=== PATIENT | male | born 1940 | race Caucasian/White ===

== ENCOUNTER 2020-03-17 18:17 | Inpatient (IN) | payer MEDICARE, MEDICAID ==
[~2020-03-17] VITALS: Ht 175.3 cm; Wt 86.2 kg
[2020-03-17 19:09] VITALS: BP 110/56
[2020-03-17 20:04] VITALS: BP 126/62
[2020-03-17 20:14] LABS: APPEARANCE,URINE SLIGHTLY CLOUDY; BILIRUBIN, URINE NEGATIVE (NEGATIVE); GLUCOSE, URINE (UA) NEGATIVE (NEGATIVE); KETONES,URINE 1+ (NEGATIVE); LEUKOCYTE ESTERASE ,URINE 2+ (NEGATIVE); NITRITE,URINE POSITIVE (NEGATIVE); PH,URINE 5 (4.5-8.0); PROTEIN,URINE 3+ (NEGATIVE); UROBILINOGEN,URINE NORMAL MG/DL (0.0-1.0)
[2020-03-17 20:15] LABS: COLOR,URINE YELLOW
[2020-03-17 20:15] LABS: BASOPHILS % (AUTO) 0.7 % (0.0-2.0); EOSINOPHILS % (AUTO) 0.1 % (0.0-3.0); HEMATOCRIT 45.5 % (42.0-52.0); HEMOGLOBIN 15.7 G/DL (14.2-18.0); LYMPHOCYTES % (AUTO) 17.8 % (20.0-45.0); MEAN CORPUSCULAR VOLUME 88 FL (80-99); MONOCYTES % (AUTO) 12.7 % (1.0-10.0); NEUTROPHILS % (AUTO) 68.8 % (45.0-75.0); PLATELET COUNT 111 K/UL (150-450); RED BLOOD COUNT 5.14 M/UL (4.70-6.10); RED CELL DISTRIBUTION WIDTH 14.4 % (11.6-14.8); WHITE BLOOD COUNT 7.8 K/UL (4.8-10.8)
[2020-03-17 20:27] LABS: CALCIUM 9.1 MG/DL (8.5-10.1); CREATININE 2.1 MG/DL (0.55-1.30); POTASSIUM 4.2 MMOL/L (3.5-5.1)
[2020-03-17] MEDS ORDERED: Nitroglycerin Subl 0.4mg tab SL PRN (20:45)
[2020-03-17] MEDS ORDERED: Milk of Magnesia 30ml Ud ORAL PRN (20:45)
[2020-03-17 20:52] VITALS: BP 140/87
[2020-03-17 20:59] LABS: ALBUMIN 3.3 G/DL (3.4-5.0); ALBUMIN/GLOBULIN RATIO 0.8 (1.0-2.7); BILIRUBIN,TOTAL 0.4 MG/DL (0.2-1.0); CKMB 1.9 NG/ML (0.0-3.6)
[2020-03-17] MEDS ORDERED: Heparin 5000 units/ml inj SUBQ SCH (21:00)
[2020-03-17 22:10] VITALS: BP 251/203
[2020-03-17 22:32] VITALS: BP 151/96
--- NOTE | 2020-03-17 22:59 | Emergency Room Report ---
History of Present Illness General Chief Complaint: Vomiting Source: Medical Record, EMS Present Illness HPI 79-year-old male presents to ED for evaluation. In by EMS from nursing home facility. Reported fever, cough, shortness of breath x1 day. Febrile at facility. Patient is a poor historian. Denies chest pain or shortness of breath. No other aggravating relieving factors. 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 COVID-19 Screening: Negative COVID-19 COVID-19 Testing Source: 03/04 Patient History Past Medical History: HTN Past Surgical History: none Pertinent Family History: none Social History: Denies: smoking, alcohol use, drug use Immunizations: UTD Reviewed Nursing Documentation: PMH: Agreed; PSxH: Agreed Nursing Documentation-PMH Past Medical History: No History, Except For Hx Cardiac Problems: Yes - atherosclerotic heart disease, hyperlipidemia, Hx Hypertension: Yes Review of Systems All Other Systems: limited Physical Exam Vital Signs Date Time Temp Pulse Resp B/P (MAP) Pulse Ox O2 Delivery O2 Flow Rate FiO2 03/17/20 18:22 99.3 82 22 110/56 (74) 94 Room Air 03/17/20 20:20 4.0 Sp02 EP Interpretation: reviewed, normal General Appearance: no apparent distress, alert, GCS 15, non-toxic Head: normocephalic, atraumatic Eyes: bilateral eye normal inspection, bilateral eye PERRL ENT: hearing grossly normal, normal pharynx, no angioedema, normal voice Neck: full range of motion, supple/symm/no masses Respiratory: chest non-tender, crackles, speaking full sentences Cardiovascular #1: regular rate, rhythm, no edema Cardiovascular #2: 2+ carotid (R), 2+ carotid (L), 2+ radial (R), 2+ radial ( L), 2+ dorsalis pedis (R), 2+ dorsalis pedis (L) Gastrointestinal: normal bowel sounds, non tender, soft, non-distended, no guarding, no rebound Rectal: deferred Genitourinary: normal inspection, no CVA tenderness Musculoskeletal: back normal, normal range of motion, gait/station normal, non-tender Neurologic: alert, motor strength/tone normal, oriented x3, sensory intact, responsive, speech normal Psychiatric: judgement/insight normal, memory normal, mood/affect normal, no suicidal/homicidal ideation Reflexes: 3+ bicep (R), 3+ bicep (L), 3+ tricep (R), 3+ tricep (L), 3+ knee (R), 3+ knee (L) Skin: other - see nursing notes Lymphatic: no adenopathy Procedures Critical Care Time Critical Care Time i. I feel this is a highly complex case requiring extensive working including EKG/Rhythm strip, Xray/CT/US, Blood/urine lab work, repeat exams while in ED, and administration of strong opiates/narcotics for pain control, admission to hospital or close patient follow up. Total time: 60 min bedside evaluation and treatment excludes procedures (EKG). Reason for critical care: Respiratory distress, hypoxia, fever Possible complications: hypotension, hypertension, WA, shock, arrhythmias, metabolic acidosis, end organ damage, respiratory failure. Interventions: Labs, EKG, chest x-ray, suctioning by respiratory, nonrebreather, rapid Covid, broad-spectrum antibiotics, dexamethasone, Lovenox Course: Patient presenting with fever, cough, shortness of breath from nursing home facility. Patient very congested and suctioning provided by respiratory. Placed on nonrebreather with O2 sats improved. Covid positive. Has UTI. Troponin elevated. Antibiotics given. Lovenox given. Dexamethasone given. BP elevated. Given hydralazine with BP improved Consultations: nursing staff, EMS, family Performed by: Dr Estrella Tolerated well condition =serious j. because of unstable vital signs this patient had a condition that could potentially threaten life or limb. I feel this is a critical patient who required my full attention while patient was considered critical. Total Critical Care Time excluding procedures was greater than 60 minutes Medical Decision Making Diagnostic Impression: Primary Impression: COVID-19 Additional Impressions: UTI (urinary tract infection) Qualified Codes: N39.0 - Urinary tract infection, site not specified Elevated troponin Hypertension Qualified Codes: I10 - Essential (primary) hypertension Renal insufficiency ER Course Hospital Course 79 yo M presents with fevre, cough, SOB Differential diagnoses include: Pneumonia, CHF exacerbation, pneumothorax, fluid overload Clinical course Patient placed on stretcher. in isolation. i wore full PPE. 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 After initial history and physical, I ordered labs, IV fluids, EKG, chest x-ray, blood cultures, UA. Vigorous suctioning and placed on nonrebreather with O2 sats and respiratory status improved Labs -no leukocytosis, hemoglobin/hematocrit stable, BUN/Cr elevated, lactate elevated, troponins elevated CXR -no acute consolidation EKG - NSR, no acute ishcemic changes interpreted by me Covid positive. Antibiotics given. Lovenox given. Dexamethasone given. BP treated with hydralazine and labetalol. Case discussed with Dr. Alexander and he agreed to the patient to his service for further care and support I feel this is a highly complex case requiring extensive working including EKG/Rhythm strip, Xray/CT/US, Blood/urine lab work, repeat exams while in ED, and administration of strong opiates/narcotics for pain control, admission to hospital or close patient follow up. Diagnosis - COVID19, UTI, elevated trop, hypertension, renal insufficiency Patient admitted to telemetry in serious condition Laboratory Tests Test 03/17/20 19:20 03/17/20 19:55 03/17/20 20:50 White Blood Count 7.8 K/UL (4.8-10.8) Red Blood Count 5.14 M/UL (4.70-6.10) Hemoglobin 15.7 G/DL (14.2-18.0) Hematocrit 45.5 % (42.0-52.0) Mean Corpuscular Volume 88 FL (80-99) Mean Corpuscular Hemoglobin 30.6 PG (27.0-31.0) Mean Corpuscular Hemoglobin Concent 34.5 G/DL (32.0-36.0) Red Cell Distribution Width 14.4 % (11.6-14.8) Platelet Count 111 K/UL (150-450) L Mean Platelet Volume 6.4 FL (6.5-10.1) L Neutrophils (%) (Auto) 68.8 % (45.0-75.0) Lymphocytes (%) (Auto) 17.8 % (20.0-45.0) L Monocytes (%) (Auto) 12.7 % (1.0-10.0) H Eosinophils (%) (Auto) 0.1 % (0.0-3.0) Basophils (%) (Auto) 0.7 % (0.0-2.0) Prothrombin Time 11.5 SEC (9.30-11.50) Prothromb Time International Ratio 1.0 (0.9-1.1) Activated Partial Thromboplast Time 32 SEC (23-33) D-Dimer 2.50 mg/L FEU (0.00-0.49) H Sodium Level 142 MMOL/L (136-145) Potassium Level 4.2 MMOL/L (3.5-5.1) Chloride Level 106 MMOL/L (98-107) Carbon Dioxide Level 23 MMOL/L (21-32) Anion Gap 13 mmol/L (5-15) Blood Urea Nitrogen 42 mg/dL (7-18) H Creatinine 2.1 MG/DL (0.55-1.30) H Estimat Glomerular Filtration Rate 30.5 mL/min (>60) Glucose Level 91 MG/DL (74-106) Lactic Acid Level 2.90 mmol/L (0.4-2.0) H 2.20 mmol/L (0.66-2.22) Calcium Level 9.1 MG/DL (8.5-10.1) Ferritin 347 NG/ML (8-388) Total Bilirubin 0.4 MG/DL (0.2-1.0) Aspartate Amino Transf (AST/SGOT) 33 U/L (15-37) Alanine Aminotransferase (ALT/SGPT) 29 U/L (12-78) Alkaline Phosphatase 84 U/L (46-116) Lactate Dehydrogenase 160 U/L (81-234) Total Creatine Kinase 129 U/L (26-308) Creatine Kinase MB 1.9 NG/ML (0.0-3.6) Creatine Kinase MB Relative Index 1.4 Troponin I 0.474 ng/mL (0.000-0.056) C-Reactive Protein, Quantitative 13.6 mg/dL (0.00-0.90) H Pro-B-Type Natriuretic Peptide 3933 pg/mL (0-125) H Total Protein 7.7 G/DL (6.4-8.2) Albumin 3.3 G/DL (3.4-5.0) L Globulin 4.4 g/dL Albumin/Globulin Ratio 0.8 (1.0-2.7) L Lipase 156 U/L (73-393) Urine Color Yellow Urine Appearance Slightly cloudy Urine pH 5 (4.5-8.0) Urine Specific [place] 1.020 (1.005-1.035) Urine Protein 3+ (NEGATIVE) H Urine Glucose (UA) Negative (NEGATIVE) Urine Ketones 1+ (NEGATIVE) H Urine Blood 3+ (NEGATIVE) H Urine Nitrite Positive (NEGATIVE) H Urine Bilirubin Negative (NEGATIVE) Urine Urobilinogen Normal MG/DL (0.0-1.0) Urine Leukocyte Esterase 2+ (NEGATIVE) H Urine RBC 5-10 /HPF (0 - 0) H Urine WBC 20-30 /HPF (0 - 0) H Urine Squamous Epithelial Cells Occasional /LPF Urine Bacteria Many /HPF (NONE) H EKG Diagnostic Results Troponin ordered: Yes Rate: normal Rhythm: NSR ST Segments: no acute changes ASA given to the pt in ED: Yes Rhythm Strip Diag. Results EP Interpretation: yes Rhythm: NSR, no PVC's, no ectopy Chest X-Ray Diagnostic Results Chest X-Ray Diagnostic Results : Chest X-Ray Ordered: Yes # of Views/Limited/Complete: 1 View Indication: Shortness of Breath EP Interpretation: Yes Interpretation: no consolidation, no effusion, no pneumothorax, no acute cardiopulmonary disease Impression: No acute disease Electronically Signed by: Electronically signed by Gerson Estrella MD Last Vital Signs Date Time Temp Pulse Resp B/P (MAP) Pulse Ox O2 Delivery O2 Flow Rate FiO2 03/17/20 22:32 151/96 03/17/20 22:10 111 24 98 Non-Rebreather 15.0 03/17/20 20:52 99.3 Status: improved Disposition: ADMITTED INPATIENT Condition: Serious Referrals: Mike Alexander MD (PCP) Gerson Estrella MD Mar 17, 2020 22:59
[2020-03-17] MEDS ORDERED: Enoxaparin 40mg Inj SUBQ ONE (23:00)
[2020-03-17] MEDS ORDERED: Labetalol 5mg/ml 20ml vial IV ONE (23:00)
[2020-03-17] MEDS ORDERED: dexAMETHasone 10mg/ml Inj IV ONE (23:00)
[2020-03-18] MEDS ORDERED: Albuterol ud Inhalation HHN ONE
[2020-03-18] MEDS ORDERED: GABAPENTIN100 MG ORAL (03:15)
[2020-03-18] MEDS ORDERED: RIVASTIGMINE1.5 MG PO (03:15)
[2020-03-18] MEDS ORDERED: AMLODIPINE BES2.5 MG ORAL (03:15)
[2020-03-18] MEDS ORDERED: MIRALAX17 G2 ORAL (03:15)
[2020-03-18] MEDS ORDERED: ATORVASTATIN CA20 MG ORAL (03:15)
[2020-03-18] MEDS ORDERED: COREG6.25 MG ORAL (03:15)
[2020-03-18] MEDS ORDERED: ASPIRIN81 MG ORAL (03:15)
[2020-03-18] MEDS ORDERED: SERTRALINE HCL25 MG ORAL (03:20)
[2020-03-18] MEDS ORDERED: ACETAMINOPHEN325 M1 ORAL ×2 (03:20)
[2020-03-18] MEDS ORDERED: TRAZODONE HCL50 MG ORAL (03:20)
[2020-03-18] MEDS ORDERED: PLAVIX75 MG ORAL (03:20)
[2020-03-18 04:00] VITALS: BP 121/70
--- NOTE | 2020-03-18 04:14 | Consultation ---
DATE OF CONSULTATION: 03/17/2020 CARDIOLOGY CONSULTATION CONSULTING PHYSICIAN: Joel Rowe M.D. REQUESTING PHYSICIAN: Mike Alexander M.D. REASON FOR CONSULTATION: Elevated troponin level. HISTORY OF PRESENT ILLNESS: This 79-year-old male, residing at a long term facility was febrile with shortness of breath and cough. He was brought to the emergency room for evaluation where a rapid COVID-19 swab was confirmatory as positive. The patient did not have any chest pain, although had some shortness of breath according to staff members. His laboratory values in the emergency room were notable for an elevated troponin level of 0.41. I have been asked to address cardiovascular care and management. PAST MEDICAL HISTORY: Hypertension, hyperlipidemia, ____, and dementia. MEDICATIONS: Reviewed and reconciled. ALLERGIES: None known. SOCIAL HISTORY: No record of smoking, alcohol, or substance abuse. FAMILY HISTORY: Not known. REVIEW OF SYSTEMS: Cannot be reliably obtained. PHYSICAL EXAMINATION: VITAL SIGNS: Blood pressure 110/56, pulse 82, respirations 22, temperature 99.3. HEENT: Conjunctivae pink. Oropharynx clear. No thrush. NECK: Supple. No adenopathy. LUNGS: Coarse breath sounds with rhonchi. CARDIAC: Regular rhythm and rate. Normal S1 and S2 with a fourth heart sound. ABDOMEN: Soft. EXTREMITIES: No edema. LABORATORY DATA: D-dimer 2.5. ABG, 7.26, 32, 67. White count 7.8 and hemoglobin 15.7. Urinalysis with 20 to 30 white cells. Lactic acid 2.9. Troponin 0.47. CRP 14. Pro-natriuretic peptide 3933. BUN 42, creatinine 2.1, potassium 4.2, chloride 106, sodium 142, and bicarb 23. IMPRESSION: 1. Critical condition. 2. Guarded prognosis. 3. COVID-19 pneumonia. 4. Hypoxia. 5. Acute respiratory insufficiency. 6. Acute myocardial ischemia and possible [id number] myocardial infarction. 7. Acute diastolic congestive heart failure. 8. Lactic acidosis. 9. Acute and possibly chronic kidney disease. PLAN: 1. Cardiac monitoring. 2. Isolation. 3. Full anticoagulation. 4. Hold diuresis. 5. Serial troponin level. 6. Antiplatelet therapy. 7. Beta blockade and nitrates. 8. Reassess volume status and consider diuresis over the next 24 hours. 9. Follow up troponin. 10. Lactic acid levels are pending. Joel Rowe M.D. DR: ERNIE JOB#: [id number] CC:
[2020-03-18] MEDS ORDERED: Piperacillin/Tazobactam 3.375 GM in NS 110 ML IVPB SCH (06:00)
[2020-03-18 08:00] VITALS: BP 142/101
[2020-03-18] MEDS: Enoxaparin 80mg Inj SUBQ SCH (09:00)
--- NOTE | 2020-03-18 09:31 | Diagnostic Imaging Report ---
Indication: Cough Technique: XRAY Chest 1v Comparison: None Findings: Heart is enlarged. There is evidence of prior cardiac surgery. Mediastinal contours are sharp. Thoracic aorta appears ectatic. There are streaky opacities at the left base. No significant pleural effusion. No pneumothorax. No radiographic evidence of pulmonary edema. No appreciable acute osseous body. IMPRESSION: Streaky opacities at the left base which may be related to subsegmental atelectasis. Possibility of developing pneumonia not excluded given history of cough. These correlate clinically. Cardiomegaly and evidence of prior cardiac surgery with median sternotomy.
[2020-03-18 10:04] LABS: HEMATOCRIT 44.4 % (42.0-52.0); HEMOGLOBIN 15.5 G/DL (14.2-18.0); MEAN CORPUSCULAR VOLUME 87 FL (80-99); PLATELET COUNT 89 K/UL (150-450); RED CELL DISTRIBUTION WIDTH 14.6 % (11.6-14.8); WHITE BLOOD COUNT 14.8 K/UL (4.8-10.8)
[2020-03-18] MEDS: TraZODone 50mg tab ORAL SCH ×2 (10:21→21:53)
[2020-03-18] MEDS: Aspirin EC 81mg tab ORAL SCH (10:22)
[2020-03-18] MEDS: Exelon 1.5mg cap ORAL SCH ×2 (10:23→17:25)
[2020-03-18] MEDS: Sertraline 50mg tab ORAL SCH (10:23)
[2020-03-18 11:01] LABS: ALBUMIN/GLOBULIN RATIO 0.8 (1.0-2.7); BILIRUBIN,TOTAL 0.4 MG/DL (0.2-1.0); CALCIUM 8.2 MG/DL (8.5-10.1); CREATININE 1.7 MG/DL (0.55-1.30); POTASSIUM 4.4 MMOL/L (3.5-5.1)
[2020-03-18] MEDS ORDERED: Albuterol 90mcg Inhaler 8gm INH PRN (11:15)
--- NOTE | 2020-03-18 11:15 | History and Physical Report ---
DATE OF ADMISSION: 03/17/2020 CHIEF COMPLAINT AND REASON FOR HOSPITALIZATION: The patient admitted with fever, possible sepsis, pyelonephritis, COVID-19 positive, dehydration, weakness, possible acute MD. HISTORY OF PRESENT ILLNESS: The patient is well known to me. He is an 79-year-old gentleman, resident of an [facility]. He has a history of coronary artery disease status post CABG, peripheral vascular disease status post right and left Syme's amputation, history of pyelonephritis, I believe in July 2019 with fever 101.2 in the long term and emesis. He is a poor historian. 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 PAST SURGICAL HISTORY: CABG, right and left Syme's. MEDICATIONS: From the [facility] are reviewed as follows: Exelon 1.5 mg b.i.d., gabapentin 300 mg b.i.d., MiraLAX p.r.n., Plavix 75 mg daily, sertraline 100 mg daily, trazodone 50 mg at bedtime, Tylenol p.r.n., amlodipine 2.5 mg daily, aspirin 81 mg daily, atorvastatin 10 mg daily, Coreg 6.25 mg b.i.d. SYSTEM REVIEW: At this time, the patient is on BiPAP and a poor historian. Major problems as above. He is unable to give clear system review. PHYSICAL EXAMINATION: VITAL SIGNS: Recorded in the computer. GENERAL: The patient is lying in bed, on BiPAP. HEAD, EYES, EARS, NOSE, AND THROAT: There is no scleral icterus. Oral mucosa appears clear. NECK: No adenopathy. LUNGS: Show coarse rhonchi. HEART: Regular rhythm. No murmur. ABDOMEN: Soft without organomegaly. EXTREMITIES: No edema. 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 There is hyperpigmentation of the lower extremities. NEUROLOGIC: He is alert, generally very weak. No facial asymmetry. He moves all extremities. Has a moderate parkinsonian tremor. LABORATORY AND DIAGNOSTIC DATA: Review of pertinent labs, chest x-ray shows streaky atelectasis but no major infiltrate. Urinalysis shows 20 to 30 white cells per high-power field and 5 to 10 red cells, 3+ protein, 1+ ketones, 2+ blood. Rapid test for COVID-19 is positive. White count 7.8, hemoglobin 15.7. ABG, pH 7.26, pCO2 32.6, pO2 of 67.4. The lactic acid 2.9 and 2.2. BUN 42, creatinine 2.1 which is above his baseline which is less than 2. Troponin 0.474. C-reactive protein high at 13.6. BNP of 3933. IMPRESSION: 1. UTI and likely pyelonephritis. 2. COVID-19 positive. 3. Acute non-ST elevation myocardial infarction. 4. Chronic diastolic congestive heart failure. 5. Acute kidney injury, likely dehydration. 6. Acute respiratory failure likely secondary to sepsis and COVID-19. PLAN: 1. We will give him broad-spectrum antibiotics. 2. Anticoagulation. 3. Follow up labs. 4. Anti-ischemic therapy. 5. Case discussed with his power of contracts attorney. 6. He has directives for Full Code. Mike Alexander M.D. DR: Nithya JOB#: [id number] CC:
[2020-03-18] MEDS: NovoLOG Insulin Flexpen SUBQ SCH ×2 (11:59→16:30)
[2020-03-18 12:00] VITALS: BP 125/88
--- NOTE | 2020-03-18 12:17 | Consultation ---
History of Present Illness General Date patient seen: Mar 18, 2020 Time patient seen: 11:00 Chief Complaint: COVID 19 PNA, resp failure Referring physician: Dr Alexander Reason for Consultation: resp failure Present Illness HPI 79 years old male with PMH of HTN, CAD, s/p CABG, HLD, PVD , status post bilateral Syme's procedure ; history of pyelonephritis , CVA ,Parkinsonian tremor, diastolic CHF , major depression , presented to emergency department from the [facility] due to fever, cough, and shortness of breath for 1 day. Patient apparently was febrile at the facility. No reported chest pain . Patient by himself a poor historian and unable to provide a history. Upon evaluation patient was hypoxic and required supplemental oxygen s. Patient had low-grade fever 99.3 Rapid COVID-19 was positive. Chest x-ray revealed streaky opacity at the left base, possibly related to subsegmental atelectasis. Possibility of developing pneumonia was not excluded. Cardiomegaly . Evidence of prior cardiac surgery with a median sternotomy. Laboratory work-up revealed initially no leukocytosis ,stable hemoglobin ,hematocrit, platelet count 111; but this morning WBC up to 14.8 , platelet count 89. ABG yesterday was done on 100% nonrebreather mask and revealed acidosis with pH 7.26 and hypoxia with O2 sat 90.7%. Chemistry demonstrated BUN 42, creatinine 2.1. Glucose 91. Stable electrolytes. Troponin elevated 0.474, pro BNP 3933. EKG revealed sinus rhythm, no acute ischemic changes Stable LFT and lipase. Ferritin 347, LDH 160, CRP 13.6 , D-dimer 2.5. Urinalysis revealed evidence of many bacteria, pyuria , +2 leukocyte esterase , +3 protein. In emergency department patient received empiric antibiotic , steroid, Lovenox, aspirin. Blood pressure later was elevated 251 over 203 and was treated with hydralazine and labetalol. Patient was changed to BiPAP and admitted to stepdown unit for further management. Pulmonary consult was requested to assist in management of this patient . PMH: HTN, HLD, CAD, PVD, CVA, CHF, depression, Past surgery: CABG, right and left Syme's procedures Social hx: unknown Family hx : unknown Allergy: NKDA Medications: reviewed Residence: [facility] Abx: Zosyn Allergies: Coded Allergies: No Known Allergies (Unverified , 03/17/20) Medication History Scheduled Amlodipine Besylate* (Amlodipine Besylate*), 2.5 MG ORAL DAILY, (Reported) Aspirin* (Aspirin*), 81 MG ORAL DAILY, (Reported) Atorvastatin Calcium* (Atorvastatin Calcium*), 10 MG ORAL BEDTIME, (Reported) Carvedilol (Coreg), 6.25 MG ORAL EVERY 12 HOURS, (Reported) Clopidogrel Bisulfate* (Plavix*), 75 MG ORAL DAILY, (Reported) Gabapentin* (Gabapentin*), 300 MG ORAL BID, (Reported) Polyethylene Glycol 3350* (Miralax*), 17 GM ORAL DAILY, (Reported) Rivastigmine Tartrate (Rivastigmine), 1.5 MG PO BID, (Reported) Sertraline Hcl* (Sertraline Hcl*), 25 MG ORAL DAILY, (Reported) Trazodone Hcl* (Desyrel*), 50 MG ORAL BEDTIME, (Reported) Scheduled PRN Acetaminophen* (Acetaminophen 325MG Tablet*), 650 MG ORAL Q6H PRN for Mild Pain (Pain Scale 1-3), (Reported) Acetaminophen* (Acetaminophen 325MG Tablet*), 650 MG ORAL Q4H PRN for Temp >100.5, (Reported) Patient History Healthcare decision maker Resuscitation status Full code Advanced Directive on File Review of Systems ROS Narrative unable to obtain due to patient's medical condition Physical Exam General Appearance: alert, other - resp distress, Lines, tubes and drains: peripheral HEENT: normocephalic, atraumatic, anicteric, PERRL, other - BiPAP mask on Neck: supple Respiratory/Chest: accessory muscle use, rhonchi - bilaterally, other - on BiPAP 16/10 Fio2 100%, tachypenic Cardiovascular/Chest: normal peripheral pulses, regular rhythm - tele SR with 1 st degreee AV block Abdomen: normal bowel sounds, non tender, soft Extremities: no calf tenderness, normal capillary refill, other - bilateral foor LISA procedure Skin Exam: warm/dry Neurologic: abnormal gait, alert - poorly responsive Musculoskeletal: atrophy - BLE Last 24 Hour Vital Signs Date Time Temp Pulse Resp B/P (MAP) Pulse Ox O2 Delivery O2 Flow Rate FiO2 03/18/20 10:31 94 142/101 03/18/20 08:00 79 03/18/20 08:00 98.0 94 48 142/101 (115) 100 03/18/20 08:00 100 03/18/20 04:00 100 03/18/20 04:00 Bi-pap 03/18/20 04:00 97.5 98 26 121/70 (87) 99 03/18/20 03:32 123 03/18/20 03:26 122 54 98 100 03/18/20 02:46 Bi-Pap 03/18/20 02:08 125 03/18/20 02:00 99.3 28 162/98 97 15.0 100 03/18/20 01:16 224/185 03/18/20 00:38 115 29 97 Bi-Pap 100 120 31 100 100 03/17/20 23:00 94 142/101 03/17/20 22:32 151/96 03/17/20 22:21 251/203 03/17/20 22:10 111 24 251/203 98 Non-Rebreather 15.0 03/17/20 21:45 105 96 Non-Rebreather 15.0 03/17/20 20:52 99.3 99 22 140/87 95 Simple Mask 8.0 03/17/20 20:20 95 Nasal Cannula 4.0 03/17/20 20:04 76 22 126/62 94 Room Air 03/17/20 19:09 82 22 Room Air 03/17/20 19:09 99.3 86 22 110/56 94 Room Air 03/17/20 18:22 99.3 82 22 110/56 (74) 94 Room Air Intake and Output 03/17/20 03/18/20 19:00 07:00 Output Total 350 ml Balance -350 ml Output Urine Total 350 ml # Bowel Movements 1 Laboratory Tests Test 03/17/20 19:20 03/17/20 19:55 03/17/20 20:50 03/17/20 23:43 White Blood Count 7.8 K/UL (4.8-10.8) Red Blood Count 5.14 M/UL (4.70-6.10) Hemoglobin 15.7 G/DL (14.2-18.0) Hematocrit 45.5 % (42.0-52.0) Mean Corpuscular Volume 88 FL (80-99) Mean Corpuscular Hemoglobin 30.6 PG (27.0-31.0) Mean Corpuscular Hemoglobin Concent 34.5 G/DL (32.0-36.0) Red Cell Distribution Width 14.4 % (11.6-14.8) Platelet Count 111 K/UL (150-450) L Mean Platelet Volume 6.4 FL (6.5-10.1) L Neutrophils (%) (Auto) 68.8 % (45.0-75.0) Lymphocytes (%) (Auto) 17.8 % (20.0-45.0) L Monocytes (%) (Auto) 12.7 % (1.0-10.0) H Eosinophils (%) (Auto) 0.1 % (0.0-3.0) Basophils (%) (Auto) 0.7 % (0.0-2.0) Prothrombin Time 11.5 SEC (9.30-11.50) Prothromb Time International Ratio 1.0 (0.9-1.1) Activated Partial Thromboplast Time 32 SEC (23-33) D-Dimer 2.50 mg/L FEU (0.00-0.49) H Sodium Level 142 MMOL/L (136-145) Potassium Level 4.2 MMOL/L (3.5-5.1) Chloride Level 106 MMOL/L (98-107) Carbon Dioxide Level 23 MMOL/L (21-32) Anion Gap 13 mmol/L (5-15) Blood Urea Nitrogen 42 mg/dL (7-18) H Creatinine 2.1 MG/DL (0.55-1.30) H Estimat Glomerular Filtration Rate 30.5 mL/min (>60) Glucose Level 91 MG/DL (74-106) Lactic Acid Level 2.90 mmol/L (0.4-2.0) H 2.20 mmol/L (0.66-2.22) Calcium Level 9.1 MG/DL (8.5-10.1) Ferritin 347 NG/ML (8-388) Total Bilirubin 0.4 MG/DL (0.2-1.0) Aspartate Amino Transf (AST/SGOT) 33 U/L (15-37) Alanine Aminotransferase (ALT/SGPT) 29 U/L (12-78) Alkaline Phosphatase 84 U/L (46-116) Lactate Dehydrogenase 160 U/L (81-234) Total Creatine Kinase 129 U/L (26-308) Creatine Kinase MB 1.9 NG/ML (0.0-3.6) Creatine Kinase MB Relative Index 1.4 Troponin I 0.474 ng/mL (0.000-0.056) C-Reactive Protein, Quantitative 13.6 mg/dL (0.00-0.90) H Pro-B-Type Natriuretic Peptide 3933 pg/mL (0-125) H Total Protein 7.7 G/DL (6.4-8.2) Albumin 3.3 G/DL (3.4-5.0) L Globulin 4.4 g/dL Albumin/Globulin Ratio 0.8 (1.0-2.7) L Lipase 156 U/L (73-393) Urine Color Yellow Urine Appearance Slightly cloudy Urine pH 5 (4.5-8.0) Urine Specific [place] 1.020 (1.005-1.035) Urine Protein 3+ (NEGATIVE) H Urine Glucose (UA) Negative (NEGATIVE) Urine Ketones 1+ (NEGATIVE) H Urine Blood 3+ (NEGATIVE) H Urine Nitrite Positive (NEGATIVE) H Urine Bilirubin Negative (NEGATIVE) Urine Urobilinogen Normal MG/DL (0.0-1.0) Urine Leukocyte Esterase 2+ (NEGATIVE) H Urine RBC 5-10 /HPF (0 - 0) H Urine WBC 20-30 /HPF (0 - 0) H Urine Squamous Epithelial Cells Occasional /LPF Urine Bacteria Many /HPF (NONE) H Arterial Blood pH 7.262 (7.350-7.450) Arterial Blood Partial Pressure CO2 32.6 mmHg (35.0-45.0) L Arterial Blood Partial Pressure O2 67.4 mmHg (75.0-100.0) L Arterial Blood HCO3 14.4 mmol/L (22.0-26.0) *L Arterial Blood Oxygen Saturation 90.7 % (95-100) L Arterial Blood Base Excess -11.4 (-2-2) *L Tj Test Positive Test 03/18/20 09:50 White Blood Count 14.8 K/UL (4.8-10.8) #H Red Blood Count 5.10 M/UL (4.70-6.10) Hemoglobin 15.5 G/DL (14.2-18.0) Hematocrit 44.4 % (42.0-52.0) Mean Corpuscular Volume 87 FL (80-99) Mean Corpuscular Hemoglobin 30.5 PG (27.0-31.0) Mean Corpuscular Hemoglobin Concent 35.0 G/DL (32.0-36.0) Red Cell Distribution Width 14.6 % (11.6-14.8) Platelet Count 89 K/UL (150-450) L Mean Platelet Volume 8.0 FL (6.5-10.1) Neutrophils (%) (Auto) % (45.0-75.0) Lymphocytes (%) (Auto) % (20.0-45.0) Monocytes (%) (Auto) % (1.0-10.0) Eosinophils (%) (Auto) % (0.0-3.0) Basophils (%) (Auto) % (0.0-2.0) Neutrophils % (Manual) Pending Lymphocytes % (Manual) Pending Platelet Estimate Pending Platelet Morphology Pending Sodium Level 142 MMOL/L (136-145) Potassium Level 4.4 MMOL/L (3.5-5.1) Chloride Level 111 MMOL/L (98-107) H Carbon Dioxide Level 15 MMOL/L (21-32) L Anion Gap 16 mmol/L (5-15) H Blood Urea Nitrogen 39 mg/dL (7-18) H Creatinine 1.7 MG/DL (0.55-1.30) H Estimat Glomerular Filtration Rate 38.9 mL/min (>60) Glucose Level 171 MG/DL (74-106) H Calcium Level 8.2 MG/DL (8.5-10.1) L Total Bilirubin 0.4 MG/DL (0.2-1.0) Aspartate Amino Transf (AST/SGOT) 52 U/L (15-37) H Alanine Aminotransferase (ALT/SGPT) 34 U/L (12-78) Alkaline Phosphatase 72 U/L (46-116) Troponin I 7.017 ng/mL (0.000-0.056) Pro-B-Type Natriuretic Peptide 15148 pg/mL (0-125) H Total Protein 6.7 G/DL (6.4-8.2) Albumin 3.0 G/DL (3.4-5.0) L Globulin 3.7 g/dL Albumin/Globulin Ratio 0.8 (1.0-2.7) L Microbiology Date/Time Source Procedure Growth Status 03/17/20 22:12 Nasopharynx SARS-CoV-2 RdRp Gene Assay - Final Complete 03/17/20 19:55 Rectum Received Height (Feet): 5 Height (Inches): 9.00 Weight (Pounds): 190 Medications Current Medications Medications (Trade) Dose Ordered Sig/Blanquita Route PRN Reason Start Time Stop Time Status Last Admin Dose Admin Acetaminophen (Tylenol) 650 mg Q4H PRN ORAL Mild Pain (Pain Scale 1-3) 03/17/20 20:45 04/16/20 20:44 Acetaminophen (Tylenol) 650 mg Q4H PRN ORAL Temp >100.5 03/17/20 20:45 04/16/20 20:44 Albuterol Sulfate (Proventil MDI) 2 puff Q4H PRN INH Shortness of Breath 03/18/20 11:15 06/16/20 11:14 Aspirin (Ecotrin) 81 mg DAILY ORAL 03/18/20 09:00 05/02/20 08:59 03/18/20 10:22 Atorvastatin Calcium (Lipitor) 80 mg BEDTIME ORAL 03/18/20 21:00 06/16/20 20:59 Clopidogrel Bisulfate (Plavix) 75 mg DAILY ORAL 03/18/20 09:00 04/17/20 08:59 03/18/20 10:23 Dexamethasone Sodium Phosphate (Decadron 4mg/ml vial) 6 mg DAILY IVP 03/18/20 11:00 03/27/20 09:01 Dextrose (Dextrose 50%) 25 ml Q30M PRN IV Hypoglycemia 03/18/20 11:00 06/16/20 10:59 Dextrose (Dextrose 50%) 50 ml Q30M PRN IV Hypoglycemia 03/18/20 11:00 06/16/20 10:59 Enoxaparin Sodium (Lovenox) 80 mg DAILY SUBQ 03/18/20 09:00 06/16/20 08:59 Famotidine (Pepcid) 20 mg BID ORAL 03/18/20 18:00 06/16/20 17:59 Gabapentin (Neurontin) 300 mg BID ORAL 03/18/20 09:00 04/17/20 08:59 03/18/20 10:23 Insulin Aspart (NovoLOG) BEFORE MEALS AND HS SUBQ 03/18/20 11:30 06/16/20 11:29 Isosorbide Mononitrate (Imdur) 30 mg QHS ORAL 03/18/20 21:00 04/17/20 20:59 Magnesium Hydroxide (Mom) 30 ml HSPRN PRN ORAL Constipation 03/17/20 20:45 04/16/20 20:44 Metoprolol Tartrate (Lopressor) 25 mg Q12HR ORAL 03/17/20 21:15 06/15/20 21:14 03/18/20 10:31 Nitroglycerin (Ntg) 0.4 mg Q5M X 3 DOSES PRN SL Prn Chest Pain 03/17/20 20:45 04/16/20 20:44 Ondansetron HCl (Zofran) 4 mg Q6H PRN IVP Nausea & Vomiting 03/17/20 20:45 04/16/20 20:44 Piperacillin Sod/ Tazobactam Sod 3.375 gm/Sodium Chloride 110 ml @ 27.5 mls/hr Q8HR IVPB 03/18/20 14:00 03/25/20 13:59 Rivastigmine Tartrate (Exelon) 1.5 mg TWICE A DAY ORAL 03/18/20 09:00 04/17/20 08:59 03/18/20 10:23 Sertraline HCl (Zoloft) 100 mg DAILY ORAL 03/18/20 09:00 04/17/20 08:59 03/18/20 10:23 Sodium Chloride 1,000 ml @ 75 mls/hr [id number] IV 03/17/20 21:45 04/16/20 21:44 03/18/20 04:49 Trazodone HCl (Desyrel) 50 mg QHS ORAL 03/17/20 21:00 04/16/20 20:59 03/18/20 10:21 Assessment/Plan Assessment/Plan: ASSESSMENT Acute hypoxemic respiratory failure likely due to Covid pneumonia COVID-19 pneumonia Elevated troponin , probably due to demand, Possible NSTEMI Lactic acidosis UTI , possible pyelo ( with history of prior pyelonephritis) Acute kidney injury on chronic kidney disease Hypertension with initial hypertensive urgency 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% Aortic stenosis PLAN OF CARE SDU droplet isolation BiPAP ABG stat will titrate settings as needed low threshold for intubation full code steroids no Remdesivir given renal failure full a/c with Lovenox Proventil MDI prn abx - Zosyn fup with cx fup with inflammatory markers to access risk for cytokine storm CXR in am Venous Duplex BLE ECHO noted with rEF 40% , evidence of cardio on board DAPT with ASA and Plavix, BB, nitrate serial troponin full a/c with Lovenox GI prophylaxis monitor volumes per cardio->no diuresis fro now supportive care case discussed and evaluated by supervising physician Echocardiogram revealed mildly depressed left ventricular systolic function with estimated ejection fraction 40%. Aortic stenosis. Right ventricular systolic pressure of 32 Suzette Crabtree NP Mar 18, 2020 12:17
--- NOTE | 2020-03-18 14:02 | Infectious Diseases Prog Note ---
Assessment/Plan Assessment/Plan Full consult dictated: A) 1) covid-19 virus infection, pna, hypoxia 2) TUCKER 3) pmh noted 4) allergies - nkda P) 1) zosyn, vancomycin, dexamethasone 2) use of remdesivir limited with TUCKER - will monitor patient on steroids and give if no improvement 3) monitor for hypoxia, labs and chest x-ray 4) on bipap 5) thank you Subjective Allergies: Coded Allergies: No Known Allergies (Unverified , 03/17/20) Objective Last 24 Hour Vital Signs Date Time Temp Pulse Resp B/P (MAP) Pulse Ox O2 Delivery O2 Flow Rate FiO2 03/18/20 12:00 Bi-pap Bi-pap 03/18/20 12:00 69 03/18/20 12:00 98.6 67 51 125/88 (100) 100 03/18/20 12:00 100 03/18/20 10:31 94 142/101 03/18/20 08:00 79 03/18/20 08:00 98.0 94 48 142/101 (115) 100 03/18/20 08:00 Bi-pap Bi-pap 03/18/20 08:00 100 03/18/20 04:00 100 03/18/20 04:00 Bi-pap 03/18/20 04:00 97.5 98 26 121/70 (87) 99 03/18/20 03:32 123 03/18/20 03:26 122 54 98 100 03/18/20 02:46 Bi-Pap 03/18/20 02:08 125 03/18/20 02:00 99.3 28 162/98 97 15.0 100 03/18/20 01:16 224/185 03/18/20 00:38 115 29 97 Bi-Pap 100 120 31 100 100 03/17/20 23:00 94 142/101 03/17/20 22:32 151/96 03/17/20 22:21 251/203 03/17/20 22:10 111 24 251/203 98 Non-Rebreather 15.0 03/17/20 21:45 105 96 Non-Rebreather 15.0 03/17/20 20:52 99.3 99 22 140/87 95 Simple Mask 8.0 03/17/20 20:20 95 Nasal Cannula 4.0 03/17/20 20:04 76 22 126/62 94 Room Air 03/17/20 19:09 82 22 Room Air 03/17/20 19:09 99.3 86 22 110/56 94 Room Air 03/17/20 18:22 99.3 82 22 110/56 (74) 94 Room Air Height (Feet): 5 Height (Inches): 9.00 Weight (Pounds): 190 Microbiology Date/Time Source Procedure Growth Status 03/17/20 22:12 Nasopharynx SARS-CoV-2 RdRp Gene Assay - Final Complete 03/17/20 19:55 Rectum Received Laboratory Tests Test 03/17/20 19:20 03/17/20 19:55 03/17/20 20:50 03/17/20 23:43 White Blood Count 7.8 K/UL (4.8-10.8) Red Blood Count 5.14 M/UL (4.70-6.10) Hemoglobin 15.7 G/DL (14.2-18.0) Hematocrit 45.5 % (42.0-52.0) Mean Corpuscular Volume 88 FL (80-99) Mean Corpuscular Hemoglobin 30.6 PG (27.0-31.0) Mean Corpuscular Hemoglobin Concent 34.5 G/DL (32.0-36.0) Red Cell Distribution Width 14.4 % (11.6-14.8) Platelet Count 111 K/UL (150-450) L Mean Platelet Volume 6.4 FL (6.5-10.1) L Neutrophils (%) (Auto) 68.8 % (45.0-75.0) Lymphocytes (%) (Auto) 17.8 % (20.0-45.0) L Monocytes (%) (Auto) 12.7 % (1.0-10.0) H Eosinophils (%) (Auto) 0.1 % (0.0-3.0) Basophils (%) (Auto) 0.7 % (0.0-2.0) Prothrombin Time 11.5 SEC (9.30-11.50) Prothromb Time International Ratio 1.0 (0.9-1.1) Activated Partial Thromboplast Time 32 SEC (23-33) D-Dimer 2.50 mg/L FEU (0.00-0.49) H Sodium Level 142 MMOL/L (136-145) Potassium Level 4.2 MMOL/L (3.5-5.1) Chloride Level 106 MMOL/L (98-107) Carbon Dioxide Level 23 MMOL/L (21-32) Anion Gap 13 mmol/L (5-15) Blood Urea Nitrogen 42 mg/dL (7-18) H Creatinine 2.1 MG/DL (0.55-1.30) H Estimat Glomerular Filtration Rate 30.5 mL/min (>60) Glucose Level 91 MG/DL (74-106) Lactic Acid Level 2.90 mmol/L (0.4-2.0) H 2.20 mmol/L (0.66-2.22) Calcium Level 9.1 MG/DL (8.5-10.1) Ferritin 347 NG/ML (8-388) Total Bilirubin 0.4 MG/DL (0.2-1.0) Aspartate Amino Transf (AST/SGOT) 33 U/L (15-37) Alanine Aminotransferase (ALT/SGPT) 29 U/L (12-78) Alkaline Phosphatase 84 U/L (46-116) Lactate Dehydrogenase 160 U/L (81-234) Total Creatine Kinase 129 U/L (26-308) Creatine Kinase MB 1.9 NG/ML (0.0-3.6) Creatine Kinase MB Relative Index 1.4 Troponin I 0.474 ng/mL (0.000-0.056) C-Reactive Protein, Quantitative 13.6 mg/dL (0.00-0.90) H Pro-B-Type Natriuretic Peptide 3933 pg/mL (0-125) H Total Protein 7.7 G/DL (6.4-8.2) Albumin 3.3 G/DL (3.4-5.0) L Globulin 4.4 g/dL Albumin/Globulin Ratio 0.8 (1.0-2.7) L Lipase 156 U/L (73-393) Urine Color Yellow Urine Appearance Slightly cloudy Urine pH 5 (4.5-8.0) Urine Specific [place] 1.020 (1.005-1.035) Urine Protein 3+ (NEGATIVE) H Urine Glucose (UA) Negative (NEGATIVE) Urine Ketones 1+ (NEGATIVE) H Urine Blood 3+ (NEGATIVE) H Urine Nitrite Positive (NEGATIVE) H Urine Bilirubin Negative (NEGATIVE) Urine Urobilinogen Normal MG/DL (0.0-1.0) Urine Leukocyte Esterase 2+ (NEGATIVE) H Urine RBC 5-10 /HPF (0 - 0) H Urine WBC 20-30 /HPF (0 - 0) H Urine Squamous Epithelial Cells Occasional /LPF Urine Bacteria Many /HPF (NONE) H Arterial Blood pH 7.262 (7.350-7.450) Arterial Blood Partial Pressure CO2 32.6 mmHg (35.0-45.0) L Arterial Blood Partial Pressure O2 67.4 mmHg (75.0-100.0) L Arterial Blood HCO3 14.4 mmol/L (22.0-26.0) *L Arterial Blood Oxygen Saturation 90.7 % (95-100) L Arterial Blood Base Excess -11.4 (-2-2) *L Tj Test Positive Test 03/18/20 09:50 03/18/20 11:53 03/18/20 12:40 White Blood Count 14.8 K/UL (4.8-10.8) #H Red Blood Count 5.10 M/UL (4.70-6.10) Hemoglobin 15.5 G/DL (14.2-18.0) Hematocrit 44.4 % (42.0-52.0) Mean Corpuscular Volume 87 FL (80-99) Mean Corpuscular Hemoglobin 30.5 PG (27.0-31.0) Mean Corpuscular Hemoglobin Concent 35.0 G/DL (32.0-36.0) Red Cell Distribution Width 14.6 % (11.6-14.8) Platelet Count 89 K/UL (150-450) L Mean Platelet Volume 8.0 FL (6.5-10.1) Neutrophils (%) (Auto) % (45.0-75.0) Lymphocytes (%) (Auto) % (20.0-45.0) Monocytes (%) (Auto) % (1.0-10.0) Eosinophils (%) (Auto) % (0.0-3.0) Basophils (%) (Auto) % (0.0-2.0) Differential Total Cells Counted 100 Neutrophils % (Manual) 74 % (45-75) Lymphocytes % (Manual) 6 % (20-45) L Monocytes % (Manual) 2 % (1-10) Eosinophils % (Manual) 0 % (0-3) Basophils % (Manual) 0 % (0-2) Band Neutrophils 18 % (0-8) H Platelet Estimate Decreased L Platelet Morphology Normal Anisocytosis 1+ Sodium Level 142 MMOL/L (136-145) Potassium Level 4.4 MMOL/L (3.5-5.1) Chloride Level 111 MMOL/L (98-107) H Carbon Dioxide Level 15 MMOL/L (21-32) L Anion Gap 16 mmol/L (5-15) H Blood Urea Nitrogen 39 mg/dL (7-18) H Creatinine 1.7 MG/DL (0.55-1.30) H Estimat Glomerular Filtration Rate 38.9 mL/min (>60) Glucose Level 171 MG/DL (74-106) H Calcium Level 8.2 MG/DL (8.5-10.1) L Total Bilirubin 0.4 MG/DL (0.2-1.0) Aspartate Amino Transf (AST/SGOT) 52 U/L (15-37) H Alanine Aminotransferase (ALT/SGPT) 34 U/L (12-78) Alkaline Phosphatase 72 U/L (46-116) Troponin I 7.017 ng/mL (0.000-0.056) Pro-B-Type Natriuretic Peptide 40828 pg/mL (0-125) H Total Protein 6.7 G/DL (6.4-8.2) Albumin 3.0 G/DL (3.4-5.0) L Globulin 3.7 g/dL Albumin/Globulin Ratio 0.8 (1.0-2.7) L POC Whole Blood Glucose 161 MG/DL (74-106) H Arterial Blood pH 7.435 (7.350-7.450) Arterial Blood Partial Pressure CO2 21.0 mmHg (35.0-45.0) *L Arterial Blood Partial Pressure O2 302.5 mmHg (75.0-100.0) H Arterial Blood HCO3 13.8 mmol/L (22.0-26.0) *L Arterial Blood Oxygen Saturation 99.1 % (95-100) Arterial Blood Base Excess -7.8 (-2-2) L Tj Test Positive Current Medications Medications (Trade) Dose Ordered Sig/Blanquita Route PRN Reason Start Time Stop Time Status Last Admin Dose Admin Acetaminophen (Tylenol) 650 mg Q4H PRN ORAL Mild Pain (Pain Scale 1-3) 03/17/20 20:45 1/7/21 20:44 Acetaminophen (Tylenol) 650 mg Q4H PRN ORAL Temp >100.5 03/17/20 20:45 04/16/20 20:44 Albuterol Sulfate (Proventil MDI) 2 puff Q4H PRN INH Shortness of Breath 03/18/20 11:15 06/16/20 11:14 Aspirin (Ecotrin) 81 mg DAILY ORAL 03/18/20 09:00 05/02/20 08:59 03/18/20 10:22 Atorvastatin Calcium (Lipitor) 80 mg BEDTIME ORAL 03/18/20 21:00 06/16/20 20:59 Clopidogrel Bisulfate (Plavix) 75 mg DAILY ORAL 03/18/20 09:00 04/17/20 08:59 03/18/20 10:23 Dexamethasone Sodium Phosphate (Decadron 4mg/ml vial) 6 mg DAILY IVP 03/18/20 11:00 03/27/20 09:01 03/18/20 11:45 Dextrose (Dextrose 50%) 25 ml Q30M PRN IV Hypoglycemia 03/18/20 11:00 06/16/20 10:59 Dextrose (Dextrose 50%) 50 ml Q30M PRN IV Hypoglycemia 03/18/20 11:00 06/16/20 10:59 Enoxaparin Sodium (Lovenox) 80 mg DAILY SUBQ 03/18/20 09:00 06/16/20 08:59 Famotidine (Pepcid) 20 mg BID ORAL 03/18/20 18:00 06/16/20 17:59 Gabapentin (Neurontin) 300 mg BID ORAL 03/18/20 09:00 04/17/20 08:59 03/18/20 10:23 Insulin Aspart (NovoLOG) BEFORE MEALS AND HS SUBQ 03/18/20 11:30 06/16/20 11:29 03/18/20 11:59 Isosorbide Mononitrate (Imdur) 30 mg QHS ORAL 03/18/20 21:00 04/17/20 20:59 Magnesium Hydroxide (Mom) 30 ml HSPRN PRN ORAL Constipation 03/17/20 20:45 04/16/20 20:44 Metoprolol Tartrate (Lopressor) 25 mg Q12HR ORAL 03/17/20 21:15 06/15/20 21:14 03/18/20 10:31 Nitroglycerin (Ntg) 0.4 mg Q5M X 3 DOSES PRN SL Prn Chest Pain 03/17/20 20:45 04/16/20 20:44 Ondansetron HCl (Zofran) 4 mg Q6H PRN IVP Nausea & Vomiting 03/17/20 20:45 04/16/20 20:44 Piperacillin Sod/ Tazobactam Sod 3.375 gm/Sodium Chloride 110 ml @ 27.5 mls/hr Q8HR IVPB 03/18/20 14:00 03/25/20 13:59 Rivastigmine Tartrate (Exelon) 1.5 mg TWICE A DAY ORAL 03/18/20 09:00 04/17/20 08:59 03/18/20 10:23 Sertraline HCl (Zoloft) 100 mg DAILY ORAL 03/18/20 09:00 04/17/20 08:59 03/18/20 10:23 Sodium Chloride 1,000 ml @ 75 mls/hr [id number] IV 03/17/20 21:45 04/16/20 21:44 03/18/20 04:49 Trazodone HCl (Desyrel) 50 mg QHS ORAL 03/17/20 21:00 04/16/20 20:59 03/18/20 10:21 Bety Steen MD Mar 18, 2020 14:02
[2020-03-18] MEDS: Piperacillin/Tazobactam 3.375 GM in NS 110 ML IVPB SCH ×2 (14:52→21:53)
[2020-03-18 16:00] VITALS: BP 129/73
[2020-03-18] MEDS ORDERED: Vancomycin 1.25gm Premix q24h IVPB SCH (17:00)
[2020-03-18 20:00] VITALS: BP 117/64
[2020-03-18] MEDS ORDERED: Imdur 30mg tab ORAL SCH (21:00)
[2020-03-18] MEDS ORDERED: Sodium Bicarbonate 100 ML in D5W 1000ml 1,000 ML IV SCH (21:00)
[2020-03-18] MEDS: Atorvastatin 80mg tab ORAL SCH (21:51)
--- NOTE | 2020-03-18 23:36 | Cardiology Progress Note ---
Subjective DATE OF SERVICE: Mar 18, 2020 Condition remains critical - prognosis guarded Troponin up above 7 Monitor sinus tachyarrhythmia 2D Echo: EF 40% with moderate aortic stenosis (1.2 cm2) and moderate mitral and tricuspid regurg. Patient remains with baseline confusion. Objective Last 24 Hour Vital Signs Date Time Temp Pulse Resp B/P (MAP) Pulse Ox O2 Delivery O2 Flow Rate FiO2 03/18/20 21:51 65 117/64 03/18/20 21:51 117/64 03/18/20 20:00 60 03/18/20 20:00 98.2 65 25 117/64 (81) 98 03/18/20 20:00 Bi-pap Bi-pap 03/18/20 20:00 100 03/18/20 19:54 98 Nasal Cannula 4.0 36 03/18/20 19:21 84 98 03/18/20 16:00 Bi-pap Bi-pap 03/18/20 16:00 61 03/18/20 16:00 100 03/18/20 16:00 99.0 60 25 129/73 (91) 98 03/18/20 15:20 66 38 97 50 03/18/20 12:00 Bi-pap Bi-pap 03/18/20 12:00 69 03/18/20 12:00 98.6 67 51 125/88 (100) 100 03/18/20 12:00 100 03/18/20 10:35 89 44 96 100 03/18/20 10:31 94 142/101 03/18/20 08:00 79 03/18/20 08:00 98.0 94 48 142/101 (115) 100 03/18/20 08:00 Bi-pap Bi-pap 03/18/20 08:00 100 03/18/20 07:12 87 40 100 100 03/18/20 04:00 100 03/18/20 04:00 Bi-pap 03/18/20 04:00 97.5 98 26 121/70 (87) 99 03/18/20 03:32 123 03/18/20 03:26 122 54 98 100 03/18/20 02:46 Bi-Pap 03/18/20 02:08 125 03/18/20 02:00 99.3 28 162/98 97 15.0 100 03/18/20 01:16 224/185 03/18/20 00:38 115 29 97 Bi-Pap 100 120 31 100 100 HEENT: normal ENT inspection RHYTHM: NSR, ST LUNGS: bilat. rhonchi and rales CARDIAC: normal rate, regular rhythm, normal S1 and S2, normal peripheral pulses, systolic murmur - 1/6 systolic ej murmur at base ABDOMEN: normal bowel sounds, non tender, no organomegaly EXTREMITIES: non-tender Laboratory Tests Test 03/17/20 23:43 03/18/20 09:50 03/18/20 11:53 03/18/20 12:40 Arterial Blood pH 7.262 (7.350-7.450) 7.435 (7.350-7.450) Arterial Blood Partial Pressure CO2 32.6 mmHg (35.0-45.0) L 21.0 mmHg (35.0-45.0) *L Arterial Blood Partial Pressure O2 67.4 mmHg (75.0-100.0) L 302.5 mmHg (75.0-100.0) H Arterial Blood HCO3 14.4 mmol/L (22.0-26.0) *L 13.8 mmol/L (22.0-26.0) *L Arterial Blood Oxygen Saturation 90.7 % (95-100) L 99.1 % (95-100) Arterial Blood Base Excess -11.4 (-2-2) *L -7.8 (-2-2) L Tj Test Positive Positive White Blood Count 14.8 K/UL (4.8-10.8) #H Red Blood Count 5.10 M/UL (4.70-6.10) Hemoglobin 15.5 G/DL (14.2-18.0) Hematocrit 44.4 % (42.0-52.0) Mean Corpuscular Volume 87 FL (80-99) Mean Corpuscular Hemoglobin 30.5 PG (27.0-31.0) Mean Corpuscular Hemoglobin Concent 35.0 G/DL (32.0-36.0) Red Cell Distribution Width 14.6 % (11.6-14.8) Platelet Count 89 K/UL (150-450) L Mean Platelet Volume 8.0 FL (6.5-10.1) Neutrophils (%) (Auto) % (45.0-75.0) Lymphocytes (%) (Auto) % (20.0-45.0) Monocytes (%) (Auto) % (1.0-10.0) Eosinophils (%) (Auto) % (0.0-3.0) Basophils (%) (Auto) % (0.0-2.0) Differential Total Cells Counted 100 Neutrophils % (Manual) 74 % (45-75) Lymphocytes % (Manual) 6 % (20-45) L Monocytes % (Manual) 2 % (1-10) Eosinophils % (Manual) 0 % (0-3) Basophils % (Manual) 0 % (0-2) Band Neutrophils 18 % (0-8) H Platelet Estimate Decreased L Platelet Morphology Normal Anisocytosis 1+ Sodium Level 142 MMOL/L (136-145) Potassium Level 4.4 MMOL/L (3.5-5.1) Chloride Level 111 MMOL/L (98-107) H Carbon Dioxide Level 15 MMOL/L (21-32) L Anion Gap 16 mmol/L (5-15) H Blood Urea Nitrogen 39 mg/dL (7-18) H Creatinine 1.7 MG/DL (0.55-1.30) H Estimat Glomerular Filtration Rate 38.9 mL/min (>60) Glucose Level 171 MG/DL (74-106) H Calcium Level 8.2 MG/DL (8.5-10.1) L Total Bilirubin 0.4 MG/DL (0.2-1.0) Aspartate Amino Transf (AST/SGOT) 52 U/L (15-37) H Alanine Aminotransferase (ALT/SGPT) 34 U/L (12-78) Alkaline Phosphatase 72 U/L (46-116) Troponin I 7.017 ng/mL (0.000-0.056) Pro-B-Type Natriuretic Peptide 38454 pg/mL (0-125) H Total Protein 6.7 G/DL (6.4-8.2) Albumin 3.0 G/DL (3.4-5.0) L Globulin 3.7 g/dL Albumin/Globulin Ratio 0.8 (1.0-2.7) L POC Whole Blood Glucose 161 MG/DL (74-106) H Test 03/18/20 17:31 POC Whole Blood Glucose 153 MG/DL (74-106) H Microbiology Date/Time Source Procedure Growth Status 03/17/20 22:12 Nasopharynx SARS-CoV-2 RdRp Gene Assay - Final Complete 03/17/20 19:55 Rectum Received Assessment/Plan Assessment/Plan Acute myocardial infarcton Respiratory failure Covid 19 PNA Chronic systolic and diastolic CHF Paroxysmal atrial arrhythmias Acute kidney injury Hypoxia Dehydration/hypovolemia Degenerative aortic valve disease with stenosis IVF Antiplatelet therapy Beta blockade Nitrates as tolerated by BP Anti-virals Full anticoagulation Steroids per ID Oxygen suppl Monitor volume status and renal function Joel Rowe MD Mar 18, 2020 23:36
[2020-03-19] VITALS: BP 109/63
[2020-03-19 04:00] VITALS: BP 115/67
[2020-03-19] MEDS: Piperacillin/Tazobactam 3.375 GM in NS 110 ML IVPB SCH ×3 (04:54→22:00)
[2020-03-19 05:45] LABS: HEMATOCRIT 36.8 % (42.0-52.0); HEMOGLOBIN 12.9 G/DL (14.2-18.0); MEAN CORPUSCULAR VOLUME 89 FL (80-99); PLATELET COUNT 85 K/UL (150-450); RED BLOOD COUNT 4.14 M/UL (4.70-6.10); WHITE BLOOD COUNT 11.5 K/UL (4.8-10.8)
[2020-03-19] MEDS: NovoLOG Insulin Flexpen SUBQ SCH ×3 (06:17→15:44)
[2020-03-19 06:48] LABS: ALANINE AMINOTRANSFERASE 23 U/L (12-78); ALBUMIN 2.3 G/DL (3.4-5.0); ALBUMIN/GLOBULIN RATIO 0.6 (1.0-2.7); ALKALINE PHOSPHATASE 54 U/L (46-116); ANION GAP 11 mmol/L (5-15); ASPARTATE AMINO TRANSFERASE 49 U/L (15-37); BILIRUBIN,TOTAL 0.5 MG/DL (0.2-1.0); BLOOD UREA NITROGEN 41 mg/dL (7-18); CALCIUM 8.2 MG/DL (8.5-10.1); CARBON DIOXIDE 20 MMOL/L (21-32); CHLORIDE 113 MMOL/L (98-107); CREATINE KINASE 180 U/L (26-308); CREATININE 1.7 MG/DL (0.55-1.30); FERRITIN 460 NG/ML (8-388); PHOSPHORUS 2.5 MG/DL (2.5-4.9); POTASSIUM 4.5 MMOL/L (3.5-5.1); SODIUM 144 MMOL/L (136-145)
[2020-03-19 08:00] VITALS: BP 125/69
[2020-03-19] MEDS: Enoxaparin 80mg Inj SUBQ SCH (08:55)
[2020-03-19] MEDS: Aspirin EC 81mg tab ORAL SCH (09:00)
[2020-03-19] MEDS: Exelon 1.5mg cap ORAL SCH ×2 (09:06→17:00)
[2020-03-19] MEDS: Sertraline 50mg tab ORAL SCH (09:06)
--- NOTE | 2020-03-19 10:50 | Pulmonology Progress Note ---
Subjective Allergies: Coded Allergies: No Known Allergies (Unverified , 03/17/20) Subjective off BiPAP on O2 4 L via NC more awake and alert fevers resolved ; leuk trending down troponin still high with small trend down-6.983 denies chest pain, SOB Objective Last 24 Hour Vital Signs Date Time Temp Pulse Resp B/P (MAP) Pulse Ox O2 Delivery O2 Flow Rate FiO2 03/19/20 09:06 82 119/63 03/19/20 08:00 Nasal Cannula 4.0 03/19/20 08:00 98.1 74 22 125/69 (87) 97 03/19/20 07:48 95 03/19/20 04:00 55 03/19/20 04:00 98.6 75 25 115/67 (83) 98 03/19/20 04:00 Nasal Cannula 4.0 03/19/20 03:26 50 93 03/19/20 00:02 Nasal Cannula 4.0 03/19/20 00:01 Nasal Cannula 4.0 Bi-pap 03/19/20 00:00 53 03/19/20 00:00 98.3 70 25 109/63 (78) 98 03/19/20 00:00 Bi-pap Bi-pap 03/18/20 23:26 98 Nasal Cannula 4.0 36 03/18/20 23:26 87 98 03/18/20 21:51 65 117/64 03/18/20 21:51 117/64 03/18/20 20:00 60 03/18/20 20:00 98.2 65 25 117/64 (81) 98 03/18/20 20:00 Bi-pap Bi-pap 03/18/20 20:00 100 03/18/20 19:54 98 Nasal Cannula 4.0 36 03/18/20 19:21 84 98 03/18/20 16:00 Bi-pap Bi-pap 03/18/20 16:00 61 03/18/20 16:00 100 03/18/20 16:00 99.0 60 25 129/73 (91) 98 03/18/20 15:20 66 38 97 50 03/18/20 12:00 Bi-pap Bi-pap 03/18/20 12:00 69 03/18/20 12:00 98.6 67 51 125/88 (100) 100 12/9/20 12:00 100 Intake and Output 03/18/20 03/19/20 19:00 07:00 Intake Total 50 ml Output Total 1100 ml Balance -1100 ml 50 ml Intake IV Total 50 ml Output Urine Total 1100 ml Objective General Appearance: alert, responsive no resp distress, Lines, tubes and drains: peripheral HEENT: normocephalic, atraumatic, anicteric, PERRL, O2 via NC Neck: supple Respiratory/Chest: few scattered rhonchi bilaterally, Cardiovascular/Chest: normal peripheral pulses, regular rhythm - tele SR with 1 st degreee AV block Abdomen: normal bowel sounds, non tender, soft Extremities: no calf tenderness, normal capillary refill, BL foot SYME procedure Skin Exam: warm/dry Neurologic: abnormal gait, awake, responsive Musculoskeletal: atrophy BLE Microbiology Date/Time Source Procedure Growth Status 03/17/20 22:12 Nasopharynx SARS-CoV-2 RdRp Gene Assay - Final Complete 03/17/20 20:14 Blood Blood Culture - Preliminary NO GROWTH AFTER 24 HOURS Resulted 03/17/20 20:00 Blood Blood Culture - Preliminary NO GROWTH AFTER 24 HOURS Resulted 03/17/20 19:55 Rectum Received 03/17/20 19:55 Urine,Clean Catch Urine Culture - Preliminary Gram Negative Akil Resulted Laboratory Tests 03/18/20 11:53: POC Whole Blood Glucose 161H 03/18/20 12:40: Arterial Blood pH 7.435, Arterial Blood Partial Pressure CO2 21.0*L, Arterial Blood Partial Pressure O2 302.5H, Arterial Blood HCO3 13.8*L, Arterial Blood Oxygen Saturation 99.1, Arterial Blood Base Excess -7.8L, Tj Test Positive 03/18/20 17:31: POC Whole Blood Glucose 153H 03/19/20 03:40: White Blood Count 11.5H, Red Blood Count 4.14L, Hemoglobin 12.9L, Hematocrit 36.8L, Mean Corpuscular Volume 89, Mean Corpuscular Hemoglobin 31.2H, Mean Corpuscular Hemoglobin Concent 35.2, Red Cell Distribution Width 14.0, Platelet Count 85L, Mean Platelet Volume 6.8, Neutrophils (%) (Auto) , Lymphocytes (%) (Auto) , Monocytes (%) (Auto) , Eosinophils (%) (Auto) , Basophils (%) (Auto) , Differential Total Cells Counted 100, Neutrophils % (Manual) 92H, Lymphocytes % (Manual) 4L, Monocytes % (Manual) 3, Eosinophils % (Manual) 1, Basophils % (Manual) 0, Band Neutrophils 0, Platelet Estimate DecreasedL, Platelet Morpho logy Normal, Red Blood Cell Morphology Normal, Sodium Level 144, Potassium Level 4.5, Chloride Level 113H, Carbon Dioxide Level 20L, Anion Gap 11, Blood Urea Nitrogen 41H, Creatinine 1.7H, Estimat Glomerular Filtration Rate 38.9, Glucose Level 108H, Calcium Level 8.2L, Phosphorus Level 2.5, Magnesium Level 1.9, Ferritin 460H, Total Bilirubin 0.5, Aspartate Amino Transf (AST/SGOT) 49H, Alanine Aminotransferase (ALT/SGPT) 23, Alkaline Phosphatase 54, Total Creatine Kinase 180, Troponin I 6.983H, C-Reactive Protein, Quantitative 27.1H, Total Pr otein 6.1L, Albumin 2.3L, Globulin 3.8, Albumin/Globulin Ratio 0.6L, Thyroid Stimulating Hormone (TSH) 0.601 03/19/20 06:04: POC Whole Blood Glucose 105 03/19/20 10:34: POC Whole Blood Glucose [Pending] Current Medications Medications (Trade) Dose Ordered Sig/Blanquita Route PRN Reason Start Time Stop Time Status Last Admin Dose Admin Acetaminophen (Tylenol) 650 mg Q4H PRN ORAL Mild Pain (Pain Scale 1-3) 03/17/20 20:45 04/16/20 20:44 Acetaminophen (Tylenol) 650 mg Q4H PRN ORAL Temp >100.5 03/17/20 20:45 04/16/20 20:44 Albuterol Sulfate (Proventil MDI) 2 puff Q4H PRN INH Shortness of Breath 03/18/20 11:15 06/16/20 11:14 Aspirin (Ecotrin) 81 mg DAILY ORAL 03/18/20 09:00 05/02/20 08:59 03/18/20 10:22 Atorvastatin Calcium (Lipitor) 80 mg BEDTIME ORAL 03/18/20 21:00 06/16/20 20:59 03/18/20 21:51 Clopidogrel Bisulfate (Plavix) 75 mg DAILY ORAL 03/18/20 09:00 04/17/20 08:59 03/18/20 10:23 Dexamethasone Sodium Phosphate (Decadron 4mg/ml vial) 6 mg DAILY IVP 03/18/20 11:00 03/27/20 09:01 03/19/20 09:05 Dextrose (Dextrose 50%) 25 ml Q30M PRN IV Hypoglycemia 03/18/20 11:00 06/16/20 10:59 Dextrose (Dextrose 50%) 50 ml Q30M PRN IV Hypoglycemia 03/18/20 11:00 06/16/20 10:59 Enoxaparin Sodium (Lovenox) 80 mg DAILY SUBQ 03/18/20 09:00 06/16/20 08:59 Famotidine (Pepcid) 20 mg BID ORAL 03/18/20 18:00 06/16/20 17:59 03/19/20 09:05 Gabapentin (Neurontin) 300 mg BID ORAL 03/18/20 09:00 04/17/20 08:59 03/19/20 09:09 Insulin Aspart (NovoLOG) BEFORE MEALS SUBQ 03/19/20 06:30 06/17/20 06:29 Isosorbide Mononitrate (Imdur) 30 mg QHS ORAL 03/18/20 21:00 04/17/20 20:59 03/18/20 21:51 Magnesium Hydroxide (Mom) 30 ml HSPRN PRN ORAL Constipation 03/17/20 20:45 04/16/20 20:44 Metoprolol Tartrate (Lopressor) 25 mg Q12HR ORAL 03/17/20 21:15 06/15/20 21:14 03/19/20 09:06 Nitroglycerin (Ntg) 0.4 mg Q5M X 3 DOSES PRN SL Prn Chest Pain 03/17/20 20:45 04/16/20 20:44 Ondansetron HCl (Zofran) 4 mg Q6H PRN IVP Nausea & Vomiting 03/17/20 20:45 04/16/20 20:44 Piperacillin Sod/ Tazobactam Sod 3.375 gm/Sodium Chloride 110 ml @ 27.5 mls/hr Q8HR IVPB 03/18/20 14:00 03/25/20 13:59 03/19/20 04:54 Rivastigmine Tartrate (Exelon) 1.5 mg TWICE A DAY ORAL 03/18/20 09:00 04/17/20 08:59 03/19/20 09:06 Sertraline HCl (Zoloft) 100 mg DAILY ORAL 03/18/20 09:00 04/17/20 08:59 03/19/20 09:06 Sodium Bicarbonate 100 ml/Dextrose 1,100 ml @ 50 mls/hr Q22H IV 03/18/20 21:00 04/17/20 20:59 03/18/20 21:51 Trazodone HCl (Desyrel) 50 mg QHS ORAL 03/17/20 21:00 04/16/20 20:59 03/18/20 21:53 Vancomycin HCl (Vanco pharmacy to dose) 1 ea DAILY PRN MISC Per rx protocol 03/18/20 14:00 04/17/20 13:59 Assessment/Plan Assessment/Plan ASSESSMENT Acute hypoxemic respiratory failure likely due to COVID pneumonia and probable NSTEMI COVID-19 pneumonia Elevated troponin , probably due to demand, Possible NSTEMI Lactic acidosis UTI , possible pyelo ( with history of prior pyelonephritis) Acute kidney injury on chronic kidney disease Hypertension with initial hypertensive urgency 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% Aortic stenosis PLAN OF CARE SDU droplet isolation off BiPAP O2 via NC, titrate to keep sat > 92% full code steroids no Remdesivir given renal failure ( ID recommedns only if not responsive to steroids) full a/c with Lovenox Proventil MDI prn abx - Zosyn fup with cx fup with inflammatory markers to access risk for cytokine storm CRP up to 27 this am , ferritin up to 460 CXR this am/ image not uploaded yet Venous Duplex BLE ECHO noted with rEF 40% , evidence of cardio on board DAPT with ASA and Plavix, BB, nitrate serial troponin full a/c with Lovenox GI prophylaxis monitor volumes per cardio->no diuresis for now gentle IV hydration monitor volumes, avoid nephrotoxics supportive care case discussed and evaluated by supervising physician Suzette Crabtree NP Mar 19, 2020 10:50
--- NOTE | 2020-03-19 11:55 | General Progress Note ---
Subjective Constitutional: Reports: weakness HEENT: Reports: no symptoms Cardiovascular: Reports: no symptoms Respiratory: Reports: cough, shortness of breath Gastrointestinal/Abdominal: Reports: no symptoms Genitourinary: Reports: incontinence Neurologic/Psychiatric: Reports: pre-existing deficit, tremors Endocrine: Reports: no symptoms Hematologic/Lymphatic: Reports: no symptoms Allergies: Coded Allergies: No Known Allergies (Unverified , 03/17/20) Objective Last 24 Hour Vital Signs Date Time Temp Pulse Resp B/P (MAP) Pulse Ox O2 Delivery O2 Flow Rate FiO2 03/19/20 09:06 82 119/63 03/19/20 08:00 Nasal Cannula 4.0 03/19/20 08:00 98.1 74 22 125/69 (87) 97 03/19/20 07:48 95 03/19/20 04:00 55 03/19/20 04:00 98.6 75 25 115/67 (83) 98 03/19/20 04:00 Nasal Cannula 4.0 03/19/20 03:26 50 93 03/19/20 00:02 Nasal Cannula 4.0 03/19/20 00:01 Nasal Cannula 4.0 Bi-pap 03/19/20 00:00 53 03/19/20 00:00 98.3 70 25 109/63 (78) 98 03/19/20 00:00 Bi-pap Bi-pap 03/18/20 23:26 98 Nasal Cannula 4.0 36 03/18/20 23:26 87 98 03/18/20 21:51 65 117/64 03/18/20 21:51 117/64 03/18/20 20:00 60 03/18/20 20:00 98.2 65 25 117/64 (81) 98 03/18/20 20:00 Bi-pap Bi-pap 03/18/20 20:00 100 03/18/20 19:54 98 Nasal Cannula 4.0 36 03/18/20 19:21 84 98 03/18/20 16:00 Bi-pap Bi-pap 03/18/20 16:00 61 03/18/20 16:00 100 03/18/20 16:00 99.0 60 25 129/73 (91) 98 03/18/20 15:20 66 38 97 50 03/18/20 12:00 Bi-pap Bi-pap 03/18/20 12:00 69 03/18/20 12:00 98.6 67 51 125/88 (100) 100 03/18/20 12:00 100 Intake and Output 03/18/20 03/19/20 19:00 07:00 Intake Total 50 ml Output Total 1100 ml Balance -1100 ml 50 ml Intake IV Total 50 ml Output Urine Total 1100 ml Laboratory Tests 03/18/20 11:53: POC Whole Blood Glucose 161H 03/18/20 12:40: Arterial Blood pH 7.435, Arterial Blood Partial Pressure CO2 21.0*L, Arterial Blood Partial Pressure O2 302.5H, Arterial Blood HCO3 13.8*L, Arterial Blood Oxygen Saturation 99.1, Arterial Blood Base Excess -7.8L, Tj Test Positive 03/18/20 17:31: POC Whole Blood Glucose 153H 03/19/20 03:40: White Blood Count 11.5H, Red Blood Count 4.14L, Hemoglobin 12.9L, Hematocrit 36.8L, Mean Corpuscular Volume 89, Mean Corpuscular Hemoglobin 31.2H, Mean Corpuscular Hemoglobin Concent 35.2, Red Cell Distribution Width 14.0, Platelet Count 85L, Mean Platelet Volume 6.8, Neutrophils (%) (Auto) , Lymphocytes (%) (Auto) , Monocytes (%) (Auto) , Eosinophils (%) (Auto) , Basophils (%) (Auto) , Differential Total Cells Counted 100, Neutrophils % (Manual) 92H, Lymphocytes % (Manual) 4L, Monocytes % (Manual) 3, Eosinophils % (Manual) 1, Basophils % (Manual) 0, Band Neutrophils 0, Platelet Estimate DecreasedL, Platelet Morpholo gy Normal, Red Blood Cell Morphology Normal, Sodium Level 144, Potassium Level 4.5, Chloride Level 113H, Carbon Dioxide Level 20L, Anion Gap 11, Blood Urea Nitrogen 41H, Creatinine 1.7H, Estimat Glomerular Filtration Rate 38.9, Glucose Level 108H, Calcium Level 8.2L, Phosphorus Level 2.5, Magnesium Level 1.9, Ferritin 460H, Total Bilirubin 0.5, Aspartate Amino Transf (AST/SGOT) 49H, Alanine Aminotransferase (ALT/SGPT) 23, Alkaline Phosphatase 54, Total Creatine Kinase 180, Troponin I 6.983H, C-Reactive Protein, Quantitative 27.1H, Total Protein 6.1L, Albumin 2.3L, Globulin 3.8, Albumin/Globulin Ratio 0.6L, Thyroid S timulating Hormone (TSH) 0.601 03/19/20 06:04: POC Whole Blood Glucose 105 03/19/20 10:34: POC Whole Blood Glucose [Pending] Height (Feet): 5 Height (Inches): 9.00 Weight (Pounds): 190 General Appearance: alert, mild distress EENT: normal ENT inspection Neck: normal alignment, supple Cardiovascular: regular rhythm Respiratory/Chest: lungs clear Abdomen: non tender, soft Edema: no edema noted Arm (L), no edema noted Arm (R), no edema noted Leg (L), no edema noted Leg (R), no edema noted Pedal (L), no edema noted Pedal (R), no edema noted Generalized 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 grossly normal, motor weakness, disoriented Assessment/Plan Problem List: (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 SNOMED: 492719772 (2) CHF (congestive heart failure) ICD Codes: I50.9 - Heart failure, unspecified SNOMED: 48347008 (3) Dehydration ICD Codes: E86.0 - Dehydration SNOMED: 39914670 (4) Respiratory failure ICD Codes: J96.90 - Respiratory failure, unspecified, unspecified whether with hypoxia or hypercapnia SNOMED: 419454748 (5) TUCKER (acute kidney injury) ICD Codes: N17.9 - Acute kidney failure, unspecified SNOMED: 2234380, 12760883 (6) Metabolic acidosis ICD Codes: E87.2 - Acidosis SNOMED: 20020610 (7) Aortic stenosis ICD Codes: I35.0 - Nonrheumatic aortic (valve) stenosis SNOMED: 35741653 (8) Sepsis ICD Codes: A41.9 - Sepsis, unspecified organism SNOMED: 40540894 (9) Non-ST elevated myocardial infarction ICD Codes: I21.4 - Non-ST elevation (NSTEMI) myocardial infarction SNOMED: 33388610 (10) Pyelonephritis ICD Codes: N12 - Tubulo-interstitial nephritis, not specified as acute or chronic SNOMED: 80049573 (11) Elevated troponin ICD Codes: R77.8 - Other specified abnormalities of plasma proteins SNOMED: 351257839, 960354454, 123625429 (12) COVID-19 ICD Codes: U07.1 - COVID-19 SNOMED: 654326322 (13) UTI (urinary tract infection) ICD Codes: N39.0 - Urinary tract infection, site not specified SNOMED: 97642173, 536120394, 234101704 Qualifiers: Qualified Codes: N39.0 - Urinary tract infection, site not specified Assessment/Plan: high trop, now off bipap, less distress, stop bicarb, cont rx for sepsis and covid Mike Alexander MD Mar 19, 2020 11:55
[2020-03-19 12:00] VITALS: BP 115/63
[2020-03-19] MEDS ORDERED: Vancomycin 1gm in D5W 275ml IVPB SCH (15:00)
[2020-03-19 16:00] VITALS: BP 118/78
--- NOTE | 2020-03-19 16:28 | Diagnostic Imaging Report ---
Indication: Reason For Exam: SOB Technique: Single AP view of the chest. Comparison: Chest radiograph dated 05/30/2019 Findings: The cardiomediastinal silhouette is unchanged in appearance. Interval development of patchy right midlung and right basilar airspace opacity. Unchanged streaky left basilar airspace opacity. Persistent diffuse peribronchial thickening. No pneumothorax or increasing pleural effusion. IMPRESSION: New patchy right midlung and right base airspace process is concerning for pneumonia for
--- NOTE | 2020-03-19 16:54 | Diagnostic Imaging Report ---
ABDOMINAL ULTRASOUND - COMPLETE INDICATION: Abdominal pain. TECHNIQUE: Multiplanar ultrasound examination of the abdomen with greyscale and doppler imaging. COMPARISON: None FINDINGS: Liver: The right liver measures at the upper limits of normal and demonstrates normal echogenicity. Left liver cannot be adequately assessed due to overlying bowel gas. Gallbladder: The gallbladder is normal. No stones are visualized. The wall is not thickened. Common bile duct: Nonvisualized. Pancreas: Incompletely visualized due to overlying bowel gas. Kidneys: Left kidney is atrophic. Right kidney demonstrates increased cortical echogenicity. Spleen: The spleen is normal in size and echogenicity. IMPRESSION: Limited examination due to overlying bowel gas. Within these limitations: Increased echogenicity of the kidneys, which can be seen with medical renal disease. Atrophic left kidney.
[2020-03-19] MEDS ORDERED: ATORVASTATIN CA10 MG ORAL (17:32)
[2020-03-19] MEDS ORDERED: ZOLOFT100 MG ORAL (17:32)
[2020-03-19 20:00] VITALS: BP 118/78
[2020-03-19] MEDS: Atorvastatin 80mg tab ORAL SCH (22:00)
[2020-03-19] MEDS: TraZODone 50mg tab ORAL SCH (22:00)
[2020-03-20] VITALS: BP 148/86
--- NOTE | 2020-03-20 00:10 | Cardiology Progress Note ---
Subjective DATE OF SERVICE: Mar 19, 2020 Condition remains critical - prognosis guarded Troponin peaked above 7; remains elevated. Monitor sinus with PAC's 2D Echo: EF 40% with moderate aortic stenosis (1.2 cm2) and moderate mitral and tricuspid regurg. Patient remains with baseline confusion. Objective Last 24 Hour Vital Signs Date Time Temp Pulse Resp B/P (MAP) Pulse Ox O2 Delivery O2 Flow Rate FiO2 03/19/20 22:00 90 132/75 03/19/20 19:03 98 Nasal Cannula 4.0 36 03/19/20 18:37 78 03/19/20 18:11 82 03/19/20 16:00 98.4 72 22 118/78 (91) 98 03/19/20 16:00 Nasal Cannula 4.0 03/19/20 15:28 100 03/19/20 12:00 98.0 69 22 115/63 (80) 98 03/19/20 12:00 Nasal Cannula 4.0 03/19/20 11:41 84 03/19/20 09:06 82 119/63 03/19/20 08:55 76 97 03/19/20 08:55 97 Nasal Cannula 4.0 36 03/19/20 08:00 Nasal Cannula 4.0 03/19/20 08:00 98.1 74 22 125/69 (87) 97 03/19/20 07:48 95 03/19/20 04:00 55 03/19/20 04:00 98.6 75 25 115/67 (83) 98 03/19/20 04:00 Nasal Cannula 4.0 03/19/20 03:26 50 93 ROS: no change from 03/17/20 HEENT: normal ENT inspection RHYTHM: NSR, ST LUNGS: bilat. rhonchi and rales CARDIAC: normal rate, regular rhythm, normal S1 and S2, normal peripheral pulses, systolic murmur - 1/6 systolic ej murmur at base ABDOMEN: normal bowel sounds, non tender, no organomegaly EXTREMITIES: non-tender Laboratory Tests Test 03/19/20 03:40 03/19/20 06:04 03/19/20 10:34 03/19/20 12:25 White Blood Count 11.5 K/UL (4.8-10.8) H Red Blood Count 4.14 M/UL (4.70-6.10) L Hemoglobin 12.9 G/DL (14.2-18.0) L Hematocrit 36.8 % (42.0-52.0) L Mean Corpuscular Volume 89 FL (80-99) Mean Corpuscular Hemoglobin 31.2 PG (27.0-31.0) H Mean Corpuscular Hemoglobin Concent 35.2 G/DL (32.0-36.0) Red Cell Distribution Width 14.0 % (11.6-14.8) Platelet Count 85 K/UL (150-450) L Mean Platelet Volume 6.8 FL (6.5-10.1) Neutrophils (%) (Auto) % (45.0-75.0) Lymphocytes (%) (Auto) % (20.0-45.0) Monocytes (%) (Auto) % (1.0-10.0) Eosinophils (%) (Auto) % (0.0-3.0) Basophils (%) (Auto) % (0.0-2.0) Differential Total Cells Counted 100 Neutrophils % (Manual) 92 % (45-75) H Lymphocytes % (Manual) 4 % (20-45) L Monocytes % (Manual) 3 % (1-10) Eosinophils % (Manual) 1 % (0-3) Basophils % (Manual) 0 % (0-2) Band Neutrophils 0 % (0-8) Platelet Estimate Decreased L Platelet Morphology Normal Red Blood Cell Morphology Normal Sodium Level 144 MMOL/L (136-145) Potassium Level 4.5 MMOL/L (3.5-5.1) Chloride Level 113 MMOL/L (98-107) H Carbon Dioxide Level 20 MMOL/L (21-32) L Anion Gap 11 mmol/L (5-15) Blood Urea Nitrogen 41 mg/dL (7-18) H Creatinine 1.7 MG/DL (0.55-1.30) H Estimat Glomerular Filtration Rate 38.9 mL/min (>60) Glucose Level 108 MG/DL (74-106) H Calcium Level 8.2 MG/DL (8.5-10.1) L Phosphorus Level 2.5 MG/DL (2.5-4.9) Magnesium Level 1.9 MG/DL (1.8-2.4) Ferritin 460 NG/ML (8-388) H Total Bilirubin 0.5 MG/DL (0.2-1.0) Aspartate Amino Transf (AST/SGOT) 49 U/L (15-37) H Alanine Aminotransferase (ALT/SGPT) 23 U/L (12-78) Alkaline Phosphatase 54 U/L (46-116) Total Creatine Kinase 180 U/L (26-308) Troponin I 6.983 ng/mL (0.000-0.056) C-Reactive Protein, Quantitative 27.1 mg/dL (0.00-0.90) H Total Protein 6.1 G/DL (6.4-8.2) L Albumin 2.3 G/DL (3.4-5.0) L Globulin 3.8 g/dL Albumin/Globulin Ratio 0.6 (1.0-2.7) L Thyroid Stimulating Hormone (TSH) 0.601 uiU/mL (0.358-3.740) POC Whole Blood Glucose 105 MG/DL (74-106) Pending Random Vancomycin Level 8.8 ug/mL Test 03/19/20 15:41 POC Whole Blood Glucose Pending Microbiology Date/Time Source Procedure Growth Status 03/17/20 22:12 Nasopharynx SARS-CoV-2 RdRp Gene Assay - Final Complete 03/17/20 20:14 Blood Blood Culture - Preliminary NO GROWTH AFTER 24 HOURS Resulted 03/17/20 20:00 Blood Blood Culture - Preliminary NO GROWTH AFTER 24 HOURS Resulted 03/17/20 19:55 Rectum Received 03/17/20 19:55 Urine,Clean Catch Urine Culture - Preliminary Gram Negative Akil Resulted Assessment/Plan Assessment/Plan Acute myocardial infarcton Respiratory failure Covid 19 PNA Ac/chronic systolic and diastolic CHF Paroxysmal atrial arrhythmias Acute kidney injury Hypoxia Dehydration/hypovolemia Degenerative aortic valve disease with moderate stenosis IVF Antiplatelet therapy Beta blockade Topical nitrates as tolerated by BP Anti-virals per ID Full anticoagulation Steroids per ID Oxygen suppl Monitor volume status and renal function; diuresis as needed Joel Rowe MD Mar 20, 2020 00:10
--- NOTE | 2020-03-20 00:15 | Infectious Diseases Prog Note ---
Assessment/Plan Assessment/Plan A) 1) gram neg uti, sepsis, covid-19 virus infection, ? aspiration pna/hcap vs cap, hypoxia, leukocytosis, hx fevers 2) TUCKER 3) pmh noted 4) allergies - nkda P) 1) zosyn, vancomycin, dexamethasone 2) use of remdesivir limited with TUCKER - will monitor patient on steroids and give if no improvement 3) monitor for hypoxia, labs and chest x-ray 4) f/u on cultures 5) will f/u Subjective Constitutional: Denies: fever HEENT: Reports: congestion - less Respiratory: Reports: shortness of breath - less Cardiovascular: Denies: chest pain Gastrointestinal/Abdominal: Denies: nausea, vomiting, diarrhea Allergies: Coded Allergies: No Known Allergies (Unverified , 03/17/20) Objective Last 24 Hour Vital Signs Date Time Temp Pulse Resp B/P (MAP) Pulse Ox O2 Delivery O2 Flow Rate FiO2 03/19/20 22:00 90 132/75 03/19/20 19:03 98 Nasal Cannula 4.0 36 03/19/20 18:37 78 03/19/20 18:11 82 03/19/20 16:00 98.4 72 22 118/78 (91) 98 03/19/20 16:00 Nasal Cannula 4.0 03/19/20 15:28 100 03/19/20 12:00 98.0 69 22 115/63 (80) 98 03/19/20 12:00 Nasal Cannula 4.0 03/19/20 11:41 84 03/19/20 09:06 82 119/63 03/19/20 08:55 76 97 03/19/20 08:55 97 Nasal Cannula 4.0 36 03/19/20 08:00 Nasal Cannula 4.0 03/19/20 08:00 98.1 74 22 125/69 (87) 97 03/19/20 07:48 95 03/19/20 04:00 55 03/19/20 04:00 98.6 75 25 115/67 (83) 98 03/19/20 04:00 Nasal Cannula 4.0 03/19/20 03:26 50 93 Height (Feet): 5 Height (Inches): 9.00 Weight (Pounds): 190 General Appearance: no acute distress HEENT: normocephalic, atraumatic, anicteric Respiratory/Chest: crackles/rales, rhonchi - bilaterally Cardiovascular: normal rate, regular rhythm Abdomen: normal bowel sounds, soft, non tender, no organomegaly Microbiology Date/Time Source Procedure Growth Status 03/17/20 22:12 Nasopharynx SARS-CoV-2 RdRp Gene Assay - Final Complete 03/17/20 20:14 Blood Blood Culture - Preliminary NO GROWTH AFTER 24 HOURS Resulted 03/17/20 20:00 Blood Blood Culture - Preliminary NO GROWTH AFTER 24 HOURS Resulted 03/17/20 19:55 Rectum Received 03/17/20 19:55 Urine,Clean Catch Urine Culture - Preliminary Gram Negative Akil Resulted Laboratory Tests Test 03/19/20 03:40 03/19/20 06:04 03/19/20 10:34 03/19/20 12:25 White Blood Count 11.5 K/UL (4.8-10.8) H Red Blood Count 4.14 M/UL (4.70-6.10) L Hemoglobin 12.9 G/DL (14.2-18.0) L Hematocrit 36.8 % (42.0-52.0) L Mean Corpuscular Volume 89 FL (80-99) Mean Corpuscular Hemoglobin 31.2 PG (27.0-31.0) H Mean Corpuscular Hemoglobin Concent 35.2 G/DL (32.0-36.0) Red Cell Distribution Width 14.0 % (11.6-14.8) Platelet Count 85 K/UL (150-450) L Mean Platelet Volume 6.8 FL (6.5-10.1) Neutrophils (%) (Auto) % (45.0-75.0) Lymphocytes (%) (Auto) % (20.0-45.0) Monocytes (%) (Auto) % (1.0-10.0) Eosinophils (%) (Auto) % (0.0-3.0) Basophils (%) (Auto) % (0.0-2.0) Differential Total Cells Counted 100 Neutrophils % (Manual) 92 % (45-75) H Lymphocytes % (Manual) 4 % (20-45) L Monocytes % (Manual) 3 % (1-10) Eosinophils % (Manual) 1 % (0-3) Basophils % (Manual) 0 % (0-2) Band Neutrophils 0 % (0-8) Platelet Estimate Decreased L Platelet Morphology Normal Red Blood Cell Morphology Normal Sodium Level 144 MMOL/L (136-145) Potassium Level 4.5 MMOL/L (3.5-5.1) Chloride Level 113 MMOL/L (98-107) H Carbon Dioxide Level 20 MMOL/L (21-32) L Anion Gap 11 mmol/L (5-15) Blood Urea Nitrogen 41 mg/dL (7-18) H Creatinine 1.7 MG/DL (0.55-1.30) H Estimat Glomerular Filtration Rate 38.9 mL/min (>60) Glucose Level 108 MG/DL (74-106) H Calcium Level 8.2 MG/DL (8.5-10.1) L Phosphorus Level 2.5 MG/DL (2.5-4.9) Magnesium Level 1.9 MG/DL (1.8-2.4) Ferritin 460 NG/ML (8-388) H Total Bilirubin 0.5 MG/DL (0.2-1.0) Aspartate Amino Transf (AST/SGOT) 49 U/L (15-37) H Alanine Aminotransferase (ALT/SGPT) 23 U/L (12-78) Alkaline Phosphatase 54 U/L (46-116) Total Creatine Kinase 180 U/L (26-308) Troponin I 6.983 ng/mL (0.000-0.056) C-Reactive Protein, Quantitative 27.1 mg/dL (0.00-0.90) H Total Protein 6.1 G/DL (6.4-8.2) L Albumin 2.3 G/DL (3.4-5.0) L Globulin 3.8 g/dL Albumin/Globulin Ratio 0.6 (1.0-2.7) L Thyroid Stimulating Hormone (TSH) 0.601 uiU/mL (0.358-3.740) POC Whole Blood Glucose 105 MG/DL (74-106) Pending Random Vancomycin Level 8.8 ug/mL Test 03/19/20 15:41 POC Whole Blood Glucose Pending Current Medications Medications (Trade) Dose Ordered Sig/Blanquita Route PRN Reason Start Time Stop Time Status Last Admin Dose Admin Acetaminophen (Tylenol) 650 mg Q4H PRN ORAL Mild Pain (Pain Scale 1-3) 03/17/20 20:45 04/16/20 20:44 Acetaminophen (Tylenol) 650 mg Q4H PRN ORAL Temp >100.5 03/17/20 20:45 04/16/20 20:44 Albuterol Sulfate (Proventil MDI) 2 puff Q4H PRN INH Shortness of Breath 03/18/20 11:15 06/16/20 11:14 Aspirin (Ecotrin) 81 mg DAILY ORAL 03/18/20 09:00 05/02/20 08:59 03/18/20 10:22 Atorvastatin Calcium (Lipitor) 80 mg BEDTIME ORAL 03/18/20 21:00 06/16/20 20:59 03/19/20 22:00 Clopidogrel Bisulfate (Plavix) 75 mg DAILY ORAL 03/18/20 09:00 04/17/20 08:59 03/18/20 10:23 Dexamethasone Sodium Phosphate (Decadron 4mg/ml vial) 6 mg DAILY IVP 03/18/20 11:00 03/27/20 09:01 03/19/20 09:05 Dextrose (Dextrose 50%) 25 ml Q30M PRN IV Hypoglycemia 03/18/20 11:00 06/16/20 10:59 Dextrose (Dextrose 50%) 50 ml Q30M PRN IV Hypoglycemia 03/18/20 11:00 06/16/20 10:59 Enoxaparin Sodium (Lovenox) 80 mg DAILY SUBQ 03/18/20 09:00 06/16/20 08:59 Famotidine (Pepcid) 20 mg BID ORAL 03/18/20 18:00 06/16/20 17:59 03/19/20 17:00 Gabapentin (Neurontin) 300 mg BID ORAL 03/18/20 09:00 04/17/20 08:59 03/19/20 17:00 Insulin Aspart (NovoLOG) BEFORE MEALS SUBQ 03/19/20 06:30 06/17/20 06:29 Magnesium Hydroxide (Mom) 30 ml HSPRN PRN ORAL Constipation 03/17/20 20:45 04/16/20 20:44 Metoprolol Tartrate (Lopressor) 25 mg Q12HR ORAL 03/17/20 21:15 06/15/20 21:14 03/19/20 22:00 Nitroglycerin (Ntg) 0.4 mg Q5M X 3 DOSES PRN SL Prn Chest Pain 03/17/20 20:45 04/16/20 20:44 Ondansetron HCl (Zofran) 4 mg Q6H PRN IVP Nausea & Vomiting 03/17/20 20:45 04/16/20 20:44 Piperacillin Sod/ Tazobactam Sod 3.375 gm/Sodium Chloride 110 ml @ 27.5 mls/hr Q8HR IVPB 03/18/20 14:00 03/25/20 13:59 03/19/20 22:00 Rivastigmine Tartrate (Exelon) 1.5 mg TWICE A DAY ORAL 03/18/20 09:00 04/17/20 08:59 03/19/20 17:00 Sertraline HCl (Zoloft) 100 mg DAILY ORAL 03/18/20 09:00 04/17/20 08:59 03/19/20 09:06 Sodium Chloride 1,000 ml @ 30 mls/hr Q24H IV 03/19/20 12:00 04/18/20 11:59 03/19/20 12:19 Trazodone HCl (Desyrel) 50 mg QHS ORAL 03/17/20 21:00 04/16/20 20:59 03/19/20 22:00 [facility] 1 [facility]a DAILY PRN MISC Per rx protocol 03/18/20 14:00 04/17/20 13:59 Bety Steen MD Mar 20, 2020 00:15
[2020-03-20 04:00] VITALS: BP 128/83
[2020-03-20 06:14] LABS: CALCIUM 8.2 MG/DL (8.5-10.1); CREATININE 1.6 MG/DL (0.55-1.30); POTASSIUM 3.9 MMOL/L (3.5-5.1)
[2020-03-20] MEDS: Piperacillin/Tazobactam 3.375 GM in NS 110 ML IVPB SCH ×3 (06:23→21:53)
[2020-03-20] MEDS: NovoLOG Insulin Flexpen SUBQ SCH ×3 (06:23→16:30)
[2020-03-20 06:24] LABS: HEMATOCRIT 40.8 % (42.0-52.0); HEMOGLOBIN 14.3 G/DL (14.2-18.0); MEAN CORPUSCULAR VOLUME 89 FL (80-99); PLATELET COUNT 96 K/UL (150-450); RED BLOOD COUNT 4.59 M/UL (4.70-6.10); RED CELL DISTRIBUTION WIDTH 13.8 % (11.6-14.8); WHITE BLOOD COUNT 14.8 K/UL (4.8-10.8)
[2020-03-20 08:00] VITALS: BP 130/82
[2020-03-20] MEDS: Aspirin EC 81mg tab ORAL SCH (08:40)
[2020-03-20] MEDS: Enoxaparin 80mg Inj SUBQ SCH (08:41)
[2020-03-20] MEDS ORDERED: 1/2 NS 1000ml IV ONE (08:43)
[2020-03-20] MEDS ORDERED: Vancomycin 1gm/D5W 275ml IVPB ONE ×2 (09:00)
[2020-03-20] MEDS: Exelon 1.5mg cap ORAL SCH ×2 (09:11→18:00)
[2020-03-20] MEDS: Sertraline 50mg tab ORAL SCH (09:12)
--- NOTE | 2020-03-20 09:43 | Pulmonology Progress Note ---
Subjective Constitutional: Denies: fever Gastrointestinal/Abdominal: Denies: nausea, vomiting, diarrhea Allergies: Coded Allergies: No Known Allergies (Unverified , 03/17/20) Subjective off BiPAP on O2 4 L via NC, sat stable more awake and alert fevers resolved ; leuk with trend up this am troponin trending down denies chest pain, SOB Objective Last 24 Hour Vital Signs Date Time Temp Pulse Resp B/P (MAP) Pulse Ox O2 Delivery O2 Flow Rate FiO2 03/20/20 09:12 81 128/83 03/20/20 08:00 101 03/20/20 04:00 81 03/20/20 04:00 Nasal Cannula 4.0 03/20/20 04:00 98.3 74 22 128/83 (98) 98 03/20/20 00:00 98.9 74 22 148/86 (106) 98 03/20/20 00:00 94 03/20/20 00:00 Nasal Cannula 4.0 03/19/20 22:00 90 132/75 03/19/20 20:00 98.4 72 22 118/78 (91) 98 03/19/20 20:00 78 03/19/20 20:00 Nasal Cannula 4.0 03/19/20 19:03 98 Nasal Cannula 4.0 36 03/19/20 18:37 78 03/19/20 18:11 82 03/19/20 16:00 98.4 72 22 118/78 (91) 98 03/19/20 16:00 Nasal Cannula 4.0 03/19/20 15:28 100 03/19/20 12:00 98.0 69 22 115/63 (80) 98 03/19/20 12:00 Nasal Cannula 4.0 03/19/20 11:41 84 Intake and Output 03/19/20 03/20/20 19:00 07:00 Intake Total 712.708 ml Output Total 525 ml Balance 187.708 ml Intake IV Total 712.708 ml Output Urine Total 525 ml Objective General Appearance: alert, responsive no resp distress, Lines, tubes and drains: peripheral HEENT: normocephalic, atraumatic, anicteric, PERRL, O2 via NC Neck: supple Respiratory/Chest: few isolated rhonchi on the R Cardiovascular/Chest: normal peripheral pulses, irregular - tele a fib Abdomen: normal bowel sounds, non tender, soft Extremities: no calf tenderness, normal capillary refill, BL foot SYME procedure Skin Exam: warm/dry Neurologic: abnormal gait, awake, responsive Musculoskeletal: atrophy BLE Microbiology Date/Time Source Procedure Growth Status 03/17/20 22:12 Nasopharynx SARS-CoV-2 RdRp Gene Assay - Final Complete 03/17/20 20:14 Blood Blood Culture - Preliminary NO GROWTH AFTER 48 HOURS Resulted 03/17/20 20:00 Blood Blood Culture - Preliminary NO GROWTH AFTER 48 HOURS Resulted 03/17/20 19:55 Rectum Received 03/17/20 19:55 Urine,Clean Catch Urine Culture - Final Escherichia Coli - Esbl Complete 03/17/20 19:55 Nasal Nares MRSA Culture - Final NO METHICILLIN RESISTANT STAPH AUREUS... Complete Laboratory Tests 03/19/20 10:34: POC Whole Blood Glucose [Pending] 03/19/20 12:25: Random Vancomycin Level 8.8 03/19/20 15:41: POC Whole Blood Glucose [Pending] 03/20/20 04:30: Random Vancomycin Level 15.7, White Blood Count 14.8H, Red Blood Count 4.59L, Hemoglobin 14.3, Hematocrit 40.8L, Mean Corpuscular Volume 89, Mean Corpuscular Hemoglobin 31.3H, Mean Corpuscular Hemoglobin Concent 35.1, Red Cell Distribution Width 13.8, Platelet Count 96L, Mean Platelet Volume 8.1, Neutrophils (%) (Auto) , Lymphocytes (%) (Auto) , Monocytes (%) (Auto) , Eosinophils (%) (Auto) , Basophils (%) (Auto) , Neutrophils % (Manual) [Pending], Lymphocytes % (Manual) [Pending], Platelet Estimate [Pending], Platelet Morphology [Pending], Sodium Level 144, Potassium Level 3.9, Chloride Level 111H, Carbon Dioxide Level 17L, Anion Gap 16H, Blood Urea Nitrogen 38H, Creatinine 1.6H, Estimat Glomerular Filtration Rate 41.7, Glucose Level 98, Hua cium Level 8.2L, Troponin I 3.282H 03/20/20 05:20: POC Whole Blood Glucose 86 Current Medications Medications (Trade) Dose Ordered Sig/Blanquita Route PRN Reason Start Time Stop Time Status Last Admin Dose Admin Acetaminophen (Tylenol) 650 mg Q4H PRN ORAL Mild Pain (Pain Scale 1-3) 03/17/20 20:45 04/16/20 20:44 Acetaminophen (Tylenol) 650 mg Q4H PRN ORAL Temp >100.5 03/17/20 20:45 04/16/20 20:44 Albuterol Sulfate (Proventil MDI) 2 puff Q4H PRN INH Shortness of Breath 03/18/20 11:15 06/16/20 11:14 Aspirin (Ecotrin) 81 mg DAILY ORAL 03/18/20 09:00 05/02/20 08:59 03/18/20 10:22 Atorvastatin Calcium (Lipitor) 80 mg BEDTIME ORAL 03/18/20 21:00 06/16/20 20:59 03/19/20 22:00 Clopidogrel Bisulfate (Plavix) 75 mg DAILY ORAL 03/18/20 09:00 04/17/20 08:59 03/18/20 10:23 Dexamethasone Sodium Phosphate (Decadron 4mg/ml vial) 6 mg DAILY IVP 03/18/20 11:00 03/27/20 09:01 03/20/20 09:12 Dextrose (Dextrose 50%) 25 ml Q30M PRN IV Hypoglycemia 03/18/20 11:00 06/16/20 10:59 Dextrose (Dextrose 50%) 50 ml Q30M PRN IV Hypoglycemia 03/18/20 11:00 06/16/20 10:59 Enoxaparin Sodium (Lovenox) 80 mg DAILY SUBQ 03/18/20 09:00 06/16/20 08:59 Famotidine (Pepcid) 20 mg BID ORAL 03/18/20 18:00 06/16/20 17:59 03/20/20 09:12 Gabapentin (Neurontin) 300 mg BID ORAL 03/18/20 09:00 04/17/20 08:59 03/20/20 09:12 Insulin Aspart (NovoLOG) BEFORE MEALS SUBQ 03/19/20 06:30 06/17/20 06:29 Magnesium Hydroxide (Mom) 30 ml HSPRN PRN ORAL Constipation 03/17/20 20:45 04/16/20 20:44 Metoprolol Tartrate (Lopressor) 25 mg Q12HR ORAL 03/17/20 21:15 06/15/20 21:14 03/20/20 09:12 Nitroglycerin (Ntg) 0.4 mg Q5M X 3 DOSES PRN SL Prn Chest Pain 03/17/20 20:45 04/16/20 20:44 Ondansetron HCl (Zofran) 4 mg Q6H PRN IVP Nausea & Vomiting 03/17/20 20:45 04/16/20 20:44 Piperacillin Sod/ Tazobactam Sod 3.375 gm/Sodium Chloride 110 ml @ 27.5 mls/hr Q8HR IVPB 03/18/20 14:00 03/25/20 13:59 03/20/20 06:23 Rivastigmine Tartrate (Exelon) 1.5 mg TWICE A DAY ORAL 03/18/20 09:00 04/17/20 08:59 03/20/20 09:11 Sertraline HCl (Zoloft) 100 mg DAILY ORAL 03/18/20 09:00 04/17/20 08:59 03/20/20 09:12 Sodium Chloride 1,000 ml @ 30 mls/hr Q24H IV 03/19/20 12:00 04/18/20 11:59 03/19/20 12:19 Trazodone HCl (Desyrel) 50 mg QHS ORAL 03/17/20 21:00 04/16/20 20:59 03/19/20 22:00 Vancomycin HCl ([facility] pharmacy to dose) 1 ea DAILY PRN MISC Per rx protocol 03/18/20 14:00 04/17/20 13:59 Vancomycin HCl 1 gm/Dextrose 275 ml @ 183.708 mls/hr ONCE ONCE IVPB 03/20/20 09:00 03/20/20 10:29 03/20/20 09:12 Assessment/Plan Assessment/Plan ASSESSMENT Acute hypoxemic respiratory failure likely due to COVID pneumonia and probable NSTEMI COVID-19 pneumonia Possible HCAP Elevated troponin , probably due to demand, Possible NSTEMI PAF Lactic acidosis UTI , possible pyelo ( with history of prior pyelonephritis) Acute kidney injury on chronic kidney disease Hypertension with initial hypertensive urgency 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% Aortic stenosis PLAN OF CARE SDU droplet isolation off BiPAP O2 via NC, titrate to keep sat > 92% full code steroids no Remdesivir given renal failure ( ID recommedns only if not responsive to steroids) full a/c with Latesha Almaguer MDI prn abx -per ID BCX NGTD UCX E coli ESBL fup with inflammatory markers to access risk for cytokine storm CRP up to 27 on 03/19 , ferritin up to 460 on 03/19 Venous Duplex BLE NGT CXR 03/19 with new patchy right midlung and right base airspace process concerning for pneumonia SCX if able ECHO noted with rEF 40% , evidence of cardio on board DAPT with ASA and Plavix, BB, nitrate serial troponin-trending down full a/c with Lovenox GI prophylaxis monitor volumes per cardio->no diuresis for now gentle IV hydration monitor volumes, avoid nephrotoxics creat trending down, abd US with echogenic kidneys, c/w probable medical renal disease supportive care case discussed and evaluated by supervising physician Suzette Crabtree NP Mar 20, 2020 09:43 See Grace MD Mar 20, 2020 13:29
--- NOTE | 2020-03-20 11:15 | General Progress Note ---
Subjective Constitutional: Reports: weakness HEENT: Reports: no symptoms Cardiovascular: Reports: no symptoms Respiratory: Reports: cough, shortness of breath Gastrointestinal/Abdominal: Reports: no symptoms Genitourinary: Reports: incontinence Neurologic/Psychiatric: Reports: pre-existing deficit Endocrine: Reports: no symptoms Hematologic/Lymphatic: Reports: no symptoms Allergies: Coded Allergies: No Known Allergies (Unverified , 03/17/20) Objective Last 24 Hour Vital Signs Date Time Temp Pulse Resp B/P (MAP) Pulse Ox O2 Delivery O2 Flow Rate FiO2 03/20/20 10:04 93 Non-Rebreather 15.0 100 03/20/20 09:12 81 128/83 03/20/20 08:00 101 03/20/20 08:00 Nasal Cannula 4.0 03/20/20 08:00 97.9 85 20 130/82 (98) 98 03/20/20 04:00 81 03/20/20 04:00 Nasal Cannula 4.0 03/20/20 04:00 98.3 74 22 128/83 (98) 98 03/20/20 00:00 98.9 74 22 148/86 (106) 98 03/20/20 00:00 94 03/20/20 00:00 Nasal Cannula 4.0 03/19/20 22:00 90 132/75 03/19/20 20:00 98.4 72 22 118/78 (91) 98 03/19/20 20:00 78 03/19/20 20:00 Nasal Cannula 4.0 03/19/20 19:03 98 Nasal Cannula 4.0 36 03/19/20 18:37 78 03/19/20 18:11 82 03/19/20 16:00 98.4 72 22 118/78 (91) 98 03/19/20 16:00 Nasal Cannula 4.0 03/19/20 15:28 100 03/19/20 12:00 98.0 69 22 115/63 (80) 98 03/19/20 12:00 Nasal Cannula 4.0 03/19/20 11:41 84 Intake and Output 03/19/20 03/20/20 19:00 07:00 Intake Total 712.708 ml Output Total 525 ml Balance 187.708 ml Intake IV Total 712.708 ml Output Urine Total 525 ml Laboratory Tests 03/19/20 12:25: Random Vancomycin Level 8.8 03/19/20 15:41: POC Whole Blood Glucose [Pending] 03/20/20 04:30: Random Vancomycin Level 15.7, White Blood Count 14.8H, Red Blood Count 4.59L, He moglobin 14.3, Hematocrit 40.8L, Mean Corpuscular Volume 89, Mean Corpuscular Hemoglobin 31.3H, Mean Corpuscular Hemoglobin Concent 35.1, Red Cell Distribution Width 13.8, Platelet Count 96L, Mean Platelet Volume 8.1, Neutrophils (%) (Auto) , Lymphocytes (%) (Auto) , Monocytes (%) (Auto) , Eosinophils (%) (Auto) , Basophils (%) (Auto) , Differential Total Cells Counted 100, Neutrophils % (Manual) 95H, Lymphocytes % (Manual) 3L, Monocytes % (Manual) 2, Eosinophils % (Manual) 0, Basophils % (Manual) 0, Band Neutrophils 0, Platelet Estimate DecreasedL, Platelet Morphology Normal, Red Blood Cell Morphology Normal, Anisocytosis , Sodium Level 144, Potassium Level 3.9, Chloride Level 111H, Carbon Dioxide Level 17L, Anion Gap 16H, Blood Urea Nitrogen 38H, Creatinine 1.6H, Estimat Glomerular Filtration Rate 41.7, Glucose Level 98, Calcium Level 8.2L, Troponin I 3.282H 03/20/20 05:20: POC Whole Blood Glucose 86 Height (Feet): 5 Height (Inches): 9.00 Weight (Pounds): 190 General Appearance: mild distress EENT: normal ENT inspection Neck: normal alignment Cardiovascular: regular rhythm Respiratory/Chest: lungs clear Abdomen: soft, no organomegaly Edema: no edema noted Arm (L), no edema noted Arm (R), no edema noted Leg (L), no edema noted Leg (R), no edema noted Pedal (L), no edema noted Pedal (R), no edema noted Generalized Assessment/Plan Problem List: (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 SNOMED: 316647146 (2) CHF (congestive heart failure) ICD Codes: I50.9 - Heart failure, unspecified SNOMED: 71593107 (3) Dehydration ICD Codes: E86.0 - Dehydration SNOMED: 66797229 (4) Respiratory failure ICD Codes: J96.90 - Respiratory failure, unspecified, unspecified whether with hypoxia or hypercapnia SNOMED: 451850386 (5) TUCKER (acute kidney injury) ICD Codes: N17.9 - Acute kidney failure, unspecified SNOMED: 9952109, 76969819 (6) Metabolic acidosis ICD Codes: E87.2 - Acidosis SNOMED: 09062230 (7) Aortic stenosis ICD Codes: I35.0 - Nonrheumatic aortic (valve) stenosis SNOMED: 83636546 (8) Sepsis ICD Codes: A41.9 - Sepsis, unspecified organism SNOMED: 29359675 (9) Non-ST elevated myocardial infarction ICD Codes: I21.4 - Non-ST elevation (NSTEMI) myocardial infarction SNOMED: 18608272 (10) Pyelonephritis ICD Codes: N12 - Tubulo-interstitial nephritis, not specified as acute or chronic SNOMED: 67797706 (11) Elevated troponin ICD Codes: R77.8 - Other specified abnormalities of plasma proteins SNOMED: 084806227, 566353861, 802936478 (12) COVID-19 ICD Codes: U07.1 - COVID-19 SNOMED: 664762899 (13) UTI (urinary tract infection) ICD Codes: N39.0 - Urinary tract infection, site not specified SNOMED: 92174661, 377614121, 120210276 Qualifiers: Qualified Codes: N39.0 - Urinary tract infection, site not specified Assessment/Plan: high trop, now off bipap, but desat and nonrebreather, infiltrates on cxr, cont rx for sepsis and covid and acute Mi, possible change to meropenam for esbl uti Mike Alexander MD Mar 20, 2020 11:15
[2020-03-20 12:00] VITALS: BP 128/92
[2020-03-20] MEDS ORDERED: Metoprolol Tartrate 10 MG in D5W 55 ML IVPB SCH (12:06)
[2020-03-20 15:44] VITALS: BP 115/90
[2020-03-20 20:00] VITALS: BP 129/81
[2020-03-20] MEDS: Atorvastatin 80mg tab ORAL SCH (21:01)
[2020-03-20] MEDS: TraZODone 50mg tab ORAL SCH (21:01)
[2020-03-20] MEDS: Metoprolol Tartrate 50mg tab ORAL SCH (21:01)
[2020-03-21] VITALS (7 sets, daily range): BP systolic 102–155; BP diastolic 66–97
--- NOTE | 2020-03-21 00:23 | Cardiology Progress Note ---
Subjective DATE OF SERVICE: Mar 31, 2020 Condition remains critical - prognosis guarded Troponin peaked above 7; remains elevated above 3. Monitor sinus with PAC's - converted to atrial fib/flutter 2D Echo: EF 40% with moderate aortic stenosis (1.2 cm2) and moderate mitral and tricuspid regurg. Patient remains with baseline confusion. Objective Last 24 Hour Vital Signs Date Time Temp Pulse Resp B/P (MAP) Pulse Ox O2 Delivery O2 Flow Rate FiO2 03/20/20 21:01 75 129/81 03/20/20 20:00 97.4 67 23 129/81 (97) 96 03/20/20 20:00 75 03/20/20 20:00 Non-Rebreather 15.0 03/20/20 15:48 72 03/20/20 15:45 Non-Rebreather 15.0 03/20/20 15:44 98.2 67 23 115/90 (98) 96 03/20/20 12:19 105 128/92 03/20/20 12:00 Nasal Cannula 4.0 03/20/20 12:00 97.9 105 22 128/92 (104) 90 03/20/20 12:00 83 03/20/20 10:04 93 Non-Rebreather 15.0 100 03/20/20 09:12 81 128/83 03/20/20 08:00 101 03/20/20 08:00 Nasal Cannula 4.0 03/20/20 08:00 97.9 85 20 130/82 (98) 98 03/20/20 04:00 81 03/20/20 04:00 Nasal Cannula 4.0 03/20/20 04:00 98.3 74 22 128/83 (98) 98 ROS: no change from 03/17/20 HEENT: normal ENT inspection RHYTHM: NSR, ST LUNGS: bilat. rhonchi and rales CARDIAC: normal rate, normal S1 and S2, normal peripheral pulses, irregularly irregular, systolic murmur - 1/6 systolic murmur at the base ABDOMEN: normal bowel sounds, non tender, no organomegaly EXTREMITIES: non-tender Laboratory Tests Test 03/20/20 04:30 03/20/20 05:20 03/20/20 12:03 03/20/20 17:32 White Blood Count 14.8 K/UL (4.8-10.8) H Red Blood Count 4.59 M/UL (4.70-6.10) L Hemoglobin 14.3 G/DL (14.2-18.0) Hematocrit 40.8 % (42.0-52.0) L Mean Corpuscular Volume 89 FL (80-99) Mean Corpuscular Hemoglobin 31.3 PG (27.0-31.0) H Mean Corpuscular Hemoglobin Concent 35.1 G/DL (32.0-36.0) Red Cell Distribution Width 13.8 % (11.6-14.8) Platelet Count 96 K/UL (150-450) L Mean Platelet Volume 8.1 FL (6.5-10.1) Neutrophils (%) (Auto) % (45.0-75.0) Lymphocytes (%) (Auto) % (20.0-45.0) Monocytes (%) (Auto) % (1.0-10.0) Eosinophils (%) (Auto) % (0.0-3.0) Basophils (%) (Auto) % (0.0-2.0) Differential Total Cells Counted 100 Neutrophils % (Manual) 95 % (45-75) H Lymphocytes % (Manual) 3 % (20-45) L Monocytes % (Manual) 2 % (1-10) Eosinophils % (Manual) 0 % (0-3) Basophils % (Manual) 0 % (0-2) Band Neutrophils 0 % (0-8) Platelet Estimate Decreased L Platelet Morphology Normal Red Blood Cell Morphology Normal Anisocytosis Sodium Level 144 MMOL/L (136-145) Potassium Level 3.9 MMOL/L (3.5-5.1) Chloride Level 111 MMOL/L (98-107) H Carbon Dioxide Level 17 MMOL/L (21-32) L Anion Gap 16 mmol/L (5-15) H Blood Urea Nitrogen 38 mg/dL (7-18) H Creatinine 1.6 MG/DL (0.55-1.30) H Estimat Glomerular Filtration Rate 41.7 mL/min (>60) Glucose Level 98 MG/DL (74-106) Calcium Level 8.2 MG/DL (8.5-10.1) L Troponin I 3.282 ng/mL (0.000-0.056) Random Vancomycin Level 15.7 ug/mL POC Whole Blood Glucose 86 MG/DL (74-106) 159 MG/DL (74-106) H 119 MG/DL (74-106) H Assessment/Plan Assessment/Plan Acute myocardial infarcton Respiratory failure Covid 19 PNA Ac/chronic systolic and diastolic CHF Paroxysmal atrial arrhythmias Acute kidney injury Hypoxia Dehydration/hypovolemia 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
[2020-03-21] MEDS: Piperacillin/Tazobactam 3.375 GM in NS 110 ML IVPB SCH ×2 (05:21→13:10)
[2020-03-21] MEDS: NovoLOG Insulin Flexpen SUBQ SCH ×3 (06:30→16:30)
[2020-03-21 08:26] LABS: HEMATOCRIT 37.5 % (42.0-52.0); HEMOGLOBIN 13.6 G/DL (14.2-18.0); MEAN CORPUSCULAR VOLUME 86 FL (80-99); PLATELET COUNT 120 K/UL (150-450); RED BLOOD COUNT 4.35 M/UL (4.70-6.10); RED CELL DISTRIBUTION WIDTH 15.3 % (11.6-14.8); WHITE BLOOD COUNT 11.4 K/UL (4.8-10.8)
--- NOTE | 2020-03-21 08:52 | Pulmonology Progress Note ---
Subjective Constitutional: Denies: fever Gastrointestinal/Abdominal: Denies: nausea, vomiting, diarrhea Allergies: Coded Allergies: No Known Allergies (Unverified , 03/17/20) Subjective changed to NRM yesterday afternoon, apparently desaturated currently on NRNM no signs of distress labs and CXR pending fevers resolved ; denies chest pain, SOB Objective Last 24 Hour Vital Signs Date Time Temp Pulse Resp B/P (MAP) Pulse Ox O2 Delivery O2 Flow Rate FiO2 03/21/20 07:47 96 Non-Rebreather 15.0 100 03/21/20 04:00 97.0 56 23 102/66 (78) 96 03/21/20 04:00 60 03/21/20 04:00 Non-Rebreather 15.0 03/21/20 00:00 Non-Rebreather 15.0 03/21/20 00:00 97.3 60 23 108/73 (85) 96 03/20/20 23:44 90 03/20/20 21:01 75 129/81 03/20/20 20:13 96 Non-Rebreather 15.0 100 03/20/20 20:00 97.4 67 23 129/81 (97) 96 03/20/20 20:00 75 03/20/20 20:00 Non-Rebreather 15.0 03/20/20 15:48 72 03/20/20 15:45 Non-Rebreather 15.0 03/20/20 15:44 98.2 67 23 115/90 (98) 96 03/20/20 12:19 105 128/92 03/20/20 12:00 Nasal Cannula 4.0 03/20/20 12:00 97.9 105 22 128/92 (104) 90 03/20/20 12:00 83 03/20/20 10:04 93 Non-Rebreather 15.0 100 03/20/20 09:12 81 128/83 Intake and Output 03/20/20 03/21/20 19:00 07:00 Intake Total 137.5 ml Output Total 650 ml Balance -650 ml 137.5 ml Intake IV Total 137.5 ml Output Urine Total 650 ml Objective General Appearance: alert, responsive no resp distress, Lines, tubes and drains: peripheral HEENT: normocephalic, atraumatic, anicteric, PERRL, O2 via NRM Neck: supple Respiratory/Chest: few isolated rhonchi on the R Cardiovascular/Chest: normal peripheral pulses, irregular - tele a flutter controlled rate Abdomen: normal bowel sounds, non tender, soft Extremities: no calf tenderness, normal capillary refill, BL foot SYME procedure Skin Exam: warm/dry Neurologic: abnormal gait, awake, responsive Musculoskeletal: atrophy BLE Laboratory Tests 03/20/20 12:03: POC Whole Blood Glucose 159H 03/20/20 17:32: POC Whole Blood Glucose 119H 03/21/20 06:44: POC Whole Blood Glucose 103 03/21/20 07:50: White Blood Count [Pending], Red Blood Count [Pending], Hemoglobin [Pending], Hematocrit [Pending], Mean Corpuscular Volume [Pending], Mean Corpuscular Hemoglobin [Pending], Mean Corpuscular Hemoglobin Concent [Pending], Red Cell Distribution Width [Pending], Platelet Count [Pending], Mean Platelet Volume [Pending], Neutrophils (%) (Auto) [Pending], Lymphocytes (%) (Auto) [Pending], Monocytes (%) (Auto) [Pending], Eosinophils (%) (Auto) [Pending], Basophils (%) (Auto) [Pending], Sodium Level [Pending], Potassium Level [Pending], Chloride Level [Pending], Carbon Dioxide Level [Pending], Blood Urea Nitrogen [Pending], Creatinine [Pending], Estimat Glomerular Filtration Rate [Pending], Glucose Level [Pending], Calcium Level [Pending], Magnesium Level [Pending], Ferritin [Pending], Troponin I [Pending], C-Reactive Protein, Quantitative [Pending], Pro-B-Type Natriuretic Peptide [Pending] Current Medications Medications (Trade) Dose Ordered Sig/Blanquita Route PRN Reason Start Time Stop Time Status Last Admin Dose Admin Acetaminophen (Tylenol) 650 mg Q4H PRN ORAL Mild Pain (Pain Scale 1-3) 03/17/20 20:45 04/16/20 20:44 Acetaminophen (Tylenol) 650 mg Q4H PRN ORAL Temp >100.5 03/17/20 20:45 04/16/20 20:44 Albuterol Sulfate (Proventil MDI) 2 puff Q4H PRN INH Shortness of Breath 03/18/20 11:15 06/16/20 11:14 Aspirin (Ecotrin) 81 mg DAILY ORAL 03/18/20 09:00 05/02/20 08:59 03/18/20 10:22 Atorvastatin Calcium (Lipitor) 80 mg BEDTIME ORAL 03/18/20 21:00 06/16/20 20:59 03/20/20 21:01 Clopidogrel Bisulfate (Plavix) 75 mg DAILY ORAL 03/18/20 09:00 04/17/20 08:59 03/18/20 10:23 Dexamethasone Sodium Phosphate (Decadron 4mg/ml vial) 6 mg DAILY IVP 03/18/20 11:00 03/27/20 09:01 03/20/20 09:12 Dextrose (Dextrose 50%) 25 ml Q30M PRN IV Hypoglycemia 03/18/20 11:00 06/16/20 10:59 Dextrose (Dextrose 50%) 50 ml Q30M PRN IV Hypoglycemia 03/18/20 11:00 06/16/20 10:59 Enoxaparin Sodium (Lovenox) 80 mg DAILY SUBQ 03/18/20 09:00 06/16/20 08:59 Famotidine (Pepcid) 20 mg BID ORAL 03/18/20 18:00 06/16/20 17:59 03/20/20 18:00 Gabapentin (Neurontin) 300 mg BID ORAL 03/18/20 09:00 04/17/20 08:59 03/20/20 18:00 Insulin Aspart (NovoLOG) BEFORE MEALS SUBQ 03/19/20 06:30 06/17/20 06:29 Magnesium Hydroxide (Mom) 30 ml HSPRN PRN ORAL Constipation 03/17/20 20:45 04/16/20 20:44 Metoprolol Tartrate (Lopressor) 50 mg Q12HR ORAL 03/20/20 21:00 06/18/20 20:59 03/20/20 21:01 Nitroglycerin (Ntg) 0.4 mg Q5M X 3 DOSES PRN SL Prn Chest Pain 03/17/20 20:45 04/16/20 20:44 Ondansetron HCl (Zofran) 4 mg Q6H PRN IVP Nausea & Vomiting 03/17/20 20:45 04/16/20 20:44 Piperacillin Sod/ Tazobactam Sod 3.375 gm/Sodium Chloride 110 ml @ 27.5 mls/hr Q8HR IVPB 03/18/20 14:00 03/25/20 13:59 03/21/20 05:21 Rivastigmine Tartrate (Exelon) 1.5 mg TWICE A DAY ORAL 03/18/20 09:00 04/17/20 08:59 03/20/20 18:00 Sertraline HCl (Zoloft) 100 mg DAILY ORAL 03/18/20 09:00 04/17/20 08:59 03/20/20 09:12 Trazodone HCl (Desyrel) 50 mg QHS ORAL 03/17/20 21:00 04/16/20 20:59 03/20/20 21:01 Vancomycin HCl (Vanco pharmacy to dose) 1 ea DAILY PRN MISC Per rx protocol 03/18/20 14:00 04/17/20 13:59 Assessment/Plan Assessment/Plan ASSESSMENT Acute hypoxemic respiratory failure likely due to COVID pneumonia and probable NSTEMI COVID-19 pneumonia Possible HCAP Elevated troponin , probably due to demand, Possible NSTEMI PAF Lactic acidosis UTI , possible pyelo ( with history of prior pyelonephritis) Acute kidney injury on chronic kidney disease Hypertension with initial hypertensive urgency 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% Aortic stenosis PLAN OF CARE SDU droplet isolation off BiPAP CXR and ABG stat titrate O2 to keep sat > 92% full code steroids no Remdesivir given renal failure ( ID recommends only if not responsive to steroids) full a/c with Lovenox, Proventil MDI prn abx -per ID BCX NGTD UCX E coli ESBL fup with inflammatory markers to access risk for cytokine storm CRP up to 27 on 03/19 , ferritin up to 460 on 03/19 Venous Duplex BLE NGT CXR 03/19 with new patchy right midlung and right base airspace process concerning for pneumonia SCX if able ECHO noted with rEF 40% , evidence of cardio on board DAPT with ASA and Plavix, BB, nitrate serial troponin-trending down, this am pending full a/c with Lovenox GI prophylaxis monitor volumes per cardio->no diuresis for now gentle IV hydration monitor volumes, avoid nephrotoxics creat trending down, abd US with echogenic kidneys, c/w probable medical renal disease supportive care case discussed and evaluated by supervising physician Suzette Crabtree NP Mar 21, 2020 08:52 See Grace MD Mar 21, 2020 13:52
[2020-03-21] MEDS: Enoxaparin 80mg Inj SUBQ SCH (09:00)
[2020-03-21] MEDS: Aspirin EC 81mg tab ORAL SCH (09:00)
[2020-03-21] MEDS: Metoprolol Tartrate 50mg tab ORAL SCH ×2 (09:00→21:00)
[2020-03-21] MEDS: Exelon 1.5mg cap ORAL SCH ×2 (09:00→09:27)
[2020-03-21 09:07] LABS: CALCIUM 8.3 MG/DL (8.5-10.1); CREATININE 1.6 MG/DL (0.55-1.30); POTASSIUM 4.1 MMOL/L (3.5-5.1)
[2020-03-21] MEDS: Sertraline 50mg tab ORAL SCH (09:27)
--- NOTE | 2020-03-21 09:55 | Diagnostic Imaging Report ---
EXAM: XR Chest, 1 View CLINICAL HISTORY: SOB TECHNIQUE: Frontal view of the chest. COMPARISON: Chest radiograph March 19, 2020 FINDINGS/IMPRESSION: Extensive bilateral airspace consolidations, which now preferentially involves the right lung field to a severe degree. This has significantly worsened when compared to March 19, 2020. Follow chest radiograph recommended. Trace bilateral pleural effusions, which are mildly worsening. No pneumothorax. Cardiomegaly. Calcified aorta.
--- NOTE | 2020-03-21 11:19 | General Progress Note ---
Subjective Constitutional: Reports: weakness HEENT: Reports: no symptoms Cardiovascular: Reports: no symptoms Respiratory: Reports: cough, shortness of breath Gastrointestinal/Abdominal: Reports: no symptoms Genitourinary: Reports: incontinence Neurologic/Psychiatric: Reports: pre-existing deficit Endocrine: Reports: no symptoms Hematologic/Lymphatic: Reports: no symptoms Allergies: Coded Allergies: No Known Allergies (Unverified , 03/17/20) Objective Last 24 Hour Vital Signs Date Time Temp Pulse Resp B/P (MAP) Pulse Ox O2 Delivery O2 Flow Rate FiO2 03/21/20 09:00 55 145/97 03/21/20 08:00 97.7 55 23 145/97 (113) 96 03/21/20 08:00 Non-Rebreather 15.0 03/21/20 08:00 56 03/21/20 07:47 96 Non-Rebreather 15.0 100 03/21/20 04:00 97.0 56 23 102/66 (78) 96 03/21/20 04:00 60 03/21/20 04:00 Non-Rebreather 15.0 03/21/20 00:00 Non-Rebreather 15.0 03/21/20 00:00 97.3 60 23 108/73 (85) 96 03/20/20 23:44 90 03/20/20 21:01 75 129/81 03/20/20 20:13 96 Non-Rebreather 15.0 100 03/20/20 20:00 97.4 67 23 129/81 (97) 96 03/20/20 20:00 75 03/20/20 20:00 Non-Rebreather 15.0 03/20/20 15:48 72 03/20/20 15:45 Non-Rebreather 15.0 03/20/20 15:44 98.2 67 23 115/90 (98) 96 03/20/20 12:19 105 128/92 03/20/20 12:00 Nasal Cannula 4.0 03/20/20 12:00 97.9 105 22 128/92 (104) 90 03/20/20 12:00 83 Intake and Output 03/20/20 03/21/20 19:00 07:00 Intake Total 137.5 ml Output Total 650 ml Balance -650 ml 137.5 ml Intake IV Total 137.5 ml Output Urine Total 650 ml Laboratory Tests 03/20/20 12:03: POC Whole Blood Glucose 159H 03/20/20 17:32: POC Whole Blood Glucose 119H 03/21/20 06:44: POC Whole Blood Glucose 103 03/21/20 07:50: White Blood Count 11.4H, Red Blood Count 4.35L, Hemoglobin 13.6L, Hematocrit 37.5L, Mean Corpuscular Volume 86, Mean Corpuscular Hemoglobin 31.2H, Mean Corpuscular Hemoglobin Concent 36.2H, Red Cell Distribution Width 15.3H, Carl telet Count 120L, Mean Platelet Volume 8.2, Neutrophils (%) (Auto) , Lymphocytes (%) (Auto) , Monocytes (%) (Auto) , Eosinophils (%) (Auto) , Basophils (%) (Auto) , Differential Total Cells Counted 100, Neutrophils % (Manual) 92H, Lymphocytes % (Manual) 4L, Monocytes % (Manual) 4, Eosinophils % (Manual) 0, Basophils % (Manual) 0, Band Neutrophils 0, Platelet Estimate DecreasedL, Platelet Morphology Normal, Anisocytosis 1+, Sodium Level 147H, Potassium Level 4.1, Chloride Level 116H, Carbon Dioxide Level 22, Anion Gap 9, Blood Urea Nitrogen 41H, Creatinine 1.6H, Estimat Glomerular Filtration Rate 41.7, Glucose Level 113H, Calcium Level 8.3L, Magnesium Level 2.4, Ferritin 1004H, Troponin I 4.263H, C-Reactive Protein, Quantitative 26.1H, Pro-B-Type Natriuretic Peptide > 67484A 03/21/20 09:06: Arterial Blood pH 7.412, Arterial Blood Partial Pressure CO2 30.2L, Arterial Blood Partial Pressure O2 86.5, Arterial Blood HCO3 18.8L, Arterial Blood Oxygen Saturation 96.4, Arterial Blood Base Excess -4.5L, Tj Test Positive Height (Feet): 5 Height (Inches): 9.00 Weight (Pounds): 190 General Appearance: confused, mild distress EENT: normal ENT inspection Neck: normal alignment Cardiovascular: regular rhythm Respiratory/Chest: accessory muscle use Abdomen: non tender, soft Edema: no edema noted Arm (L), no edema noted Arm (R), no edema noted Leg (L), no edema noted Leg (R), no edema noted Pedal (L), no edema noted Pedal (R), no edema noted Generalized 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 grossly normal Assessment/Plan Problem List: (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 SNOMED: 137890324 (2) CHF (congestive heart failure) ICD Codes: I50.9 - Heart failure, unspecified SNOMED: 78619708 (3) Dehydration ICD Codes: E86.0 - Dehydration SNOMED: 66283105 (4) Respiratory failure ICD Codes: J96.90 - Respiratory failure, unspecified, unspecified whether with hypoxia or hypercapnia SNOMED: 397134945 (5) TUCKER (acute kidney injury) ICD Codes: N17.9 - Acute kidney failure, unspecified SNOMED: 4219664, 40798334 (6) Metabolic acidosis ICD Codes: E87.2 - Acidosis SNOMED: 58820800 (7) Aortic stenosis ICD Codes: I35.0 - Nonrheumatic aortic (valve) stenosis SNOMED: 17411096 (8) Sepsis ICD Codes: A41.9 - Sepsis, unspecified organism SNOMED: 37456730 (9) Non-ST elevated myocardial infarction ICD Codes: I21.4 - Non-ST elevation (NSTEMI) myocardial infarction SNOMED: 08954018 (10) Pyelonephritis ICD Codes: N12 - Tubulo-interstitial nephritis, not specified as acute or chronic SNOMED: 78475785 (11) Elevated troponin ICD Codes: R77.8 - Other specified abnormalities of plasma proteins SNOMED: 435543564, 588500398, 459178946 (12) COVID-19 ICD Codes: U07.1 - COVID-19 SNOMED: 407514093 (13) UTI (urinary tract infection) ICD Codes: N39.0 - Urinary tract infection, site not specified SNOMED: 64519488, 054109015, 260185033 Qualifiers: Qualified Codes: N39.0 - Urinary tract infection, site not specified Assessment/Plan: high trop, now off bipap, but desat and nonrebreather, infiltrates on cxr, cont rx for sepsis and covid and acute Mi, possible change to meropenam for esbl uti Mike Alexander MD Mar 21, 2020 11:19
[2020-03-21] MEDS ORDERED: NS 275ml ONE (15:40)
[2020-03-21] MEDS ORDERED: Tubing IV Secondary IV ONE (15:40)
[2020-03-21] MEDS ORDERED: 1/2 NS 1000ml IV ONE (15:40)
[2020-03-21] MEDS ORDERED: Varibar Thin Liquid powder 148gm MC PRN (15:45)
[2020-03-21] MEDS ORDERED: Varibar Honey 250ml MC PRN (15:45)
[2020-03-21] MEDS ORDERED: Varibar Nectar 240ml MC PRN (15:45)
[2020-03-21] MEDS ORDERED: Varibar Pudding 230ml MC PRN (15:45)
[2020-03-21] MEDS: Gabapentin 300 MG/6 ML Soln ORAL SCH (17:22)
[2020-03-21] MEDS: Atorvastatin 80mg tab ORAL SCH (20:59)
[2020-03-21] MEDS: Meropenem 1gm/NS 55ml IVPB SCH ×2 (21:00)
[2020-03-21] MEDS: TraZODone 50mg tab ORAL SCH (21:00)
--- NOTE | 2020-03-21 22:27 | Infectious Diseases Prog Note ---
Assessment/Plan Assessment/Plan A) 1) esbl e.coli uti, sepsis, covid-19 virus infection, ? aspiration pna/hcap vs cap, hypoxia, leukocytosis, hx fevers 2) TUCKER, anemia, aortic stenosis, HTN, HLD, dementia, cri, nstemi, chf, cad 3) allergies - nkda, sh-neg, mar noted, JN-cul-joaqidhvjoaz, d/w RN 4) notes and records noted 5) orders reviewed P) 1) meropenem, vancomycin, dexamethasone 2) will consider remdesivir since clinically worsening 3) monitor for hypoxia, labs and chest x-ray 4) f/u on cultures 5) clinically worse 6) please see orders Subjective Constitutional: Reports: fatigue, other - on high flow O2; Denies: fever HEENT: Reports: congestion Respiratory: Reports: shortness of breath Cardiovascular: Denies: chest pain Gastrointestinal/Abdominal: Denies: nausea, vomiting, diarrhea Genitourinary: Reports: other - + castellanos Neurologic: Reports: weakness Psychiatric: Reports: other - NA Skin: Denies: rash Hematologic: Denies: bleeding Musculoskeletal: Reports: other - NA Allergies: Coded Allergies: No Known Allergies (Unverified , 03/17/20) Objective Last 24 Hour Vital Signs Date Time Temp Pulse Resp B/P (MAP) Pulse Ox O2 Delivery O2 Flow Rate FiO2 03/21/20 21:00 68 144/87 03/21/20 20:00 Non-Rebreather 15.0 03/21/20 20:00 97.7 68 22 144/87 (106) 95 03/21/20 20:00 57 03/21/20 16:00 Non-Rebreather 15.0 03/21/20 16:00 63 03/21/20 16:00 97.8 65 20 155/96 (115) 95 03/21/20 12:00 68 03/21/20 12:00 97.8 59 23 143/73 (96) 95 03/21/20 12:00 Non-Rebreather 15.0 03/21/20 09:00 55 145/97 03/21/20 08:00 97.7 55 23 145/97 (113) 96 03/21/20 08:00 Non-Rebreather 15.0 03/21/20 08:00 56 03/21/20 07:47 96 Non-Rebreather 15.0 100 03/21/20 04:00 97.0 56 23 102/66 (78) 96 03/21/20 04:00 60 03/21/20 04:00 Non-Rebreather 15.0 03/21/20 00:00 Non-Rebreather 15.0 03/21/20 00:00 97.3 60 23 108/73 (85) 96 03/20/20 23:44 90 Height (Feet): 5 Height (Inches): 9.00 Weight (Pounds): 190 General Appearance: other - sob, on high flow O2 - 15 liters HEENT: normocephalic, atraumatic, anicteric Respiratory/Chest: crackles/rales, rhonchi - bilaterally Cardiovascular: normal rate, regular rhythm, no gallop/murmur, no JVD Abdomen: normal bowel sounds, soft, non tender, no organomegaly, non distended Genitourinary: other - no castellanos Extremities: no cyanosis Skin: no rash Neurologic/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 This has significantly worsened when compared to March 19, 2020. Follow chest radiograph recommended. Trace bilateral pleural effusions, which are mildly worsening. No pneumothorax. Cardiomegaly. Calcified aorta. Microbiology Date/Time Source Procedure Growth Status 03/17/20 22:12 Nasopharynx SARS-CoV-2 RdRp Gene Assay - Final Complete 03/17/20 20:14 Blood Blood Culture - Preliminary NO GROWTH AFTER 72 HOURS Resulted 03/17/20 19:55 Rectum VRE Culture - Final NO VANCOMYCIN RESISTANT ENTEROCOCCUS ... Complete 03/17/20 19:55 Urine,Clean Catch Urine Culture - Final Escherichia Coli - Esbl Complete Laboratory Tests Test 03/21/20 06:44 03/21/20 07:50 03/21/20 09:06 POC Whole Blood Glucose 103 MG/DL (74-106) White Blood Count 11.4 K/UL (4.8-10.8) H Red Blood Count 4.35 M/UL (4.70-6.10) L Hemoglobin 13.6 G/DL (14.2-18.0) L Hematocrit 37.5 % (42.0-52.0) L Mean Corpuscular Volume 86 FL (80-99) Mean Corpuscular Hemoglobin 31.2 PG (27.0-31.0) H Mean Corpuscular Hemoglobin Concent 36.2 G/DL (32.0-36.0) H Red Cell Distribution Width 15.3 % (11.6-14.8) H Platelet Count 120 K/UL (150-450) L Mean Platelet Volume 8.2 FL (6.5-10.1) Neutrophils (%) (Auto) % (45.0-75.0) Lymphocytes (%) (Auto) % (20.0-45.0) Monocytes (%) (Auto) % (1.0-10.0) Eosinophils (%) (Auto) % (0.0-3.0) Basophils (%) (Auto) % (0.0-2.0) Differential Total Cells Counted 100 Neutrophils % (Manual) 92 % (45-75) H Lymphocytes % (Manual) 4 % (20-45) L Monocytes % (Manual) 4 % (1-10) Eosinophils % (Manual) 0 % (0-3) Basophils % (Manual) 0 % (0-2) Band Neutrophils 0 % (0-8) Platelet Estimate Decreased L Platelet Morphology Normal Anisocytosis 1+ Sodium Level 147 MMOL/L (136-145) H Potassium Level 4.1 MMOL/L (3.5-5.1) Chloride Level 116 MMOL/L (98-107) H Carbon Dioxide Level 22 MMOL/L (21-32) Anion Gap 9 mmol/L (5-15) Blood Urea Nitrogen 41 mg/dL (7-18) H Creatinine 1.6 MG/DL (0.55-1.30) H Estimat Glomerular Filtration Rate 41.7 mL/min (>60) Glucose Level 113 MG/DL (74-106) H Calcium Level 8.3 MG/DL (8.5-10.1) L Magnesium Level 2.4 MG/DL (1.8-2.4) Ferritin 1004 NG/ML (8-388) H Troponin I 4.263 ng/mL (0.000-0.056) C-Reactive Protein, Quantitative 26.1 mg/dL (0.00-0.90) H Pro-B-Type Natriuretic Peptide > 94405 pg/mL (0-125) H Arterial Blood pH 7.412 (7.350-7.450) Arterial Blood Partial Pressure CO2 30.2 mmHg (35.0-45.0) L Arterial Blood Partial Pressure O2 86.5 mmHg (75.0-100.0) Arterial Blood HCO3 18.8 mmol/L (22.0-26.0) L Arterial Blood Oxygen Saturation 96.4 % (95-100) Arterial Blood Base Excess -4.5 (-2-2) L Tj Test Positive Current Medications Medications (Trade) Dose Ordered Sig/Blanquita Route PRN Reason Start Time Stop Time Status Last Admin Dose Admin Acetaminophen (Tylenol) 650 mg Q4H PRN ORAL Mild Pain (Pain Scale 1-3) 03/17/20 20:45 04/16/20 20:44 Acetaminophen (Tylenol) 650 mg Q4H PRN ORAL Temp >100.5 03/17/20 20:45 04/16/20 20:44 Albuterol Sulfate (Proventil MDI) 2 puff Q4H PRN INH Shortness of Breath 03/18/20 11:15 06/16/20 11:14 Aspirin (ASA) 81 mg DAILY ORAL 03/22/20 09:00 05/06/20 08:59 Atorvastatin Calcium (Lipitor) 80 mg BEDTIME ORAL 03/18/20 21:00 06/16/20 20:59 03/21/20 20:59 Barium Sulfate (Varibar Honey) 250 ml NOW PRN RAD 03/21/20 15:45 03/24/20 15:38 Barium Sulfate (Varibar [place]) 240 ml NOW PRN MC RAD 03/21/20 15:45 03/24/20 15:38 Barium Sulfate (Varibar Pudding) 230 ml NOW PRN MC RAD 03/21/20 15:45 03/24/20 15:38 Barium Sulfate (Varibar Thin Liquid powder) 148 gm NOW PRN MC RAD 03/21/20 15:45 03/24/20 15:38 Clopidogrel Bisulfate (Plavix) 75 mg DAILY ORAL 03/18/20 09:00 04/17/20 08:59 03/18/20 10:23 Dexamethasone Sodium Phosphate (Decadron 4mg/ml vial) 6 mg DAILY IVP 03/18/20 11:00 03/27/20 09:01 03/21/20 09:27 Dextrose (Dextrose 50%) 25 ml Q30M PRN IV Hypoglycemia 03/18/20 11:00 06/16/20 10:59 Dextrose (Dextrose 50%) 50 ml Q30M PRN IV Hypoglycemia 03/18/20 11:00 06/16/20 10:59 Enoxaparin Sodium (Lovenox) 80 mg DAILY SUBQ 03/18/20 09:00 06/16/20 08:59 Famotidine (Pepcid) 20 mg BID ORAL 03/18/20 18:00 06/16/20 17:59 03/21/20 17:22 Gabapentin (Neurontin) 300 mg BID ORAL 03/21/20 18:00 04/20/20 17:59 03/21/20 17:22 Insulin Aspart (NovoLOG) BEFORE MEALS SUBQ 03/19/20 06:30 06/17/20 06:29 Magnesium Hydroxide (Mom) 30 ml HSPRN PRN ORAL Constipation 03/17/20 20:45 04/16/20 20:44 Meropenem 1 gm/ Sodium Chloride 55 ml @ 110 mls/hr Q12HR IVPB 03/21/20 21:00 03/26/20 20:59 03/21/20 21:00 Metoprolol Tartrate (Lopressor) 50 mg Q12HR ORAL 03/20/20 21:00 06/18/20 20:59 03/21/20 21:00 Nitroglycerin (Ntg) 0.4 mg Q5M X 3 DOSES PRN SL Prn Chest Pain 03/17/20 20:45 04/16/20 20:44 Ondansetron HCl (Zofran) 4 mg Q6H PRN IVP Nausea & Vomiting 03/17/20 20:45 04/16/20 20:44 Sertraline HCl (Zoloft) 100 mg DAILY ORAL 03/18/20 09:00 04/17/20 08:59 03/21/20 09:27 Trazodone HCl (Desyrel) 50 mg QHS ORAL 03/17/20 21:00 04/16/20 20:59 03/21/20 21:00 Vancomycin HCl (Vanco pharmacy to dose) 1 ea DAILY PRN MISC Per rx protocol 03/18/20 14:00 04/17/20 13:59 Bety Steen MD Mar 21, 2020 22:27
--- NOTE | 2020-03-22 02:00 | Consultation ---
DATE OF CONSULTATION: 03/19/2020 INFECTIOUS DISEASE CONSULT ATTENDING PHYSICIAN: Mike Alexander M.D. REFERRING PHYSICIAN: Mike Alexander M.D. REASON FOR CONSULTATION: Gram-negative UTI, sepsis, COVID-19 infection, possible aspiration, healthcare-acquired pneumonia, community-acquired pneumonia, hypoxia, leukocytosis, fevers. REASON FOR ADMISSION: Sepsis, fevers, pyelonephritis, COVID infection, shortness of breath, possible acute SC. HISTORY OF PRESENT ILLNESS: This is an 79-year-old male who comes in to [facility]. The patient is not a very good historian. He presented with shortness of breath, cough, congestion. The patient also had an elevated white count. The patient is possibly septic. The patient's workup shows that he has gram-negative UTI, elevated white count, sepsis, history of fevers. His COVID testing was positive for COVID infection. The patient also had possible SC. Chest x-ray showed what looks like pneumonia in the right mid lung area. Infections disease consult is requested for further management of this patient with multiple infections including COVID infection, gram-negative UTI or UTI sepsis, fevers, leukocytosis, pneumonia. When I saw the patient, I placed the patient on Zosyn, vancomycin, and dexamethasone. The patient also was in acute renal failure, limiting the use of remdesivir unless needed. Continue vancomycin, Zosyn, and dexamethasone for sepsis, pneumonia, UTI, and COVID infection. The patient is in COVID isolation. MAR is noted. Orders noted. Notes are reviewed. Case discussed with RN. REVIEW OF SYSTEMS: The patient is in COVID isolation. The patient has a Reyes. The patient is on O2. The patient is weak. Opens eyes, somewhat responsive. HEAD AND NECK: No obvious head pain or neck pain. CARDIAC: No chest pain or pressors. GASTROINTESTINAL: No nausea, vomiting, diarrhea. GENITOURINARY: Has a Reyes. PULMONARY: Has some shortness of breath. SKIN: No rash. EXTREMITIES: No pain. NEUROLOGIC: No seizures. Denies fatigue. Generalized weakness. No seizure activity. No new rash noted. No fevers. Review of systems is otherwise limited in this patient. PAST MEDICAL HISTORY: The patient has a past medical history of acute kidney injury, anemia, aortic stenosis, hypertension, hyperlipidemia, dementia, chronic renal insufficiency, non-STEMI, CHF, and CAD. ALLERGIES: He has no known drug allergies. No antibiotic allergies. SOCIAL HISTORY: Negative for smoking, alcohol, drug use. FAMILY HISTORY: Noncontributory. Negative for tuberculosis or cancer. MEDICATIONS: Upon reviewing the MAR, the patient is on following medications: Aspirin, gabapentin, barium sulfate, metoprolol, insulin, Zosyn, vancomycin, dexamethasone, metoprolol, insulin, atorvastatin, famotidine, sertraline, enoxaparin, trazodone, nitroglycerin, Zofran. Outside medications noted and reconciled. PHYSICAL EXAMINATION: VITAL SIGNS: Temperature 98.0, pulse rate is 69, respiratory rate is 22, blood pressure is 115/63, saturation 98% on 4 L. GENERAL: Weak, responsive, and some mild shortness of breath noted. HEAD AND NECK: Oral exam, no thrush. Eye exam, no icterus. Normocephalic. Neck is supple. No JVD. HEART: Regular with a 1/6 holosystolic murmur. No friction or rub. ABDOMEN: Soft. Positive bowel sounds. Nontender. LUNGS: A few bilateral rhonchi, rales, and crackles. SKIN: No rash. MUSCULOSKELETAL: No effusion. Legs are without cellulitis. PERIPHERAL VASCULAR: No cyanosis or gangrene. No evidence of septic arthritis. GENITOURINARY: Has a Reyes. Urine is cloudy. LINE SITES: Without phlebitis. No central line. NEUROLOGIC: Weakness, but responsive. LABORATORY DATA: While count 11.5, hemoglobin 12.9. White count yesterday on 03/18/2020 was 14.8. Chemistry, creatinine 1.7. LFTs noted. UA had 23 white blood cells, many bacteria, positive nitrite, positive leukocyte esterase. Cultures, urine culture with gram-negative rods, identification pending. Blood culture is negative to date. SARS COVID nasopharyngeal testing was positive. Chest x-ray showed patchy right mid lung and right base airspace disease. Chest x-ray with patchy right mid lung and right airspace disease concerning for pneumonia. ASSESSMENT AND PLAN: 1. The patient has gram-negative UTI. The patient has sepsis, fevers, leukocytosis, SIRS criteria. The patient also has COVID-19 infection and hypoxia. The patient also has what looks like aspiration and healthcare-acquired pneumonia versus community-acquired pneumonia. At this time, we will continue vancomycin and Zosyn empirically for MRSA gram-negative anaerobic coverage. Continue vancomycin and Zosyn for gram-negative UTI, sepsis, leukocytosis, fevers, and also aspiration versus healthcare-acquire versus community-acquired pneumonia. Also continue dexamethasone for COVID-19 infection with hypoxia. The patient may need remdesivir; however, he is in acute renal failure, which is not recommended for treatment with remdesevir unless needed. Monitor hypoxia. Monitor chest x-ray and labs. Monitor inflammatory markers. Continue vancomycin and Zosyn and dexamethasone for gram-negative UTI, sepsis, pneumonia, and COVID infection. Check followup labs and chest x-ray. 2. Acute kidney injury, elevated creatinine, likely chronic renal failure. 3. Anemia. 4. Aortic stenosis. 5. Hypertension. 6. Blood pressure treatment per primary care team for hypertension. 7. Hyperlipidemia or dyslipidemia. 8. Dementia. 9. Non-STEMI. 10. CHF and CAD. 11. Elevated troponin. 12. No known drug allergies. 13. Social history negative. 14. Family history noncontributory. 15. MAR is noted. 16. Case was discussed with RN. 17. Continue treatment per primary consultants. 18. Orders were noted and entered . 19. COVID isolation. Proper PPEs are worn. Bety Steen M.D. DR: JAYLEEN JOB#: [id number] CC:
--- NOTE | 2020-03-22 02:44 | Cardiology Progress Note ---
Subjective DATE OF SERVICE: Mar 21, 2020 Condition remains critical - prognosis guarded Troponin peaked above 7; remains elevated above 4 today. Monitor sinus with PAC's - has paroxysms of atrial fib/flutter 2D Echo: EF 40% with moderate aortic stenosis (1.2 cm2) and moderate mitral and tricuspid regurg. Patient remains with baseline confusion. ABG (03/21) 7.41/30/86 Objective Last 24 Hour Vital Signs Date Time Temp Pulse Resp B/P (MAP) Pulse Ox O2 Delivery O2 Flow Rate FiO2 03/22/20 00:00 Non-Rebreather 15.0 03/21/20 23:56 97.7 104 24 147/79 (101) 95 03/21/20 23:41 98 03/21/20 21:00 68 144/87 03/21/20 20:10 95 Non-Rebreather 15.0 100 03/21/20 20:00 Non-Rebreather 15.0 03/21/20 20:00 97.7 68 22 144/87 (106) 95 03/21/20 20:00 57 03/21/20 16:00 Non-Rebreather 15.0 03/21/20 16:00 63 03/21/20 16:00 97.8 65 20 155/96 (115) 95 03/21/20 12:00 68 03/21/20 12:00 97.8 59 23 143/73 (96) 95 03/21/20 12:00 Non-Rebreather 15.0 03/21/20 09:00 55 145/97 03/21/20 08:00 97.7 55 23 145/97 (113) 96 03/21/20 08:00 Non-Rebreather 15.0 03/21/20 08:00 56 03/21/20 07:47 96 Non-Rebreather 15.0 100 03/21/20 04:00 97.0 56 23 102/66 (78) 96 03/21/20 04:00 60 03/21/20 04:00 Non-Rebreather 15.0 ROS: no change from 03/17/20 HEENT: normal ENT inspection RHYTHM: NSR, ST LUNGS: bilat. rhonchi and rales CARDIAC: normal rate, regular rhythm, normal S1 and S2, normal peripheral pulses, systolic murmur - 1/6 systolic ej murmur at base ABDOMEN: normal bowel sounds, non tender, no organomegaly EXTREMITIES: non-tender Laboratory Tests Test 03/21/20 06:44 03/21/20 07:50 03/21/20 09:06 POC Whole Blood Glucose 103 MG/DL (74-106) White Blood Count 11.4 K/UL (4.8-10.8) H Red Blood Count 4.35 M/UL (4.70-6.10) L Hemoglobin 13.6 G/DL (14.2-18.0) L Hematocrit 37.5 % (42.0-52.0) L Mean Corpuscular Volume 86 FL (80-99) Mean Corpuscular Hemoglobin 31.2 PG (27.0-31.0) H Mean Corpuscular Hemoglobin Concent 36.2 G/DL (32.0-36.0) H Red Cell Distribution Width 15.3 % (11.6-14.8) H Platelet Count 120 K/UL (150-450) L Mean Platelet Volume 8.2 FL (6.5-10.1) Neutrophils (%) (Auto) % (45.0-75.0) Lymphocytes (%) (Auto) % (20.0-45.0) Monocytes (%) (Auto) % (1.0-10.0) Eosinophils (%) (Auto) % (0.0-3.0) Basophils (%) (Auto) % (0.0-2.0) Differential Total Cells Counted 100 Neutrophils % (Manual) 92 % (45-75) H Lymphocytes % (Manual) 4 % (20-45) L Monocytes % (Manual) 4 % (1-10) Eosinophils % (Manual) 0 % (0-3) Basophils % (Manual) 0 % (0-2) Band Neutrophils 0 % (0-8) Platelet Estimate Decreased L Platelet Morphology Normal Anisocytosis 1+ Sodium Level 147 MMOL/L (136-145) H Potassium Level 4.1 MMOL/L (3.5-5.1) Chloride Level 116 MMOL/L (98-107) H Carbon Dioxide Level 22 MMOL/L (21-32) Anion Gap 9 mmol/L (5-15) Blood Urea Nitrogen 41 mg/dL (7-18) H Creatinine 1.6 MG/DL (0.55-1.30) H Estimat Glomerular Filtration Rate 41.7 mL/min (>60) Glucose Level 113 MG/DL (74-106) H Calcium Level 8.3 MG/DL (8.5-10.1) L Magnesium Level 2.4 MG/DL (1.8-2.4) Ferritin 1004 NG/ML (8-388) H Troponin I 4.263 ng/mL (0.000-0.056) C-Reactive Protein, Quantitative 26.1 mg/dL (0.00-0.90) H Pro-B-Type Natriuretic Peptide > 72232 pg/mL (0-125) H Arterial Blood pH 7.412 (7.350-7.450) Arterial Blood Partial Pressure CO2 30.2 mmHg (35.0-45.0) L Arterial Blood Partial Pressure O2 86.5 mmHg (75.0-100.0) Arterial Blood HCO3 18.8 mmol/L (22.0-26.0) L Arterial Blood Oxygen Saturation 96.4 % (95-100) Arterial Blood Base Excess -4.5 (-2-2) L Tj Test Positive Assessment/Plan Assessment/Plan Acute myocardial infarcton Respiratory failure Covid 19 PNA Chronic systolic and diastolic CHF Paroxysmal atrial arrhythmias Acute kidney injury Hypoxia Dehydration/hypovolemia Degenerative aortic valve disease with stenosis IVF Antiplatelet therapy Beta blockade Nitrates Anti-virals Full anticoagulation Steroids per ID Oxygen suppl Monitor volume status and renal function Joel Rowe MD Mar 22, 2020 02:44
[2020-03-22 04:00] VITALS: BP 143/104
[2020-03-22] MEDS: NovoLOG Insulin Flexpen SUBQ SCH ×3 (06:30→17:59)
--- NOTE | 2020-03-22 07:56 | Pulmonology Progress Note ---
Subjective Constitutional: Reports: fatigue, other - on high flow O2; Denies: fever Gastrointestinal/Abdominal: Denies: nausea, vomiting, diarrhea Psychiatric: Reports: other - NA Skin: Denies: rash Musculoskeletal: Reports: other - NA Allergies: Coded Allergies: No Known Allergies (Unverified , 03/17/20) Subjective remains on NRM ABG on NRM w/out hypercapnia CXR 03/21 with worsening near complete consolidtaion R lung no fevers, no leukocytosis troponin up to 4.6 yesterday remains in isolation denies CP, labs pending for this am Objective Last 24 Hour Vital Signs Date Time Temp Pulse Resp B/P (MAP) Pulse Ox O2 Delivery O2 Flow Rate FiO2 03/22/20 04:00 97.2 88 24 143/104 (117) 98 03/22/20 04:00 Non-Rebreather 15.0 03/22/20 03:41 108 03/22/20 00:00 Non-Rebreather 15.0 03/21/20 23:56 97.7 104 24 147/79 (101) 95 03/21/20 23:41 98 03/21/20 21:00 68 144/87 03/21/20 20:10 95 Non-Rebreather 15.0 100 03/21/20 20:00 Non-Rebreather 15.0 03/21/20 20:00 97.7 68 22 144/87 (106) 95 03/21/20 20:00 57 03/21/20 16:00 Non-Rebreather 15.0 03/21/20 16:00 63 03/21/20 16:00 97.8 65 20 155/96 (115) 95 03/21/20 12:00 68 03/21/20 12:00 97.8 59 23 143/73 (96) 95 03/21/20 12:00 Non-Rebreather 15.0 03/21/20 09:00 55 145/97 03/21/20 08:00 97.7 55 23 145/97 (113) 96 03/21/20 08:00 Non-Rebreather 15.0 03/21/20 08:00 56 Intake and Output 03/21/20 03/22/20 19:00 07:00 Intake Total 327.5 ml Output Total 800 ml 350 ml Balance -472.5 ml -350 ml Intake Oral 300 ml IV Total 27.5 ml Output Urine Total 800 ml 350 ml Objective General Appearance: alert, responsive no resp distress, Lines, tubes and drains: peripheral HEENT: normocephalic, atraumatic, anicteric, PERRL, O2 via NRM Neck: supple Respiratory/Chest: few isolated rhonchi on the R Cardiovascular/Chest: normal peripheral pulses, irregular - tele a flutter controlled rate Abdomen: normal bowel sounds, non tender, soft Extremities: no calf tenderness, normal capillary refill, BL foot SYME procedure Skin Exam: warm/dry Neurologic: abnormal gait, awake, responsive Musculoskeletal: atrophy BLE Laboratory Tests 03/21/20 09:06: Arterial Blood pH 7.412, Arterial Blood Partial Pressure CO2 30.2L, Arterial Blood Partial Pressure O2 86.5, Arterial Blood HCO3 18.8L, Arterial Blood Oxygen Saturation 96.4, Arterial Blood Base Excess -4.5L, Tj Test Positive Current Medications Medications (Trade) Dose Ordered Sig/Blanquita Route PRN Reason Start Time Stop Time Status Last Admin Dose Admin Acetaminophen (Tylenol) 650 mg Q4H PRN ORAL Mild Pain (Pain Scale 1-3) 03/17/20 20:45 04/16/20 20:44 Acetaminophen (Tylenol) 650 mg Q4H PRN ORAL Temp >100.5 03/17/20 20:45 04/16/20 20:44 Albuterol Sulfate (Proventil MDI) 2 puff Q4H PRN INH Shortness of Breath 03/18/20 11:15 06/16/20 11:14 Aspirin (ASA) 81 mg DAILY ORAL 03/22/20 09:00 05/06/20 08:59 Atorvastatin Calcium (Lipitor) 80 mg BEDTIME ORAL 03/18/20 21:00 06/16/20 20:59 03/21/20 20:59 Barium Sulfate (Varibar Honey) 250 ml NOW PRN MC RAD 03/21/20 15:45 03/24/20 15:38 Barium Sulfate (Varibar [place]) 240 ml NOW PRN MC RAD 03/21/20 15:45 03/24/20 15:38 Barium Sulfate (Varibar Pudding) 230 ml NOW PRN MC RAD 03/21/20 15:45 03/24/20 15:38 Barium Sulfate (Varibar Thin Liquid powder) 148 gm NOW PRN MC RAD 03/21/20 15:45 03/24/20 15:38 Clopidogrel Bisulfate (Plavix) 75 mg DAILY ORAL 03/18/20 09:00 04/17/20 08:59 03/18/20 10:23 Dexamethasone Sodium Phosphate (Decadron 4mg/ml vial) 6 mg DAILY IVP 03/18/20 11:00 03/27/20 09:01 03/21/20 09:27 Dextrose (Dextrose 50%) 25 ml Q30M PRN IV Hypoglycemia 03/18/20 11:00 06/16/20 10:59 Dextrose (Dextrose 50%) 50 ml Q30M PRN IV Hypoglycemia 03/18/20 11:00 06/16/20 10:59 Enoxaparin Sodium (Lovenox) 80 mg DAILY SUBQ 03/18/20 09:00 06/16/20 08:59 Famotidine (Pepcid) 20 mg BID ORAL 03/18/20 18:00 06/16/20 17:59 03/21/20 17:22 Gabapentin (Neurontin) 300 mg BID ORAL 03/21/20 18:00 04/20/20 17:59 03/21/20 17:22 Insulin Aspart (NovoLOG) BEFORE MEALS SUBQ 03/19/20 06:30 06/17/20 06:29 Magnesium Hydroxide (Mom) 30 ml HSPRN PRN ORAL Constipation 03/17/20 20:45 04/16/20 20:44 Meropenem 1 gm/ Sodium Chloride 55 ml @ 110 mls/hr Q12HR IVPB 03/21/20 21:00 03/26/20 20:59 03/21/20 21:00 Metoprolol Tartrate (Lopressor) 50 mg Q12HR ORAL 03/20/20 21:00 06/18/20 20:59 03/21/20 21:00 Nitroglycerin (Ntg) 0.4 mg Q5M X 3 DOSES PRN SL Prn Chest Pain 03/17/20 20:45 04/16/20 20:44 Ondansetron HCl (Zofran) 4 mg Q6H PRN IVP Nausea & Vomiting 03/17/20 20:45 04/16/20 20:44 Sertraline HCl (Zoloft) 100 mg DAILY ORAL 03/18/20 09:00 04/17/20 08:59 03/21/20 09:27 Trazodone HCl (Desyrel) 50 mg QHS ORAL 03/17/20 21:00 04/16/20 20:59 03/21/20 21:00 Vancomycin HCl (Vanco pharmacy to dose) 1 ea DAILY PRN MISC Per rx protocol 03/18/20 14:00 04/17/20 13:59 Assessment/Plan Assessment/Plan ASSESSMENT Acute hypoxemic respiratory failure likely due to COVID pneumonia and probable NSTEMI COVID-19 pneumonia Possible aspiration PNA Elevated troponin , probably due to demand, Possible NSTEMI PAF Lactic acidosis UTI , possible pyelo ( with history of prior pyelonephritis) Acute kidney injury on chronic kidney disease Hypertension with initial hypertensive urgency 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% Aortic stenosis PLAN OF CARE SDU droplet isolation COVID rapid and by PCR both positive off BiPAP CXR and ABG stat titrate O2 to keep sat > 92% now on 100% NRM steroids no Remdesivir given renal failure ( ID recommends only if not responsive to steroids) full a/c with Lovenox, Proventil MDI prn abx -per ID BCX NGTD UCX E coli ESBL fup with inflammatory markers to access risk for cytokine storm CRP up to 27 on 03/19 , ferritin up to 460 on 03/19 Venous Duplex BLE NGT CXR 03/19 with new patchy right midlung and right base airspace process concerning for pneumonia SCX if able CXR 03/21 with worsening R lung consolidation swallow eval ? aspiration aspiration precautions repeat CXR 03/23 ECHO noted with rEF 40% , evidence of cardio on board DAPT with ASA and Plavix, BB, nitrate serial troponin-last up full a/c with Lovenox GI prophylaxis monitor volumes per cardio->no diuresis for now gentle IV hydration monitor volumes, avoid nephrotoxics creat trending down, abd US with echogenic kidneys, c/w probable medical renal disease supportive care case discussed and evaluated by supervising physician Suzette Crabtree NP Mar 22, 2020 07:56 See Grace MD Mar 22, 2020 16:16
[2020-03-22 08:00] VITALS: BP 173/93
[2020-03-22 08:31] LABS: HEMATOCRIT 42.4 % (42.0-52.0); HEMOGLOBIN 15.3 G/DL (14.2-18.0); MEAN CORPUSCULAR VOLUME 86 FL (80-99); PLATELET COUNT 150 K/UL (150-450); RED BLOOD COUNT 4.95 M/UL (4.70-6.10); RED CELL DISTRIBUTION WIDTH 14.2 % (11.6-14.8); WHITE BLOOD COUNT 15.5 K/UL (4.8-10.8)
[2020-03-22] MEDS: Enoxaparin 80mg Inj SUBQ SCH (08:34)
[2020-03-22] MEDS: Metoprolol Tartrate 50mg tab ORAL SCH ×2 (08:35→21:00)
[2020-03-22] MEDS: Meropenem 1gm/NS 55ml IVPB SCH ×4 (08:35→20:53)
[2020-03-22] MEDS: Aspirin Baby 81mg ORAL SCH (08:35)
[2020-03-22] MEDS: Gabapentin 300 MG/6 ML Soln ORAL SCH ×2 (08:36→18:00)
[2020-03-22] MEDS: Sertraline 50mg tab ORAL SCH (08:36)
[2020-03-22 08:44] LABS: ALBUMIN 2.1 G/DL (3.4-5.0); ALBUMIN/GLOBULIN RATIO 0.4 (1.0-2.7); BILIRUBIN,TOTAL 0.9 MG/DL (0.2-1.0); CALCIUM 8.8 MG/DL (8.5-10.1); CREATININE 1.5 MG/DL (0.55-1.30); POTASSIUM 3.8 MMOL/L (3.5-5.1)
--- NOTE | 2020-03-22 10:58 | General Progress Note ---
Subjective ROS Limited/Unobtainable: Yes Allergies: Coded Allergies: No Known Allergies (Unverified , 03/17/20) Objective Last 24 Hour Vital Signs Date Time Temp Pulse Resp B/P (MAP) Pulse Ox O2 Delivery O2 Flow Rate FiO2 03/22/20 08:06 97 Non-Rebreather 15.0 100 03/22/20 08:00 81 03/22/20 08:00 Non-Rebreather 15.0 03/22/20 08:00 97.7 79 18 173/93 (119) 99 03/22/20 04:00 97.2 88 24 143/104 (117) 98 03/22/20 04:00 Non-Rebreather 15.0 03/22/20 03:41 108 03/22/20 00:00 Non-Rebreather 15.0 03/21/20 23:56 97.7 104 24 147/79 (101) 95 03/21/20 23:41 98 03/21/20 21:00 68 144/87 03/21/20 20:10 95 Non-Rebreather 15.0 100 03/21/20 20:00 Non-Rebreather 15.0 03/21/20 20:00 97.7 68 22 144/87 (106) 95 03/21/20 20:00 57 03/21/20 16:00 Non-Rebreather 15.0 03/21/20 16:00 63 03/21/20 16:00 97.8 65 20 155/96 (115) 95 03/21/20 12:00 68 03/21/20 12:00 97.8 59 23 143/73 (96) 95 03/21/20 12:00 Non-Rebreather 15.0 Intake and Output 03/21/20 03/22/20 19:00 07:00 Intake Total 327.5 ml Output Total 800 ml 350 ml Balance -472.5 ml -350 ml Intake Oral 300 ml IV Total 27.5 ml Output Urine Total 800 ml 350 ml Laboratory Tests 03/22/20 08:00: White Blood Count 15.5H, Red Blood Count 4.95, Hemoglobin 15.3, Hematocrit 42.4, Mean Corpuscular Volume 86, Mean Corpuscular Hemoglobin 30.9, Mean Corpuscular Hemoglobin Concent 36.1H, Red Cell Distribution Width 14.2, Platelet Count 150, Mean Platelet Volume 7.0, Neutrophils (%) (Auto) , Lymphocytes (%) (Auto) , Monocytes (%) (Auto) , Eosinophils (%) (Auto) , Basophils (%) (Auto) , Differential Total Cells Counted 100, Neutrophils % (Manual) 97H, Lymphocytes % (Manual) 2L, Monocytes % (Manual) 1, Eosinophils % (Manual) 0, Basophils % (Manual) 0, Band Neutrophils 0, Platelet Estimate Adequate, Platelet Morphology Normal, Red Blood Cell Morphology Normal, Sodium Level 149H, Potassium Level 3.8, Chloride Level 118H, Carbon Dioxide Level 18L, Anion Gap 13, Blood Urea Nitrogen 42H, Creatinine 1.5H, Estimat Glomerular Filtration Rate 44.9, Glucose Level 120H, Calcium Level 8.8, Total Bilirubin 0.9, Aspartate Amino Transf (AST/SGOT) 47H, Alanine Aminotransferase (ALT/SGPT) 45, Alkaline Phosphatase 62, Total Protein 6.8, Albumin 2.1L, Globulin 4.7, Albumin/Globulin Ratio 0.4L Height (Feet): 5 Height (Inches): 9.00 Weight (Pounds): 190 General Appearance: mild distress EENT: normal ENT inspection Neck: normal alignment Cardiovascular: regular rhythm Respiratory/Chest: decreased breath sounds Abdomen: soft Edema: no edema noted Arm (L), no edema noted Arm (R), no edema noted Leg (L), no edema noted Leg (R), no edema noted Pedal (L), no edema noted Pedal (R), no edema noted Generalized Neurologic: digitizer II-XII grossly normal Assessment/Plan Problem List: (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 SNOMED: 350496679 (2) CHF (congestive heart failure) ICD Codes: I50.9 - Heart failure, unspecified SNOMED: 04038087 (3) Dehydration ICD Codes: E86.0 - Dehydration SNOMED: 35801983 (4) Respiratory failure ICD Codes: J96.90 - Respiratory failure, unspecified, unspecified whether with hypoxia or hypercapnia SNOMED: 429796531 (5) TUCKER (acute kidney injury) ICD Codes: N17.9 - Acute kidney failure, unspecified SNOMED: 0520104, 32099510 (6) Metabolic acidosis ICD Codes: E87.2 - Acidosis SNOMED: 70491319 (7) Aortic stenosis ICD Codes: I35.0 - Nonrheumatic aortic (valve) stenosis SNOMED: 57337344 (8) Sepsis ICD Codes: A41.9 - Sepsis, unspecified organism SNOMED: 99888032 (9) Non-ST elevated myocardial infarction ICD Codes: I21.4 - Non-ST elevation (NSTEMI) myocardial infarction SNOMED: 35026509 (10) Pyelonephritis ICD Codes: N12 - Tubulo-interstitial nephritis, not specified as acute or chronic SNOMED: 91076051 (11) Elevated troponin ICD Codes: R77.8 - Other specified abnormalities of plasma proteins SNOMED: 942085023, 704774163, 065576384 (12) COVID-19 ICD Codes: U07.1 - COVID-19 SNOMED: 080147243 (13) UTI (urinary tract infection) ICD Codes: N39.0 - Urinary tract infection, site not specified SNOMED: 35374529, 891533596, 816341787 Qualifiers: Qualified Codes: N39.0 - Urinary tract infection, site not specified (14) Dysphagia ICD Codes: R13.10 - Dysphagia, unspecified SNOMED: 30799074, 452199593 (15) Pneumonia due to COVID-19 virus ICD Codes: U07.1 - COVID-19; J12.89 - Other viral pneumonia Assessment/Plan: high trop, now tawnya+ off bipap,nonrebreather but desat and nonrebreather, infiltrates on cxr, cont rx for sepsis and covid and acute Mi, change to meropenam for esbl uti, dysphagia, puree, restaart iv Mike Alexander MD Mar 22, 2020 10:58
[2020-03-22 12:00] VITALS: BP 180/114
[2020-03-22] MEDS: Metoprolol Tartrate 10 MG in D5W 55 ML IVPB SCH ×2 (15:02→18:21)
[2020-03-22 16:00] VITALS: BP 180/90
[2020-03-22] MEDS ORDERED: Loading Dose:Remdesivir 200mg/NS 210ml IV SCH ×2 (16:00)
--- NOTE | 2020-03-22 19:06 | Cardiology Progress Note ---
Subjective DATE OF SERVICE: Mar 22, 2020 Condition remains critical - prognosis guarded Troponin peaked above 7; remains elevated above 4 yesterday. Monitor sinus with PAC's - has paroxysms of atrial fib/flutter 2D Echo: EF 40% with moderate aortic stenosis (1.2 cm2) and moderate mitral and tricuspid regurg. Patient remains with baseline confusion. He is unable to take oral meds today ABG (03/21) 7.41/ Objective Last 24 Hour Vital Signs Date Time Temp Pulse Resp B/P (MAP) Pulse Ox O2 Delivery O2 Flow Rate FiO2 03/22/20 18:21 90 151/94 03/22/20 16:00 70 03/22/20 16:00 Non-Rebreather 15.0 03/22/20 15:02 71 180/114 03/22/20 12:00 Non-Rebreather 15.0 03/22/20 12:00 97.0 79 20 180/114 (136) 99 03/22/20 12:00 71 03/22/20 08:06 97 Non-Rebreather 15.0 100 03/22/20 08:00 81 03/22/20 08:00 Non-Rebreather 15.0 03/22/20 08:00 97.7 79 18 173/93 (119) 99 03/22/20 04:00 97.2 88 24 143/104 (117) 98 03/22/20 04:00 Non-Rebreather 15.0 03/22/20 03:41 108 03/22/20 00:00 Non-Rebreather 15.0 03/21/20 23:56 97.7 104 24 147/79 (101) 95 03/21/20 23:41 98 03/21/20 21:00 68 144/87 03/21/20 20:10 95 Non-Rebreather 15.0 100 03/21/20 20:00 Non-Rebreather 15.0 03/21/20 20:00 97.7 68 22 144/87 (106) 95 03/21/20 20:00 57 ROS: no change from 03/17/20 HEENT: normal ENT inspection RHYTHM: NSR, ST LUNGS: bilat. rhonchi and rales CARDIAC: normal rate, regular rhythm, normal S1 and S2, normal peripheral pulses, systolic murmur - 1/6 systolic ej murmur at base ABDOMEN: normal bowel sounds, non tender, no organomegaly EXTREMITIES: non-tender Laboratory Tests Test 03/22/20 08:00 03/22/20 16:26 White Blood Count 15.5 K/UL (4.8-10.8) H Red Blood Count 4.95 M/UL (4.70-6.10) Hemoglobin 15.3 G/DL (14.2-18.0) Hematocrit 42.4 % (42.0-52.0) Mean Corpuscular Volume 86 FL (80-99) Mean Corpuscular Hemoglobin 30.9 PG (27.0-31.0) Mean Corpuscular Hemoglobin Concent 36.1 G/DL (32.0-36.0) H Red Cell Distribution Width 14.2 % (11.6-14.8) Platelet Count 150 K/UL (150-450) Mean Platelet Volume 7.0 FL (6.5-10.1) Neutrophils (%) (Auto) % (45.0-75.0) Lymphocytes (%) (Auto) % (20.0-45.0) Monocytes (%) (Auto) % (1.0-10.0) Eosinophils (%) (Auto) % (0.0-3.0) Basophils (%) (Auto) % (0.0-2.0) Differential Total Cells Counted 100 Neutrophils % (Manual) 97 % (45-75) H Lymphocytes % (Manual) 2 % (20-45) L Monocytes % (Manual) 1 % (1-10) Eosinophils % (Manual) 0 % (0-3) Basophils % (Manual) 0 % (0-2) Band Neutrophils 0 % (0-8) Platelet Estimate Adequate Platelet Morphology Normal Red Blood Cell Morphology Normal Sodium Level 149 MMOL/L (136-145) H Potassium Level 3.8 MMOL/L (3.5-5.1) Chloride Level 118 MMOL/L (98-107) H Carbon Dioxide Level 18 MMOL/L (21-32) L Anion Gap 13 mmol/L (5-15) Blood Urea Nitrogen 42 mg/dL (7-18) H Creatinine 1.5 MG/DL (0.55-1.30) H Estimat Glomerular Filtration Rate 44.9 mL/min (>60) Glucose Level 120 MG/DL (74-106) H Calcium Level 8.8 MG/DL (8.5-10.1) Total Bilirubin 0.9 MG/DL (0.2-1.0) Aspartate Amino Transf (AST/SGOT) 47 U/L (15-37) H Alanine Aminotransferase (ALT/SGPT) 45 U/L (12-78) Alkaline Phosphatase 62 U/L (46-116) Total Protein 6.8 G/DL (6.4-8.2) Albumin 2.1 G/DL (3.4-5.0) L Globulin 4.7 g/dL Albumin/Globulin Ratio 0.4 (1.0-2.7) L Arterial Blood pH 7.464 (7.350-7.450) Arterial Blood Partial Pressure CO2 22.9 mmHg (35.0-45.0) *L Arterial Blood Partial Pressure O2 52.0 mmHg (75.0-100.0) L Arterial Blood HCO3 16.1 mmol/L (22.0-26.0) *L Arterial Blood Oxygen Saturation 89.0 % (95-100) *L Arterial Blood Base Excess -5.4 (-2-2) L Tj Test Positive Assessment/Plan Assessment/Plan Acute myocardial infarcton Respiratory failure Covid 19 PNA Chronic systolic and diastolic CHF Paroxysmal atrial arrhythmias Acute kidney injury Hypoxia Dehydration/hypernatremia Degenerative aortic valve disease with stenosis IVF - hypotonic Antiplatelet therapy Beta blockade - by IV route for now. Nitrates added topically for now. Anti-virals Full anticoagulation Steroids per ID Oxygen suppl Monitor volume status and renal function Joel Rowe MD Mar 22, 2020 19:06
[2020-03-22 20:00] VITALS: BP 102/67
[2020-03-22] MEDS: Atorvastatin 80mg tab ORAL SCH (20:52)
[2020-03-22] MEDS: TraZODone 50mg tab ORAL SCH (20:52)
[2020-03-22] MEDS ORDERED: Vancomycin 1.5gm/300ml Premix IVPB ONE (21:00)
[2020-03-23] VITALS: BP 146/99
[2020-03-23] MEDS: Metoprolol Tartrate 10 MG in D5W 55 ML IVPB SCH ×4 (00:03→18:24)
[2020-03-23 04:00] VITALS: BP 129/81
[2020-03-23] MEDS: Nitroglycerin 2% oint pkt TOPIC SCH ×3 (06:24→18:23)
[2020-03-23] MEDS: NovoLOG Insulin Flexpen SUBQ SCH ×3 (06:25→16:30)
[2020-03-23 06:58] LABS: HEMATOCRIT 43.3 % (42.0-52.0); HEMOGLOBIN 15.4 G/DL (14.2-18.0); MEAN CORPUSCULAR VOLUME 88 FL (80-99); PLATELET COUNT 191 K/UL (150-450); RED BLOOD COUNT 4.94 M/UL (4.70-6.10); RED CELL DISTRIBUTION WIDTH 13.8 % (11.6-14.8); WHITE BLOOD COUNT 17.6 K/UL (4.8-10.8)
[2020-03-23 08:00] VITALS: BP 121/64
[2020-03-23 08:24] LABS: ALBUMIN/GLOBULIN RATIO 0.4 (1.0-2.7); CALCIUM 8.7 MG/DL (8.5-10.1); CREATININE 1.6 MG/DL (0.55-1.30); POTASSIUM 4.2 MMOL/L (3.5-5.1)
[2020-03-23] MEDS: Enoxaparin 80mg Inj SUBQ SCH (08:33)
[2020-03-23] MEDS: Meropenem 1gm/NS 55ml IVPB SCH ×4 (08:33→20:30)
[2020-03-23] MEDS: Sertraline 50mg tab ORAL SCH (08:34)
[2020-03-23] MEDS: Metoprolol Tartrate 50mg tab ORAL SCH (08:34)
[2020-03-23] MEDS: Gabapentin 300 MG/6 ML Soln ORAL SCH ×2 (08:34→17:40)
[2020-03-23] MEDS: Aspirin Baby 81mg ORAL SCH (08:34)
--- NOTE | 2020-03-23 10:08 | Pulmonology Progress Note ---
Subjective ROS Limited/Unobtainable: Yes Constitutional: Reports: fatigue, other - on high flow O2; Denies: fever Gastrointestinal/Abdominal: Denies: nausea, vomiting, diarrhea Psychiatric: Reports: other - NA Skin: Denies: rash Musculoskeletal: Reports: other - NA Allergies: Coded Allergies: No Known Allergies (Unverified , 03/17/20) Subjective remains on NRM ABG earlier this am with hypoxemia 88% RT started on BiPAP 23/11 FiO2 100% sat 84097% on monitor no fevers, leukocytosis with trend up this am started on remdesivir 03/22 CXR 03/21 with worsening near complete consolidtaion R lung CXR pendign for this am troponin down to 1.09 remains in isolation denies CP, Objective Last 24 Hour Vital Signs Date Time Temp Pulse Resp B/P (MAP) Pulse Ox O2 Delivery O2 Flow Rate FiO2 03/23/20 08:34 72 115/79 03/23/20 08:11 72 53 93 100 03/23/20 08:00 15.0 03/23/20 08:00 Non-Rebreather 15.0 03/23/20 06:24 115/79 03/23/20 05:32 103 150/100 03/23/20 04:00 Non-Rebreather 15.0 03/23/20 04:00 98.1 117 20 129/81 (97) 96 03/23/20 04:00 15.0 03/23/20 03:41 112 03/23/20 00:03 109 140/99 03/23/20 00:00 Non-Rebreather 15.0 03/23/20 00:00 15.0 03/23/20 00:00 96.8 74 20 146/99 (115) 96 03/22/20 23:28 109 03/22/20 21:00 75 109/63 03/22/20 20:00 96.8 96 20 102/67 (79) 96 03/22/20 20:00 15.0 100 03/22/20 20:00 Non-Rebreather 15.0 03/22/20 19:53 96 Non-Rebreather 15.0 100 03/22/20 19:33 114 03/22/20 18:21 90 151/94 03/22/20 16:00 70 12/13/20 16:00 97.0 72 20 180/90 (120) 96 03/22/20 16:00 Non-Rebreather 15.0 03/22/20 15:02 71 180/114 03/22/20 12:00 Non-Rebreather 15.0 03/22/20 12:00 97.0 79 20 180/114 (136) 99 03/22/20 12:00 71 Intake and Output 03/22/20 03/23/20 19:00 07:00 Intake Total 210 ml 755 ml Output Total 145 ml 250 ml Balance 65 ml 505 ml IV Total 210 ml 755 ml Output Urine Total 145 ml 250 ml Objective General Appearance: alert, responsive , in some resp distress, on BiPAP 23/11 FiO2 100% Lines, tubes and drains: peripheral HEENT: normocephalic, atraumatic, anicteric, PERRL, O2 via BiPAP mask Neck: supple Respiratory/Chest: few rhonchi on the R Cardiovascular/Chest: normal peripheral pulses, irregular - tele a flutter controlled rate , now mat in high 50 th Abdomen: normal bowel sounds, non tender, soft Extremities: no calf tenderness, normal capillary refill, BL foot SYME procedure Skin Exam: warm/dry Neurologic: abnormal gait, awake, responsive Musculoskeletal: atrophy BLE Laboratory Tests 03/22/20 16:26: Arterial Blood pH 7.464H, Arterial Blood Partial Pressure CO2 22.9*L, Arterial Blood Partial Pressure O2 52.0L, Arterial Blood HCO3 16.1*L, Arterial Blood Oxygen Saturation 89.0*L, Arterial Blood Base Excess -5.4L, Tj Test Positive 03/23/20 03:45: White Blood Count 17.6H, Red Blood Count 4.94, Hemoglobin 15.4, Hematocrit 43.3, Mean Corpuscular Volume 88, Mean Corpuscular Hemoglobin 31.1H, Mean Corpuscular Hemoglobin Concent 35.5, Red Cell Distribution Width 13.8, Platelet Count 191, Mean Platelet Volume 6.4L, Neutrophils (%) (Auto) , Lymphocytes (%) (Auto) , Monocytes (%) (Auto) , Eosinophils (%) (Auto) , Basophils (%) (Auto) , Neutrophils % (Manual) [Pending], Lymphocytes % (Manual) [Pending], Platelet Estimate [Pending], Platelet Morphology [Pending], Sodium Level 154H, Potassium Level 4.2, Chloride Level 120H, Carbon Dioxide Level 16L, Anion Gap 18H, Blood Urea Nitrogen 48H, Creatinine 1.6H, Estimat Glomerular Filtration Rate 41.7, Glucose Level 127H, Calcium Level 8.7, Total Bilirubin 1.0, Direct Bilirubin 0.4H, Aspartate Amino Transf (AST/SGOT) 39H, Alanine Aminotransferase (ALT/SGPT) 40, Alkaline Phosphatase 76, Troponin I 1.094H, Pro-B-Type Natriuretic Peptide [Pending], Total Protein 6.6, Albumin 2.0L, Globulin 4.6, Albumin/Globulin Ratio 0.4L 03/23/20 08:30: Arterial Blood pH 7.343L, Arterial Blood Partial Pressure CO2 23.8*L, Arterial Blood Partial Pressure O2 58.1L, Arterial Blood HCO3 12.6*L, Arterial Blood Oxygen Saturation 88.1*L, Arterial Blood Base Excess -10.7*L, Tj Test Positive Current Medications Medications (Trade) Dose Ordered Sig/Blanquita Route PRN Reason Start Time Stop Time Status Last Admin Dose Admin Acetaminophen (Tylenol) 650 mg Q4H PRN ORAL Mild Pain (Pain Scale 1-3) 03/17/20 20:45 04/16/20 20:44 Acetaminophen (Tylenol) 650 mg Q4H PRN ORAL Temp >100.5 03/17/20 20:45 04/16/20 20:44 Albuterol Sulfate (Proventil MDI) 2 puff Q4H PRN INH Shortness of Breath 03/18/20 11:15 06/16/20 11:14 Aspirin (ASA) 81 mg DAILY ORAL 03/22/20 09:00 05/06/20 08:59 Atorvastatin Calcium (Lipitor) 80 mg BEDTIME ORAL 03/18/20 21:00 06/16/20 20:59 03/22/20 20:52 Barium Sulfate (Varibar Honey) 250 ml NOW PRN RAD 03/21/20 15:45 03/24/20 15:38 Barium Sulfate (Varibar Champ) 240 ml NOW PRN RAD 03/21/20 15:45 03/24/20 15:38 Barium Sulfate (Varibar Pudding) 230 ml NOW PRN RAD 03/21/20 15:45 03/24/20 15:38 Barium Sulfate (Varibar Thin Liquid powder) 148 gm NOW PRN MC RAD 03/21/20 15:45 03/24/20 15:38 Clopidogrel Bisulfate (Plavix) 75 mg DAILY ORAL 03/18/20 09:00 04/17/20 08:59 03/18/20 10:23 Dexamethasone Sodium Phosphate (Decadron 4mg/ml vial) 6 mg DAILY IVP 03/18/20 11:00 03/27/20 09:01 03/23/20 08:32 Dextrose (Dextrose 50%) 25 ml Q30M PRN IV Hypoglycemia 03/18/20 11:00 06/16/20 10:59 Dextrose (Dextrose 50%) 50 ml Q30M PRN IV Hypoglycemia 03/18/20 11:00 06/16/20 10:59 Enoxaparin Sodium (Lovenox) 80 mg DAILY SUBQ 03/18/20 09:00 06/16/20 08:59 03/23/20 08:33 Famotidine (Pepcid) 20 mg BID ORAL 03/18/20 18:00 06/16/20 17:59 03/21/20 17:22 Gabapentin (Neurontin) 300 mg BID ORAL 03/21/20 18:00 04/20/20 17:59 03/21/20 17:22 Insulin Aspart (NovoLOG) BEFORE MEALS SUBQ 03/19/20 06:30 06/17/20 06:29 03/23/20 06:25 Magnesium Hydroxide (Mom) 30 ml HSPRN PRN ORAL Constipation 03/17/20 20:45 04/16/20 20:44 Meropenem 1 gm/ Sodium Chloride 55 ml @ 110 mls/hr Q12HR IVPB 03/21/20 21:00 03/26/20 20:59 03/23/20 08:33 Metoprolol Tartrate (Lopressor) 50 mg Q12HR ORAL 03/20/20 21:00 06/18/20 20:59 03/21/20 21:00 Metoprolol Tartrate 10 mg/ Dextrose 65 ml @ 130 mls/hr Q6HR IVPB 03/22/20 13:00 04/21/20 12:59 03/23/20 05:32 Nitroglycerin (Nitro-Bid) 1 inch TID@0600,1200,1800 TOPIC 03/23/20 06:00 04/22/20 05:59 03/23/20 06:24 Nitroglycerin (Ntg) 0.4 mg Q5M X 3 DOSES PRN SL Prn Chest Pain 03/17/20 20:45 04/16/20 20:44 Ondansetron HCl (Zofran) 4 mg Q6H PRN IVP Nausea & Vomiting 03/17/20 20:45 04/16/20 20:44 Potassium Chloride 40 meq/ Dextrose 1,020 ml @ 35 mls/hr Q24H IV 03/22/20 12:00 04/21/20 11:59 03/22/20 12:58 Remdesivir 100 mg/ Sodium Chloride 250 ml @ 250 mls/hr Q24H IV 03/23/20 16:00 03/26/20 16:59 Sertraline HCl (Zoloft) 100 mg DAILY ORAL 03/18/20 09:00 04/17/20 08:59 03/21/20 09:27 Trazodone HCl (Desyrel) 50 mg QHS ORAL 03/17/20 21:00 04/16/20 20:59 03/22/20 20:52 Vancomycin HCl (Vanco pharmacy to dose) 1 ea DAILY PRN MISC Per rx protocol 03/18/20 14:00 04/17/20 13:59 Assessment/Plan Assessment/Plan ASSESSMENT Acute hypoxemic respiratory failure likely due to COVID pneumonia and probable NSTEMI ( requiring NRM< now BiPAP) COVID-19 pneumonia Possible aspiration PNA Elevated troponin , probably due to demand, Possible NSTEMI PAF Lactic acidosis UTI , possible pyelo ( with history of prior pyelonephritis) Acute kidney injury on chronic kidney disease Hypertension with initial hypertensive urgency 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% Aortic stenosis PLAN OF CARE SDU droplet isolation COVID rapid and by PCR both positive on BiPAP ABG at 11 ,-noted keep on BiPAP sat 92-94% on monitor, titrate FiO2 to keep sat above 90% titrate settings further as needed low threshold for intubation steroids started on Remdesivir 03/22 full a/c with Lovenox, Proventil MDI prn abx -per ID BCX NGTD UCX E coli ESBL fup with inflammatory markers to access risk for cytokine storm CRP up to 27 on 03/19 , ferritin up to 460 on 03/19 Venous Duplex BLE NGT CXR 03/19 with new patchy right midlung and right base airspace process concerning for pneumonia SCX if able CXR 03/21 with worsening R lung consolidation CXR for this am pending swallow eval ? aspiration aspiration precautions repeat CXR 03/23 ECHO noted with rEF 40% , evidence of cardio on board DAPT with ASA and Plavix, BB, nitrate serial troponin-last down full a/c with Lovenox GI prophylaxis monitor volumes per cardio->no diuresis for now gentle IV hydration monitor volumes, avoid nephrotoxics creat trending down, clsoely monitor renal function and LFT while on remde sivivr abd US with echogenic kidneys, c/w probable medical renal disease supportive care case discussed and evaluated by supervising physician Suzette Crabtree NP Mar 23, 2020 10:08 See Grace MD Mar 23, 2020 15:30
[2020-03-23 12:00] VITALS: BP 114/66
--- NOTE | 2020-03-23 13:34 | Diagnostic Imaging Report ---
Indication: Shortness of breath Technique: One view of the chest Comparison: 03/21/2020 Findings: Again demonstrated are extensive bilateral interstitial and airspace infiltrates versus edema. Allowing for differences in positioning and exposure technique, this appears overall stable slightly worse on the left but perhaps minimally improved in the right perihilar region. The heart remains enlarged. There may be trace bilateral pleural effusions. Median sternotomy sutures are again demonstrated Impression: Extensive bilateral airspace and interstitial disease, possibly slightly improved on the right but worse on the left, extent overall not significantly changed, since exam of 2 days earlier
--- NOTE | 2020-03-23 14:32 | General Progress Note ---
Subjective ROS Limited/Unobtainable: Yes Allergies: Coded Allergies: No Known Allergies (Unverified , 03/17/20) Objective Last 24 Hour Vital Signs Date Time Temp Pulse Resp B/P (MAP) Pulse Ox O2 Delivery O2 Flow Rate FiO2 03/23/20 13:02 115/79 03/23/20 13:02 72 115/79 03/23/20 12:00 Non-Rebreather 15.0 03/23/20 12:00 96.4 92 54 114/66 (82) 92 03/23/20 08:34 72 115/79 03/23/20 08:11 72 53 93 100 03/23/20 08:00 15.0 03/23/20 08:00 Non-Rebreather 15.0 03/23/20 08:00 98.1 110 40 121/64 (83) 90 03/23/20 07:43 105 03/23/20 06:24 115/79 03/23/20 05:32 103 150/100 03/23/20 04:00 Non-Rebreather 15.0 03/23/20 04:00 98.1 117 20 129/81 (97) 96 03/23/20 04:00 15.0 03/23/20 03:41 112 03/23/20 00:03 109 140/99 03/23/20 00:00 Non-Rebreather 15.0 03/23/20 00:00 15.0 03/23/20 00:00 96.8 74 20 146/99 (115) 96 03/22/20 23:28 109 03/22/20 21:00 75 109/63 03/22/20 20:00 96.8 96 20 102/67 (79) 96 03/22/20 20:00 15.0 100 03/22/20 20:00 Non-Rebreather 15.0 03/22/20 19:53 96 Non-Rebreather 15.0 100 03/22/20 19:33 114 03/22/20 18:21 90 151/94 03/22/20 16:00 70 03/22/20 16:00 97.0 72 20 180/90 (120) 96 03/22/20 16:00 Non-Rebreather 15.0 03/22/20 15:02 71 180/114 Intake and Output 03/22/20 03/23/20 19:00 07:00 Intake Total 210 ml 755 ml Output Total 145 ml 250 ml Balance 65 ml 505 ml IV Total 210 ml 755 ml Output Urine Total 145 ml 250 ml Laboratory Tests 03/22/20 16:26: Arterial Blood pH 7.464H, Arterial Blood Partial Pressure CO2 22.9*L, Arterial Blood Partial Pressure O2 52.0L, Arterial Blood HCO3 16.1*L, Arterial Blood Oxygen Saturation 89.0*L, Arterial Blood Base Excess -5.4L, Tj Test Positive 03/23/20 03:45: White Blood Count 17.6H, Red Blood Count 4.94, Hemoglobin 15.4, Hematocrit 43.3, Mean Corpuscular Volume 88, Mean Corpuscular Hemoglobin 31.1H, Mean Corpuscular Hemoglobin Concent 35.5, Red Cell Distribution Width 13.8, Platelet Count 191, Mean Platelet Volume 6.4L, Neutrophils (%) (Auto) , Lymphocytes (%) (Auto) , Monocytes (%) (Auto) , Eosinophils (%) (Auto) , Basophils (%) (Auto) , Differential Total Cells Counted 100, Neutrophils % (Manual) 97H, Lymphocytes % (Manual) 1L, Monocytes % (Manual) 2, Eosinophils % (Manual) 0, Basophils % (Manual) 0, Band Neutrophils 0, Platelet Estimate Adequate, Platelet Morphology Normal, Red Blood Cell Morphology Normal, Sodium Level 154H, Potassium Level 4.2, Chloride Level 120H, Carbon Dioxide Level 16L, Anion Gap 18H, Blood Urea Nitrogen 48H, Creatinine 1.6H, Estimat Glomerular Filtration Rate 41.7, Glucose Level 127H, Calcium Level 8.7, Total Bilirubin 1.0, Direct Bilirubin 0.4H, Aspartate Amino Transf (AST/SGOT) 39H, Alanine Aminotransferase (ALT/SGPT) 40, Alkaline Phosphatase 76, Troponin I 1.094H, Pro-B-Type Natriuretic Peptide [Pending], Total Protein 6.6, Albumin 2.0L, Globulin 4.6, Albumin/Globulin Ratio 0.4L 03/23/20 08:30: Arterial Blood pH 7.343L, Arterial Blood Partial Pressure CO2 23.8*L, Arterial Blood Partial Pressure O2 58.1L, Arterial Blood HCO3 12.6*L, Arterial Blood Oxygen Saturation 88.1*L, Arterial Blood Base Excess -10.7*L, Tj Test Positive 03/23/20 11:16: Arterial Blood pH 7.332L, Arterial Blood Partial Pressure CO2 24.6*L, Arterial Blood Partial Pressure O2 59.8L, Arterial Blood HCO3 12.7*L, Arterial Blood Oxygen Saturation 88.3*L, Arterial Blood Base Excess -10.9*L, Tj Test Positive Height (Feet): 5 Height (Inches): 9.00 Weight (Pounds): 190 General Appearance: lethargic, confused, mild distress EENT: normal ENT inspection Neck: normal alignment Cardiovascular: regular rhythm Respiratory/Chest: crackles/rales Abdomen: non tender Edema: no edema noted Arm (L), no edema noted Arm (R), no edema noted Leg (L), no edema noted Leg (R), no edema noted Pedal (L), no edema noted Pedal (R), no edema noted 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 Assessment/Plan Problem List: (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 SNOMED: 170797077 (2) CHF (congestive heart failure) ICD Codes: I50.9 - Heart failure, unspecified SNOMED: 00790404 (3) Dehydration ICD Codes: E86.0 - Dehydration SNOMED: 18279555 (4) Respiratory failure ICD Codes: J96.90 - Respiratory failure, unspecified, unspecified whether with hypoxia or hypercapnia SNOMED: 967511496 (5) TUCKER (acute kidney injury) ICD Codes: N17.9 - Acute kidney failure, unspecified SNOMED: 5596693, 01400663 (6) Metabolic acidosis ICD Codes: E87.2 - Acidosis SNOMED: 13813490 (7) Aortic stenosis ICD Codes: I35.0 - Nonrheumatic aortic (valve) stenosis SNOMED: 79408225 (8) Sepsis ICD Codes: A41.9 - Sepsis, unspecified organism SNOMED: 81613940 (9) Non-ST elevated myocardial infarction ICD Codes: I21.4 - Non-ST elevation (NSTEMI) myocardial infarction SNOMED: 30494727 (10) Pyelonephritis ICD Codes: N12 - Tubulo-interstitial nephritis, not specified as acute or chronic SNOMED: 72330362 (11) Elevated troponin ICD Codes: R77.8 - Other specified abnormalities of plasma proteins SNOMED: 848026670, 184953270, 188410457 (12) COVID-19 ICD Codes: U07.1 - COVID-19 SNOMED: 805329854 (13) UTI (urinary tract infection) ICD Codes: N39.0 - Urinary tract infection, site not specified SNOMED: 54720548, 354567931, 697990171 Qualifiers: Qualified Codes: N39.0 - Urinary tract infection, site not specified (14) Dysphagia ICD Codes: R13.10 - Dysphagia, unspecified SNOMED: 30358133, 968199397 (15) Pneumonia due to COVID-19 virus ICD Codes: U07.1 - COVID-19; J12.89 - Other viral pneumonia Assessment/Plan: high trop, now on bipap,respdistress 03/23, infiltrates on cxr, cont rx for sepsis and covid and acute Mi, change to meropenam for esbl uti, dysphagia, puree, restart iv Miek Alexander MD Mar 23, 2020 14:32
[2020-03-23 16:00] VITALS: BP 125/97
[2020-03-23] MEDS ORDERED: Maintenance Dose:Remdesivir 100mg/NS 230ml x 4 Doses IV SCH ×2 (16:00)
[2020-03-23] MEDS ORDERED: dilTIAZem HCl 25mg/5ml Inj IVP SCH (18:30)
--- NOTE | 2020-03-23 19:13 | Infectious Diseases Prog Note ---
Assessment/Plan Assessment/Plan A) 1) esbl e.coli uti, sepsis, covid-19 virus infection, ? aspiration pna/hcap vs cap, hypoxia, leukocytosis, hx fevers 2) TUCKER, anemia, aortic stenosis, HTN, HLD, dementia, cri, nstemi, chf, cad 3) allergies - nkda, sh-neg, mar noted, [id number]-hphycngodsri, d/w RN 4) notes and records noted 5) orders reviewed P) 1) meropenem, vancomycin, dexamethasone, remdesivir started 2) d/w pharmacy about treatment and remdesivir 3) monitor labs and chest x-ray 4) O2 support, bipap 5) prognosis guarder 6) d/w pulmonary medicine Subjective Constitutional: Reports: fatigue, other - sob, on bipap; Denies: fever HEENT: Reports: congestion Respiratory: Reports: shortness of breath Cardiovascular: Denies: chest pain Gastrointestinal/Abdominal: Denies: nausea, vomiting, diarrhea Genitourinary: Reports: other - + condom catheter Neurologic: Reports: weakness, other - on bipap Psychiatric: Reports: other - NA Skin: Denies: rash Hematologic: Denies: bleeding Musculoskeletal: Reports: other - NA Allergies: Coded Allergies: No Known Allergies (Unverified , 03/17/20) Objective Last 24 Hour Vital Signs Date Time Temp Pulse Resp B/P (MAP) Pulse Ox O2 Delivery O2 Flow Rate FiO2 03/23/20 18:59 112 125/97 03/23/20 18:24 112 125/97 03/23/20 18:23 125/97 03/23/20 16:00 97.5 112 37 125/97 (106) 100 03/23/20 16:00 Non-Rebreather 15.0 03/23/20 16:00 100 03/23/20 15:10 110 03/23/20 15:05 117 36 100 100 03/23/20 13:02 115/79 03/23/20 13:02 72 115/79 03/23/20 12:03 95 03/23/20 12:00 Non-Rebreather 15.0 03/23/20 12:00 100 03/23/20 12:00 96.4 92 54 114/66 (82) 92 03/23/20 11:05 64 54 95 100 03/23/20 08:34 72 115/79 03/23/20 08:11 72 53 93 100 03/23/20 08:00 15.0 03/23/20 08:00 Non-Rebreather 15.0 03/23/20 08:00 98.1 110 40 121/64 (83) 90 03/23/20 07:43 105 03/23/20 07:00 91 Non-Rebreather 15.0 100 03/23/20 06:24 115/79 03/23/20 05:32 103 150/100 03/23/20 04:00 Non-Rebreather 15.0 03/23/20 04:00 98.1 117 20 129/81 (97) 96 03/23/20 04:00 15.0 03/23/20 03:41 112 03/23/20 00:03 109 140/99 03/23/20 00:00 Non-Rebreather 15.0 03/23/20 00:00 15.0 03/23/20 00:00 96.8 74 20 146/99 (115) 96 03/22/20 23:28 109 03/22/20 21:00 75 109/63 03/22/20 20:00 96.8 96 20 102/67 (79) 96 03/22/20 20:00 15.0 100 03/22/20 20:00 Non-Rebreather 15.0 03/22/20 19:53 96 Non-Rebreather 15.0 100 03/22/20 19:33 114 Height (Feet): 5 Height (Inches): 9.00 Weight (Pounds): 190 General Appearance: other - sob, on bipap HEENT: normocephalic, atraumatic, anicteric, supple, no JVD Respiratory/Chest: crackles/rales, rhonchi - bilaterally Cardiovascular: normal rate, regular rhythm, no gallop/murmur, no JVD Abdomen: normal bowel sounds, soft, non tender, no organomegaly, non distended Genitourinary: other - + condom catheter - urine cloudy Extremities: no cyanosis Skin: no rash 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 This has significantly worsened when compared to March 19, 2020. Follow chest radiograph recommended. Trace bilateral pleural effusions, which are mildly worsening. No pneumothorax. Cardiomegaly. Calcified aorta. Microbiology Date/Time Source Procedure Growth Status 03/17/20 22:12 Nasopharynx SARS-CoV-2 RdRp Gene Assay - Final Complete 03/17/20 20:14 Blood Blood Culture - Final NO GROWTH AFTER 5 DAYS Complete 03/17/20 19:55 Rectum VRE Culture - Final NO VANCOMYCIN RESISTANT ENTEROCOCCUS ... Complete 03/17/20 19:55 Urine,Clean Catch Urine Culture - Final Escherichia Coli - Esbl Complete Laboratory Tests Test 03/23/20 03:45 03/23/20 08:30 03/23/20 11:16 White Blood Count 17.6 K/UL (4.8-10.8) H Red Blood Count 4.94 M/UL (4.70-6.10) Hemoglobin 15.4 G/DL (14.2-18.0) Hematocrit 43.3 % (42.0-52.0) Mean Corpuscular Volume 88 FL (80-99) Mean Corpuscular Hemoglobin 31.1 PG (27.0-31.0) H Mean Corpuscular Hemoglobin Concent 35.5 G/DL (32.0-36.0) Red Cell Distribution Width 13.8 % (11.6-14.8) Platelet Count 191 K/UL (150-450) Mean Platelet Volume 6.4 FL (6.5-10.1) L Neutrophils (%) (Auto) % (45.0-75.0) Lymphocytes (%) (Auto) % (20.0-45.0) Monocytes (%) (Auto) % (1.0-10.0) Eosinophils (%) (Auto) % (0.0-3.0) Basophils (%) (Auto) % (0.0-2.0) Differential Total Cells Counted 100 Neutrophils % (Manual) 97 % (45-75) H Lymphocytes % (Manual) 1 % (20-45) L Monocytes % (Manual) 2 % (1-10) Eosinophils % (Manual) 0 % (0-3) Basophils % (Manual) 0 % (0-2) Band Neutrophils 0 % (0-8) Platelet Estimate Adequate Platelet Morphology Normal Red Blood Cell Morphology Normal Sodium Level 154 MMOL/L (136-145) H Potassium Level 4.2 MMOL/L (3.5-5.1) Chloride Level 120 MMOL/L (98-107) H Carbon Dioxide Level 16 MMOL/L (21-32) L Anion Gap 18 mmol/L (5-15) H Blood Urea Nitrogen 48 mg/dL (7-18) H Creatinine 1.6 MG/DL (0.55-1.30) H Estimat Glomerular Filtration Rate 41.7 mL/min (>60) Glucose Level 127 MG/DL (74-106) H Calcium Level 8.7 MG/DL (8.5-10.1) Total Bilirubin 1.0 MG/DL (0.2-1.0) Direct Bilirubin 0.4 MG/DL (0.0-0.3) H Aspartate Amino Transf (AST/SGOT) 39 U/L (15-37) H Alanine Aminotransferase (ALT/SGPT) 40 U/L (12-78) Alkaline Phosphatase 76 U/L (46-116) Troponin I 1.094 ng/mL (0.000-0.056) Pro-B-Type Natriuretic Peptide Pending Total Protein 6.6 G/DL (6.4-8.2) Albumin 2.0 G/DL (3.4-5.0) L Globulin 4.6 g/dL Albumin/Globulin Ratio 0.4 (1.0-2.7) L Arterial Blood pH 7.343 (7.350-7.450) 7.332 (7.350-7.450) Arterial Blood Partial Pressure CO2 23.8 mmHg (35.0-45.0) *L 24.6 mmHg (35.0-45.0) *L Arterial Blood Partial Pressure O2 58.1 mmHg (75.0-100.0) L 59.8 mmHg (75.0-100.0) L Arterial Blood HCO3 12.6 mmol/L (22.0-26.0) *L 12.7 mmol/L (22.0-26.0) *L Arterial Blood Oxygen Saturation 88.1 % (95-100) *L 88.3 % (95-100) *L Arterial Blood Base Excess -10.7 (-2-2) *L -10.9 (-2-2) *L Tj Test Positive Positive Current Medications Medications (Trade) Dose Ordered Sig/Blanquita Route PRN Reason Start Time Stop Time Status Last Admin Dose Admin Acetaminophen (Tylenol) 650 mg Q4H PRN ORAL Mild Pain (Pain Scale 1-3) 03/17/20 20:45 04/16/20 20:44 Acetaminophen (Tylenol) 650 mg Q4H PRN ORAL Temp >100.5 03/17/20 20:45 04/16/20 20:44 Albuterol Sulfate (Proventil MDI) 2 puff Q4H PRN INH Shortness of Breath 03/18/20 11:15 06/16/20 11:14 Aspirin (ASA) 81 mg DAILY ORAL 03/22/20 09:00 05/06/20 08:59 Atorvastatin Calcium (Lipitor) 80 mg BEDTIME ORAL 03/18/20 21:00 06/16/20 20:59 03/22/20 20:52 Barium Sulfate (Varibar Honey) 250 ml NOW PRN MC RAD 03/21/20 15:45 03/24/20 15:38 Barium Sulfate (Varibar [place]) 240 ml NOW PRN MC RAD 03/21/20 15:45 03/24/20 15:38 Barium Sulfate (Varibar Pudding) 230 ml NOW PRN MC RAD 03/21/20 15:45 03/24/20 15:38 Barium Sulfate (Varibar Thin Liquid powder) 148 gm NOW PRN MC RAD 03/21/20 15:45 03/24/20 15:38 Clopidogrel Bisulfate (Plavix) 75 mg DAILY ORAL 03/18/20 09:00 04/17/20 08:59 03/18/20 10:23 Dexamethasone Sodium Phosphate (Decadron 4mg/ml vial) 6 mg DAILY IVP 03/18/20 11:00 03/27/20 09:01 03/23/20 08:32 Dextrose (Dextrose 50%) 25 ml Q30M PRN IV Hypoglycemia 03/18/20 11:00 06/16/20 10:59 Dextrose (Dextrose 50%) 50 ml Q30M PRN IV Hypoglycemia 03/18/20 11:00 06/16/20 10:59 Diltiazem HCl (Cardizem) 20 mg ONCE IVP 03/23/20 18:30 03/23/20 20:30 03/23/20 18:59 Enoxaparin Sodium (Lovenox) 80 mg DAILY SUBQ 03/18/20 09:00 06/16/20 08:59 03/23/20 08:33 Famotidine (Pepcid) 20 mg BID ORAL 03/18/20 18:00 06/16/20 17:59 03/21/20 17:22 Gabapentin (Neurontin) 300 mg BID ORAL 03/21/20 18:00 04/20/20 17:59 03/21/20 17:22 Insulin Aspart (NovoLOG) BEFORE MEALS SUBQ 03/19/20 06:30 06/17/20 06:29 03/23/20 06:25 Magnesium Hydroxide (Mom) 30 ml HSPRN PRN ORAL Constipation 03/17/20 20:45 04/16/20 20:44 Meropenem 1 gm/ Sodium Chloride 55 ml @ 110 mls/hr Q12HR IVPB 03/21/20 21:00 03/26/20 20:59 03/23/20 08:33 Metoprolol Tartrate 10 mg/ Dextrose 65 ml @ 130 mls/hr Q6HR IVPB 03/22/20 13:00 04/21/20 12:59 03/23/20 18:24 Nitroglycerin (Nitro-Bid) 1 inch TID@0600,1200,1800 TOPIC 03/23/20 06:00 04/22/20 05:59 03/23/20 18:23 Nitroglycerin (Ntg) 0.4 mg Q5M X 3 DOSES PRN SL Prn Chest Pain 03/17/20 20:45 04/16/20 20:44 Ondansetron HCl (Zofran) 4 mg Q6H PRN IVP Nausea & Vomiting 03/17/20 20:45 04/16/20 20:44 Potassium Chloride 40 meq/ Dextrose 1,020 ml @ 100 mls/hr [id number] IV 03/22/20 12:00 04/21/20 11:59 03/23/20 13:01 Remdesivir 100 mg/ Sodium Chloride 250 ml @ 250 mls/hr Q24H IV 03/23/20 16:00 03/26/20 16:59 03/23/20 16:42 Sertraline HCl (Zoloft) 100 mg DAILY ORAL 03/24/20 09:00 04/17/20 08:59 Trazodone HCl (Desyrel) 50 mg QHS ORAL 03/17/20 21:00 04/16/20 20:59 03/22/20 20:52 Vancomycin HCl (Vanco pharmacy to dose) 1 ea DAILY PRN MISC Per rx protocol 03/18/20 14:00 04/17/20 13:59 Bety Steen MD Mar 23, 2020 19:13
[2020-03-23 20:00] VITALS: BP 115/61
[2020-03-23] MEDS: TraZODone 50mg tab ORAL SCH (20:14)
[2020-03-23] MEDS: Atorvastatin 80mg tab ORAL SCH (20:14)
--- NOTE | 2020-03-23 22:29 | Cardiology Progress Note ---
Subjective DATE OF SERVICE: Mar 23, 2020 Condition remains critical - prognosis guarded Troponin peaked above 7; now decreased in 1.6 range. Monitor sinus with PAC's - has paroxysms of rapid atrial fib/flutter 2D Echo: EF 40% with moderate aortic stenosis (1.2 cm2) and moderate mitral and tricuspid regurg. Patient remains with baseline confusion. He is unable to take oral meds today ABG (03/21) 7.41/30/86 Objective Last 24 Hour Vital Signs Date Time Temp Pulse Resp B/P (MAP) Pulse Ox O2 Delivery O2 Flow Rate FiO2 03/23/20 20:00 100 03/23/20 20:00 Non-Rebreather 15.0 03/23/20 20:00 97.0 105 34 115/61 (79) 100 03/23/20 20:00 112 03/23/20 19:56 84 34 100 100 03/23/20 19:25 100 Bi-Pap 100 03/23/20 18:59 112 125/97 03/23/20 18:24 112 125/97 03/23/20 18:23 125/97 03/23/20 16:00 97.5 112 37 125/97 (106) 100 03/23/20 16:00 Non-Rebreather 15.0 03/23/20 16:00 100 03/23/20 15:10 110 03/23/20 15:05 117 36 100 100 03/23/20 13:02 115/79 03/23/20 13:02 72 115/79 03/23/20 12:03 95 03/23/20 12:00 Non-Rebreather 15.0 03/23/20 12:00 100 03/23/20 12:00 96.4 92 54 114/66 (82) 92 03/23/20 11:05 64 54 95 100 03/23/20 08:34 72 115/79 03/23/20 08:11 72 53 93 100 03/23/20 08:00 15.0 03/23/20 08:00 Non-Rebreather 15.0 03/23/20 08:00 98.1 110 40 121/64 (83) 90 03/23/20 07:43 105 03/23/20 07:00 91 Non-Rebreather 15.0 100 03/23/20 06:24 115/79 03/23/20 05:32 103 150/100 03/23/20 04:00 Non-Rebreather 15.0 03/23/20 04:00 98.1 117 20 129/81 (97) 96 03/23/20 04:00 15.0 03/23/20 03:41 112 03/23/20 00:03 109 140/99 03/23/20 00:00 Non-Rebreather 15.0 03/23/20 00:00 15.0 03/23/20 00:00 96.8 74 20 146/99 (115) 96 03/22/20 23:28 109 ROS: no change from 03/17/20 HEENT: normal ENT inspection RHYTHM: NSR, ST LUNGS: bilat. rhonchi and rales CARDIAC: normal rate, regular rhythm, normal S1 and S2, normal peripheral pulse s, systolic murmur - 1/6 systolic ej murmur at base ABDOMEN: normal bowel sounds, non tender, no organomegaly EXTREMITIES: non-tender Laboratory Tests Test 03/23/20 03:45 03/23/20 08:30 03/23/20 11:16 White Blood Count 17.6 K/UL (4.8-10.8) H Red Blood Count 4.94 M/UL (4.70-6.10) Hemoglobin 15.4 G/DL (14.2-18.0) Hematocrit 43.3 % (42.0-52.0) Mean Corpuscular Volume 88 FL (80-99) Mean Corpuscular Hemoglobin 31.1 PG (27.0-31.0) H Mean Corpuscular Hemoglobin Concent 35.5 G/DL (32.0-36.0) Red Cell Distribution Width 13.8 % (11.6-14.8) Platelet Count 191 K/UL (150-450) Mean Platelet Volume 6.4 FL (6.5-10.1) L Neutrophils (%) (Auto) % (45.0-75.0) Lymphocytes (%) (Auto) % (20.0-45.0) Monocytes (%) (Auto) % (1.0-10.0) Eosinophils (%) (Auto) % (0.0-3.0) Basophils (%) (Auto) % (0.0-2.0) Differential Total Cells Counted 100 Neutrophils % (Manual) 97 % (45-75) H Lymphocytes % (Manual) 1 % (20-45) L Monocytes % (Manual) 2 % (1-10) Eosinophils % (Manual) 0 % (0-3) Basophils % (Manual) 0 % (0-2) Band Neutrophils 0 % (0-8) Platelet Estimate Adequate Platelet Morphology Normal Red Blood Cell Morphology Normal Sodium Level 154 MMOL/L (136-145) H Potassium Level 4.2 MMOL/L (3.5-5.1) Chloride Level 120 MMOL/L (98-107) H Carbon Dioxide Level 16 MMOL/L (21-32) L Anion Gap 18 mmol/L (5-15) H Blood Urea Nitrogen 48 mg/dL (7-18) H Creatinine 1.6 MG/DL (0.55-1.30) H Estimat Glomerular Filtration Rate 41.7 mL/min (>60) Glucose Level 127 MG/DL (74-106) H Calcium Level 8.7 MG/DL (8.5-10.1) Total Bilirubin 1.0 MG/DL (0.2-1.0) Direct Bilirubin 0.4 MG/DL (0.0-0.3) H Aspartate Amino Transf (AST/SGOT) 39 U/L (15-37) H Alanine Aminotransferase (ALT/SGPT) 40 U/L (12-78) Alkaline Phosphatase 76 U/L (46-116) Troponin I 1.094 ng/mL (0.000-0.056) Pro-B-Type Natriuretic Peptide Pending Total Protein 6.6 G/DL (6.4-8.2) Albumin 2.0 G/DL (3.4-5.0) L Globulin 4.6 g/dL Albumin/Globulin Ratio 0.4 (1.0-2.7) L Arterial Blood pH 7.343 (7.350-7.450) 7.332 (7.350-7.450) Arterial Blood Partial Pressure CO2 23.8 mmHg (35.0-45.0) *L 24.6 mmHg (35.0-45.0) *L Arterial Blood Partial Pressure O2 58.1 mmHg (75.0-100.0) L 59.8 mmHg (75.0-100.0) L Arterial Blood HCO3 12.6 mmol/L (22.0-26.0) *L 12.7 mmol/L (22.0-26.0) *L Arterial Blood Oxygen Saturation 88.1 % (95-100) *L 88.3 % (95-100) *L Arterial Blood Base Excess -10.7 (-2-2) *L -10.9 (-2-2) *L Tj Test Positive Positive Assessment/Plan Assessment/Plan Acute myocardial infarcton Respiratory failure Covid 19 PNA Chronic systolic and diastolic CHF Paroxysmal atrial arrhythmias with rapid atrial flutter now. Acute kidney injury Hypoxia Dehydration/hypernatremia Degenerative aortic valve disease with stenosis IVF - hypotonic Antiplatelet therapy Beta blockade - by IV route for now. Nitrates added topically for now. Anti-virals Full anticoagulation Steroids per ID Oxygen suppl Monitor volume status and renal function Place NGtube for oral meds and ltd nutrition IV cardizem given now for rate control Joel Rowe MD Mar 23, 2020 22:29
[2020-03-24] VITALS: BP 127/71
[2020-03-24] MEDS: Metoprolol Tartrate 10 MG in D5W 55 ML IVPB SCH ×2 (00:32→06:00)
[2020-03-24 04:00] VITALS: BP 138/80
[2020-03-24 05:00] LABS: HEMATOCRIT 47.2 % (42.0-52.0); HEMOGLOBIN 16.1 G/DL (14.2-18.0); MEAN CORPUSCULAR VOLUME 90 FL (80-99); PLATELET COUNT 157 K/UL (150-450); RED BLOOD COUNT 5.26 M/UL (4.70-6.10); RED CELL DISTRIBUTION WIDTH 14.6 % (11.6-14.8); WHITE BLOOD COUNT 13.7 K/UL (4.8-10.8)
[2020-03-24] MEDS: dilTIAZem HCl 30mg tab NG SCH ×2 (05:42)
[2020-03-24] MEDS: NovoLOG Insulin Flexpen SUBQ SCH (05:48)
[2020-03-24 05:55] LABS: ALANINE AMINOTRANSFERASE 82 U/L (12-78); ALBUMIN 2.2 G/DL (3.4-5.0); ALBUMIN/GLOBULIN RATIO 0.5 (1.0-2.7); ALKALINE PHOSPHATASE 96 U/L (46-116); ASPARTATE AMINO TRANSFERASE 273 U/L (15-37); BILIRUBIN,DIRECT 0.4 MG/DL (0.0-0.3); BILIRUBIN,TOTAL 1.2 MG/DL (0.2-1.0); BLOOD UREA NITROGEN 68 mg/dL (7-18); CALCIUM 8.9 MG/DL (8.5-10.1); CARBON DIOXIDE 18 MMOL/L (21-32); CHLORIDE 123 MMOL/L (98-107); CREATININE 2.1 MG/DL (0.55-1.30); POTASSIUM 4.8 MMOL/L (3.5-5.1); SODIUM 156 MMOL/L (136-145)
[2020-03-24] MEDS: Nitroglycerin 2% oint pkt TOPIC SCH (06:00)
[2020-03-24 08:00] VITALS: BP 134/93
[2020-03-24] MEDS: Meropenem 1gm/NS 55ml IVPB SCH ×2 (08:44)
[2020-03-24] MEDS: Enoxaparin 80mg Inj SUBQ SCH (08:46)
[2020-03-24] MEDS: Gabapentin 300 MG/6 ML Soln ORAL SCH (08:47)
[2020-03-24] MEDS: Aspirin Baby 81mg ORAL SCH (08:47)
[2020-03-24] MEDS ORDERED: Sertraline 100mg tab ORAL SCH (09:00)
--- NOTE | 2020-03-24 10:07 | Pulmonology Progress Note ---
Subjective ROS Limited/Unobtainable: Yes Constitutional: Reports: fatigue, other - sob, on bipap; Denies: fever Gastrointestinal/Abdominal: Denies: nausea, vomiting, diarrhea Psychiatric: Reports: other - NA Skin: Denies: rash Musculoskeletal: Reports: other - NA Allergies: Coded Allergies: No Known Allergies (Unverified , 03/17/20) Subjective remains on BiPAP 23/11 FiO2 100% sat 95-97% on monitor no fevers, leukocytosis trending down started on remdesivir 03/22 , creat up to 2.1, AST and ALT up on IVF CXR 03/23 with extensive BL infiltrates troponin down to 1.09 remains in isolation denies CP, Objective Last 24 Hour Vital Signs Date Time Temp Pulse Resp B/P (MAP) Pulse Ox O2 Delivery O2 Flow Rate FiO2 03/24/20 08:13 96 Bi-Pap 100 03/24/20 08:00 100 03/24/20 08:00 Bi-pap 03/24/20 08:00 96.3 58 47 134/93 (107) 96 03/24/20 07:56 58 03/24/20 07:30 59 15 96 96 03/24/20 06:00 56 124/85 03/24/20 05:42 56 124/85 03/24/20 04:00 100 03/24/20 04:00 Non-Rebreather 15.0 03/24/20 04:00 98.1 73 32 138/80 (99) 100 03/24/20 03:41 56 03/24/20 03:15 78 22 96 100 03/24/20 00:32 96 127/71 03/24/20 00:00 96.6 96 37 127/71 (89) 100 03/24/20 00:00 100 03/24/20 00:00 96 127/71 03/24/20 00:00 Non-Rebreather 15.0 03/23/20 23:29 96 03/23/20 20:00 100 03/23/20 20:00 Non-Rebreather 15.0 03/23/20 20:00 97.0 105 34 115/61 (79) 100 03/23/20 20:00 112 03/23/20 19:56 84 34 100 100 03/23/20 19:25 100 Bi-Pap 100 03/23/20 18:59 112 125/97 03/23/20 18:24 112 125/97 03/23/20 18:23 125/97 03/23/20 16:00 97.5 112 37 125/97 (106) 100 03/23/20 16:00 Non-Rebreather 15.0 03/23/20 16:00 100 03/23/20 15:10 110 03/23/20 15:05 117 36 100 100 03/23/20 13:02 115/79 03/23/20 13:02 72 115/79 03/23/20 12:03 95 03/23/20 12:00 Non-Rebreather 15.0 03/23/20 12:00 100 03/23/20 12:00 96.4 92 54 114/66 (82) 92 03/23/20 11:05 64 54 95 100 Intake and Output 03/23/20 03/24/20 18:59 06:59 Intake Total 365 ml 820 ml Output Total 600 ml Balance 365 ml 220 ml IV Total 365 ml 820 ml Output Urine Total 600 ml # Voids 1 Objective General Appearance: alert, responsive , in some resp distress, on BiPAP 16/8 FiO2 100% Lines, tubes and drains: peripheral HEENT: normocephalic, atraumatic, anicteric, PERRL, O2 via BiPAP mask Neck: supple Respiratory/Chest: few rhonchi on the R Cardiovascular/Chest: normal peripheral pulses, SB in high 50th with 1 st degree AV block Abdomen: normal bowel sounds, non tender, soft Extremities: no calf tenderness, normal capillary refill, BL foot SYME procedure Skin Exam: warm/dry Neurologic: abnormal gait, awake, responsive Musculoskeletal: atrophy BLE Laboratory Tests 03/23/20 11:16: Arterial Blood pH 7.332L, Arterial Blood Partial Pressure CO2 24.6*L, Arterial Blood Partial Pressure O2 59.8L, Arterial Blood HCO3 12.7*L, Arterial Blood Oxygen Saturation 88.3*L, Arterial Blood Base Excess -10.9*L, Tj Test Positiv e 03/24/20 03:31: White Blood Count 13.7H, Red Blood Count 5.26, Hemoglobin 16.1, Hematocrit 47.2, Mean Corpuscular Volume 90, Mean Corpuscular Hemoglobin 30.6, Mean Corpuscular Hemoglobin Concent 34.1, Red Cell Distribution Width 14.6, Platelet Count 157, Mean Platelet Volume 7.5, Neutrophils (%) (Auto) , Lymphocytes (%) (Auto) , Monocytes (%) (Auto) , Eosinophils (%) (Auto) , Basophils (%) (Auto) , Differential Total Cells Counted 100, Neutrophils % (Manual) 95H, Lymphocytes % (Manual) 1L, Monocytes % (Manual) 4, Eosinophils % (Manual) 0, Basophils % (Manual) 0, Band Neutrophils 0, Platelet Estimate Adequate, Platelet Morphology Normal, Red Blood Cell Morphology Normal, Sodium Level 156H, Potassium Level 4.8, Chloride Level 123H, Carbon Dioxide Level 18L, Blood Urea Nitrogen 68H, Creatinine 2.1H, Estimat Glomerular Filtration Rate 30.5, Glucose Level 184H, Calcium Level 8.9, Total Bilirubin 1.2H, Direct Bilirubin 0.4H, Aspartate Amino Transf (AST/SGOT) 273H, Alanine Aminotransferase (ALT/SGPT) 82H, Alkaline Phosphatase 96, Total Protein 6.7, Albumin 2.2L, Globulin 4.5, Albumin/Globulin Ratio 0.5L Current Medications Medications (Trade) Dose Ordered Sig/Blanquita Route PRN Reason Start Time Stop Time Status Last Admin Dose Admin Acetaminophen (Tylenol) 650 mg Q4H PRN ORAL Mild Pain (Pain Scale 1-3) 03/17/20 20:45 04/16/20 20:44 Acetaminophen (Tylenol) 650 mg Q4H PRN ORAL Temp >100.5 03/17/20 20:45 04/16/20 20:44 Albuterol Sulfate (Proventil MDI) 2 puff Q4H PRN INH Shortness of Breath 03/18/20 11:15 06/16/20 11:14 Aspirin (ASA) 81 mg DAILY ORAL 03/22/20 09:00 05/06/20 08:59 Atorvastatin Calcium (Lipitor) 80 mg BEDTIME ORAL 03/18/20 21:00 06/16/20 20:59 03/22/20 20:52 Barium Sulfate (Varibar Honey) 250 ml NOW PRN MC RAD 03/21/20 15:45 03/24/20 15:38 Barium Sulfate (Varibar [place]) 240 ml NOW PRN MC RAD 03/21/20 15:45 03/24/20 15:38 Barium Sulfate (Varibar Pudding) 230 ml NOW PRN RAD 03/21/20 15:45 03/24/20 15:38 Barium Sulfate (Varibar Thin Liquid powder) 148 gm NOW PRN RAD 03/21/20 15:45 03/24/20 15:38 Clopidogrel Bisulfate (Plavix) 75 mg DAILY ORAL 03/18/20 09:00 04/17/20 08:59 03/18/20 10:23 Dexamethasone Sodium Phosphate (Decadron 4mg/ml vial) 6 mg DAILY IVP 03/18/20 11:00 03/27/20 09:01 03/24/20 08:44 Dextrose (Dextrose 50%) 25 ml Q30M PRN IV Hypoglycemia 03/18/20 11:00 06/16/20 10:59 Dextrose (Dextrose 50%) 50 ml Q30M PRN IV Hypoglycemia 03/18/20 11:00 06/16/20 10:59 Diltiazem HCl (Cardizem Tab) 30 mg EVERY 6 HOURS NG 03/24/20 00:00 04/23/20 00:00 Enoxaparin Sodium (Lovenox) 80 mg DAILY SUBQ 03/18/20 09:00 06/16/20 08:59 03/24/20 08:46 Famotidine (Pepcid) 20 mg BID ORAL 03/18/20 18:00 06/16/20 17:59 03/21/20 17:22 Gabapentin (Neurontin) 300 mg BID ORAL 03/21/20 18:00 04/20/20 17:59 03/21/20 17:22 Insulin Aspart (NovoLOG) BEFORE MEALS SUBQ 03/19/20 06:30 06/17/20 06:29 03/23/20 06:25 Magnesium Hydroxide (Mom) 30 ml HSPRN PRN ORAL Constipation 03/17/20 20:45 04/16/20 20:44 Meropenem 1 gm/ Sodium Chloride 55 ml @ 110 mls/hr Q12HR IVPB 03/21/20 21:00 03/26/20 20:59 03/24/20 08:44 Metoprolol Tartrate 10 mg/ Dextrose 65 ml @ 130 mls/hr Q6HR IVPB 03/22/20 13:00 04/21/20 12:59 03/24/20 00:32 Nitroglycerin (Nitro-Bid) 1 inch TID@0600,1200,1800 TOPIC 03/23/20 06:00 04/22/20 05:59 03/23/20 18:23 Nitroglycerin (Ntg) 0.4 mg Q5M X 3 DOSES PRN SL Prn Chest Pain 03/17/20 20:45 04/16/20 20:44 Ondansetron HCl (Zofran) 4 mg Q6H PRN IVP Nausea & Vomiting 03/17/20 20:45 04/16/20 20:44 Potassium Chloride 40 meq/ Dextrose 1,020 ml @ 100 mls/hr [id number] IV 03/22/20 12:00 04/21/20 11:59 03/24/20 02:37 Sertraline HCl (Zoloft) 100 mg DAILY ORAL 03/24/20 09:00 04/17/20 08:59 Trazodone HCl (Desyrel) 50 mg QHS ORAL 03/17/20 21:00 04/16/20 20:59 03/22/20 20:52 Vancomycin HCl (Vanco pharmacy to dose) 1 ea DAILY PRN MISC Per rx protocol 03/18/20 14:00 04/17/20 13:59 Assessment/Plan Assessment/Plan ASSESSMENT Acute hypoxemic respiratory failure likely due to COVID pneumonia and probable NSTEMI ( requiring NRM< now BiPAP) COVID-19 pneumonia Possible aspiration PNA Elevated troponin , probably due to demand, Possible NSTEMI PAF Lactic acidosis UTI , possible pyelo ( with history of prior pyelonephritis) Acute kidney injury on chronic kidney disease Hypertension with initial hypertensive urgency 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% Aortic stenosis PLAN OF CARE SDU droplet isolation COVID rapid and by PCR both positive on BiPAP ABG at 11 ,-noted keep on BiPAP titrate FiO2 to keep sat above 90% will check ABG now titrate settings further as needed low threshold for intubation steroids started on Remdesivir 03/22 creat up to 2.1, AST 273, ALT 82 discussed with ID - will stop full a/c with Lovenox, Proventil MDI prn abx -per ID BCX NGTD UCX E coli ESBL fup with inflammatory markers to access risk for cytokine storm CRP up to 27 on 03/19 , ferritin up to 460 on 12/10 Venous Duplex BLE NGT CXR 03/19 with new patchy right midlung and right base airspace process concerning for pneumonia SCX if able CXR 03/21 with worsening R lung consolidation CXR 03/23 with extensive BL infiltrates swallow eval ? aspiration aspiration precautions repeat CXR 03/23 ECHO noted with rEF 40% , evidence of cardio on board DAPT with ASA and Plavix, BB, nitrate serial troponin-last down full a/c with Lovenox GI prophylaxis monitor volumes per cardio->no diuresis for now gentle IV hydration monitor volumes, avoid nephrotoxics creat trending down, clsoely monitor renal function and LFT while on remdesivivr abd US with echogenic kidneys, c/w probable medical renal disease supportive care case discussed and evaluated by supervising physician Suzette Crabtree NP Mar 24, 2020 10:06 See Grace MD Mar 24, 2020 21:15
[2020-03-24] MEDS ORDERED: Tubing IV Secondary IV ONE ×2 (10:17)
[2020-03-24] MEDS ORDERED: NS 275ml ONE (10:17)
--- NOTE | 2020-03-24 12:00 | Emergency Room Report ---
Physical Exam Call for CODE BLUE Patient was on BiPAP. He became asystolic. CPR was started. Last 24 Hour Vital Signs Date Time Temp Pulse Resp B/P (MAP) Pulse Ox O2 Delivery O2 Flow Rate FiO2 03/24/20 08:13 96 Bi-Pap 100 03/24/20 08:00 100 03/24/20 08:00 Bi-pap 03/24/20 08:00 96.3 58 47 134/93 (107) 96 03/24/20 07:56 58 03/24/20 07:30 59 15 96 96 03/24/20 06:00 56 124/85 03/24/20 05:42 56 124/85 03/24/20 04:00 100 03/24/20 04:00 Non-Rebreather 15.0 03/24/20 04:00 98.1 73 32 138/80 (99) 100 03/24/20 03:41 56 03/24/20 03:15 78 22 96 100 03/24/20 00:32 96 127/71 03/24/20 00:00 96.6 96 37 127/71 (89) 100 03/24/20 00:00 100 03/24/20 00:00 96 127/71 03/24/20 00:00 Non-Rebreather 15.0 03/23/20 23:29 96 03/23/20 20:00 100 03/23/20 20:00 Non-Rebreather 15.0 03/23/20 20:00 97.0 105 34 115/61 (79) 100 03/23/20 20:00 112 03/23/20 19:56 84 34 100 100 03/23/20 19:25 100 Bi-Pap 100 03/23/20 18:59 112 125/97 03/23/20 18:24 112 125/97 03/23/20 18:23 125/97 03/23/20 16:00 97.5 112 37 125/97 (106) 100 03/23/20 16:00 Non-Rebreather 15.0 03/23/20 16:00 100 03/23/20 15:10 110 03/23/20 15:05 117 36 100 100 03/23/20 13:02 115/79 03/23/20 13:02 72 115/79 03/23/20 12:03 95 03/23/20 12:00 Non-Rebreather 15.0 03/23/20 12:00 100 03/23/20 12:00 96.4 92 54 114/66 (82) 92 Sp02 EP Interpretation: reviewed, abnormal - Interpreted as low by me General Appearance: other - Unresponsive, Chronically Ill Eyes: bilateral eye other - Pupils unreactive ENT: dry mucus membranes Neck: other - Rigid flexion Respiratory: other - No respirations spontaneously Cardiovascular #1: other - Pulses with CPR leg Cardiovascular #2: 1+ carotid (L) Gastrointestinal: normal inspection Genitourinary: other - Condom catheter Musculoskeletal: other - Contractures and bilateral foot amputations Neurologic: other - Unresponsive Psychiatric: other - Unresponsive Skin: warm/dry Critical Care Time Critical Care Time CODE BLUE was called at 958. When I arrived CPR was being performed. I supervised this. The patient was in asystole. Epinephrine was administered. The patient was intubated by me. There were 2 attempts because of lack of adequate visualization of the vocal cords on the first time with neck rigidity. Epinephrine was administered 3 more times. The patient had an organized rhythm but no pulses. At 1 point there appeared to be cardiac activity however no pulses were palpated or heard with Doppler. Patient with PEA - patient demonstrates cardiopulmonary unresponsiveness. Code called and patient pronounced at 10:18. After pronouncement, there was some question whether there were pulses. No pulses were present. Intubation Intubation : Consent: Emergent Intubation Method: orotracheal Tube Size (cm): 7.5 - 24 Medications: Other - None Breath Sounds after Intubation: equal Intubation Complications: no complications Post Intubation Xray: No Attempts: Other - To Medical Decision Making Diagnostic Impression: Primary Impression: Cardiopulmonary arrest Additional Impression: Pneumonia due to COVID-19 virus ER Course The patient was on BiPAP. Asystole was noted on the monitor. Please see CODE BLUE and intubation reports. Ultimately patient demonstrated cardiopulmonary unresponsiveness with: PEA. The code was terminated at 1018 and the patient was pronounced. Rhythm Strip Diag. Results EP Interpretation: yes Rhythm: other - Asystole Other Impression Various rhythms with rate anywhere from 40-80 without pulses. Status: worsened Disposition: Condition: Referrals: Mike Alexander MD (PCP) Joel Peck MD Mar 24, 2020 12:00
--- NOTE | 2020-03-24 18:57 | Cardiology Progress Note ---
Subjective DATE OF SERVICE: Mar 24, 2020 0900 Condition remains critical - prognosis guarded Troponin peaked above 7; now decreased in 1.6 range. Monitor sinus mat and sinus rhythm with 1st degree AV block 2D Echo: EF 40% with moderate aortic stenosis (1.2 cm2) and moderate mitral and tricuspid regurg. Patient remains with baseline confusion. He is unable to take oral meds; NGtube could not be inserted by RN. ABG (03/21) 7.41/86 Objective Last 24 Hour Vital Signs Date Time Temp Pulse Resp B/P (MAP) Pulse Ox O2 Delivery O2 Flow Rate FiO2 03/24/20 08:13 96 Bi-Pap 100 03/24/20 08:00 100 03/24/20 08:00 Bi-pap 03/24/20 08:00 96.3 58 47 134/93 (107) 96 03/24/20 07:56 58 03/24/20 07:30 59 15 96 96 03/24/20 06:00 56 124/85 03/24/20 05:42 56 124/85 03/24/20 04:00 100 03/24/20 04:00 Non-Rebreather 15.0 03/24/20 04:00 98.1 73 32 138/80 (99) 100 03/24/20 03:41 56 03/24/20 03:15 78 22 96 100 03/24/20 00:32 96 127/71 03/24/20 00:00 96.6 96 37 127/71 (89) 100 03/24/20 00:00 100 03/24/20 00:00 96 127/71 03/24/20 00:00 Non-Rebreather 15.0 03/23/20 23:29 96 03/23/20 20:00 100 03/23/20 20:00 Non-Rebreather 15.0 03/23/20 20:00 97.0 105 34 115/61 (79) 100 03/23/20 20:00 112 03/23/20 19:56 84 34 100 100 03/23/20 19:25 100 Bi-Pap 100 03/23/20 18:59 112 125/97 ROS: no change from 03/17/20 HEENT: normal ENT inspection RHYTHM: NSR, ST LUNGS: bilat. rhonchi and rales CARDIAC: normal rate, regular rhythm, normal S1 and S2, normal peripheral pulses, systolic murmur - 1/6 systolic ej murmur at base ABDOMEN: normal bowel sounds, non tender, no organomegaly EXTREMITIES: non-tender Laboratory Tests Test 03/24/20 03:31 White Blood Count 13.7 K/UL (4.8-10.8) H Red Blood Count 5.26 M/UL (4.70-6.10) Hemoglobin 16.1 G/DL (14.2-18.0) Hematocrit 47.2 % (42.0-52.0) Mean Corpuscular Volume 90 FL (80-99) Mean Corpuscular Hemoglobin 30.6 PG (27.0-31.0) Mean Corpuscular Hemoglobin Concent 34.1 G/DL (32.0-36.0) Red Cell Distribution Width 14.6 % (11.6-14.8) Platelet Count 157 K/UL (150-450) Mean Platelet Volume 7.5 FL (6.5-10.1) Neutrophils (%) (Auto) % (45.0-75.0) Lymphocytes (%) (Auto) % (20.0-45.0) Monocytes (%) (Auto) % (1.0-10.0) Eosinophils (%) (Auto) % (0.0-3.0) Basophils (%) (Auto) % (0.0-2.0) Differential Total Cells Counted 100 Neutrophils % (Manual) 95 % (45-75) H Lymphocytes % (Manual) 1 % (20-45) L Monocytes % (Manual) 4 % (1-10) Eosinophils % (Manual) 0 % (0-3) Basophils % (Manual) 0 % (0-2) Band Neutrophils 0 % (0-8) Platelet Estimate Adequate Platelet Morphology Normal Red Blood Cell Morphology Normal Sodium Level 156 MMOL/L (136-145) H Potassium Level 4.8 MMOL/L (3.5-5.1) Chloride Level 123 MMOL/L (98-107) H Carbon Dioxide Level 18 MMOL/L (21-32) L Blood Urea Nitrogen 68 mg/dL (7-18) H Creatinine 2.1 MG/DL (0.55-1.30) H Estimat Glomerular Filtration Rate 30.5 mL/min (>60) Glucose Level 184 MG/DL (74-106) H Calcium Level 8.9 MG/DL (8.5-10.1) Total Bilirubin 1.2 MG/DL (0.2-1.0) H Direct Bilirubin 0.4 MG/DL (0.0-0.3) H Aspartate Amino Transf (AST/SGOT) 273 U/L (15-37) H Alanine Aminotransferase (ALT/SGPT) 82 U/L (12-78) H Alkaline Phosphatase 96 U/L (46-116) Total Protein 6.7 G/DL (6.4-8.2) Albumin 2.2 G/DL (3.4-5.0) L Globulin 4.5 g/dL Albumin/Globulin Ratio 0.5 (1.0-2.7) L Assessment/Plan Assessment/Plan Acute myocardial infarcton Respiratory failure Covid 19 PNA Chronic systolic and diastolic CHF Paroxysmal atrial arrhythmias with rapid atrial flutter now converted to sinus mat. Acute kidney injury Hypoxia Dehydration/hypernatremia Degenerative aortic valve disease with stenosis IVF - hypotonic Antiplatelet therapy Beta blockade - by IV route for now- with hold parameters for low heart rates. Nitrates added topically for now. Anti-virals Full anticoagulation Steroids per ID Oxygen suppl Monitor volume status and renal function GI consult to place NGtube for oral meds and ltd nutrition Joel Rowe MD Mar 24, 2020 18:57
== END 2020-03-24 10:18 | disposition expired | DRG 871 ==
LOC: EDBD 18:17 → EMR 19:28 → 2W 20:02 → EDBEDREQSVC 20:35 → EDBEDREQ 20:35 → EDBEDREQSVC 23:31 → EDBEDREQ 23:31 → 2W 03-19 12:57
DX: A41.9 Sepsis, unspecified organism (principal); U07.1 COVID-19; J12.89 Other viral pneumonia; I21.4 Non-ST elevation (NSTEMI) myocardial infarction; I50.33 Acute on chronic diastolic (congestive) heart failure; J96.01 Acute respiratory failure with hypoxia; J69.0 Pneumonitis due to inhalation of food and vomit; I13.0 Hypertensive heart and chronic kidney disease with heart failure and stage 1 through stage 4 chronic kidney disease, or unspecified chronic kidney disease; N17.9 Acute kidney failure, unspecified; N39.0 Urinary tract infection, site not specified; I48.92 Unspecified atrial flutter; E87.0 Hyperosmolality and hypernatremia; N18.9 Chronic kidney disease, unspecified; I25.10 Atherosclerotic heart disease of native coronary artery without angina pectoris; Z95.1 Presence of aortocoronary bypass graft; Z86.73 Personal history of transient ischemic attack (TIA), and cerebral infarction without residual deficits; F32.9 Major depressive disorder, single episode, unspecified; B96.20 Unspecified Escherichia coli [E. coli] as the cause of diseases classified elsewhere; E86.0 Dehydration; G20 Parkinson's disease; E78.00 Pure hypercholesterolemia, unspecified; E86.1 Hypovolemia; I35.0 Nonrheumatic aortic (valve) stenosis; I48.91 Unspecified atrial fibrillation; D64.9 Anemia, unspecified; I16.0 Hypertensive urgency
CPT/HCPCS: 36415; 71045; 76705; 80048; 80053; 80202; 81003; 82248; 82550; 82553; 82728; 82803; 82962; 83605; 83615; 83690; 83735; 83880; 84100; 84443; 84484; 85007; 85025; 85379; 85610; 85730; 86140; 87040; 87081; 87086; 87181; 92950; 93005; 93306; 93970; 94640; 94660; 96361; 96365; 99291; J1815; J3490; J7030; U0002